=== PATIENT | female | born 1975 | race African-American/Black ===

== ENCOUNTER 2016-04-26 09:09 | Emergency (ER) | payer OTHER ==
[2016-04-26 11:21] LABS: APPEARANCE,URINE SLIGHTLY-CLOUDY; BILIRUBIN,URINE NEGATIVE (NEGATIVE); GLUCOSE, URINE NEGATIVE (NEGATIVE); KETONES,URINE NEGATIVE (NEGATIVE); LEUKOCYTE ESTERASE,URINE NEGATIVE (NEGATIVE); NITRITE,URINE NEGATIVE (NEGATIVE); PROTEIN,URINE NEGATIVE (NEGATIVE); URINE SPECIFIC GRAVITY 1.024
--- NOTE | 2016-04-26 11:28 | ER Document Report ---
ED General - General Chief Complaint: Toothache Stated Complaint: TOOTH PAIN Information source: Patient Notes: Patient is a 40-year-old female that presents today with 2 different complaints. She initially states she has had a left upper toothache for 2 days. She denies any facial swelling, vomiting or fevers. She then states that she has had some vaginal discharge and lower abdominal "cramping" for 2-3 days. She denies any dysuria, radiation of the pain, aggravating relieving factors. She denies any nausea, vomiting, fevers, or diarrhea. TRAVEL OUTSIDE OF THE [place] IN LAST 30 DAYS: No - HPI Onset: Other - See above Onset/Duration: Gradual Quality of pain: Cramping Severity: Mild Pain Level: Denies Associated symptoms: Other - See above Exacerbated by: Denies Relieved by: Denies Similar symptoms previously: No Recently seen / treated by doctor: No - Related Data Allergies/Adverse Reactions: amoxicillin [Amoxicillin] Allergy (Verified 04/26/16 09:18) ketorolac [Ketorolac] Allergy (Verified 04/26/16 09:18) Past Medical History - General Information source: Patient - Social History Smoking Status: Never Smoker Cigarette use (# per day): No Chew tobacco use (# tins/day): No Smoking Education Provided: No Frequency of alcohol use: None Drug Abuse: None Family History: Reviewed & Not Pertinent Patient has suicidal ideation: No Patient has homicidal ideation: No - Past Medical History Cardiac Medical History: Reports: Hx Hypertension Pulmonary Medical History: Reports: Hx Asthma Neurological Medical History: Reports: Hx Migraine Renal/ Medical History: Denies: Hx Peritoneal Dialysis Psychiatric Medical History: Reports: Hx Depression Past Surgical History: Reports: Hx Tonsillectomy - 1987, Hx Tubal Ligation - Immunizations Hx Diphtheria, Pertussis, Tetanus Vaccination: Yes Review of Systems - Review of Systems Constitutional: denies: Fever EENT: Nose discharge Gastrointestinal: denies: Diarrhea, Vomiting, Black stools, Rectal bleeding Genitourinary: Discharge. denies: Dysuria, Flank pain, Hematuria, Urgency Female Genitourinary: denies: Musculoskeletal: denies: Joint pain Skin: Other - no hives. denies: Rash Neurological/Psychological: Other - no slurred speech -: Yes All other systems reviewed and negative Physical Exam - Vital signs Vitals: Temp Pulse Resp BP Pulse Ox 97.9 F 90 16 130/88 H 99 04/26/16 09:17 04/26/16 09:17 04/26/16 09:17 04/26/16 09:04/26/16 09:17 Notes: Reviewed vital signs and nursing note as charted by RN. CONSTITUTIONAL: Alert and oriented and responds appropriately to questions. Well -appearing; well-nourished HEAD: Normocephalic; atraumatic EYES: PERRL; Conjunctivae clear, sclerae non-icteric ENT: Normal nose; patient has some mild decay in the left upper posterior molar region without any obvious swelling, induration, or fluctuance. No facial swelling or mastoid tenderness. NECK: Supple without meningismus; non-tender; no cervical lymphadenopathy, no masses ABD/GI: Normal bowel sounds; non-distended; soft, no obvious tenderness to deep palpation of all 4 quadrants of the abdomen including the suprapubic region BACK: The back appears normal and is non-tender to palpation, there is no CVA tenderness EXT: Normal ROM in all joints; non-tender to palpation; no cyanosis, no effusions, no edema SKIN: Normal color for age and race; warm; dry; good turgor; capillary refill < 2 seconds; no acute lesions noted NEURO: Moves all extremities equally; Motor and sensory function intact PSYCH: The patient's mood and manner are appropriate. Grooming and personal hygiene are appropriate. Course - Re-evaluation Re-evalutation: 04/26/16 11:28 Given the history and physical examination I will check a urine test as well as perform a pelvic examination to make sure that there was no obvious vaginal infection. I will also help the patient find an outpatient dentist and provide antibiotics and pain medications. 04/26/16 11:56 Pelvic examination showed no obvious external lesions. Patient had a tampon that had remained in the vaginal vault. No cervical lesions. No cervical motion tenderness or adnexal masses or tenderness. Patient states she finished her period around 7 days ago. 04/26/16 12:21 Urinalysis as recorded. Pelvic examination results as recorded. Patient will be discharged home with strict return precautions as well as antibiotics for tooth pain and referral to dental. - Vital Signs Vital signs: Temp Pulse Resp BP Pulse Ox 97.9 F 90 16 130/88 H 99 04/26/16 09:17 04/26/16 09:17 04/26/16 09:17 04/26/16 09:17 04/26/16 09:17 - Laboratory Laboratory results interpreted by me: 04/26/16 11:10 Urine Urobilinogen 2.0 H Urine Ascorbic Acid 40 H Discharge - Discharge Clinical Impression: Pain, dental Retained tampon Qualifiers: Encounter type: initial encounter Qualified Code(s): T19.2XXA - Foreign body in vulva and vagina, initial encounter Condition: Good Disposition: HOME, SELF-CARE Additional Instructions: Come back immediately with any return of increased abdominal pain, tooth pain, fevers or vomiting, or any other acute problems. Please follow-up with one of the dentists that we have recommended or a dentist of your own choosing. Prescriptions: Clindamycin HCl [Cleocin 300 mg Capsule] 300 mg PO QID #28 capsule Hydrocodone/Acetaminophen [[place] 5-325 Tablet] 1 each PO Q6 PRN #12 tablet PRN Reason: For Pain
[2016-04-26] MEDS ORDERED: METRONIDAZOLE 500 MG TABLET PO ONE (12:26)
[2016-04-26 12:42] VITALS: BP 118/68
[2016-04-26 13:37] LABS: CHLAM PCR NOT DETECTED (NOT DETECT)
== END 2016-04-26 12:53 | disposition home or self-care (01) ==
LOC: ER 09:09
DX: T19.2XXA Foreign body in vulva and vagina, initial encounter (principal); X58.XXXA Exposure to other specified factors, initial encounter; K02.9 Dental caries, unspecified; K08.89 Other specified disorders of teeth and supporting structures; N89.8 Other specified noninflammatory disorders of vagina; R10.30 Lower abdominal pain, unspecified; Z88.0 Allergy status to penicillin; Z88.8 Allergy status to other drugs, medicaments and biological substances; I10 Essential (primary) hypertension; J45.909 Unspecified asthma, uncomplicated; Z98.51 Tubal ligation status
CPT/HCPCS: 81001; 81025; 87210; 87491; 87591; 99283

== ENCOUNTER 2016-05-08 18:25 | Emergency (ER) | payer OTHER | END 2016-05-09 00:03 | disposition left against medical advice (07) | LOC: ER 18:25 | DX: Z53.21 Procedure and treatment not carried out due to patient leaving prior to being seen by health care provider (principal) ==

== ENCOUNTER 2016-09-13 15:48 | Emergency (ER) | payer OTHER ==
--- NOTE | 2016-09-13 18:12 | ER Document Report ---
HPI - HPI Pain Level: 3 Context: 40 yo female c/o dental pain x several days. pt also requesting refills of asthma meds and BP meds. pt is out of meds x 1 week. unable to get appointment at [facility] until end of September per patient. reports her blood pressure is going up and down, and having cough and wheezing. Associated Symptoms: Nonproductive cough Exacerbated by: Denies Relieved by: Denies - ROS Systems Reviewed and Negative: Yes All other systems reviewed and negative - REPRODUCTIVE Reproductive: DENIES: : - DERM Skin Color: Normal Past Medical History - General Information source: Patient - Social History Smoking Status: Current Every Day Smoker Frequency of alcohol use: None Drug Abuse: None Lives with: Family Family History: Reviewed & Not Pertinent Patient has suicidal ideation: No Patient has homicidal ideation: No - Past Medical History Cardiac Medical History: Reports: Hx Hypertension Pulmonary Medical History: Reports: Hx Asthma Neurological Medical History: Reports: Hx Migraine Renal/ Medical History: Denies: Hx Peritoneal Dialysis Psychiatric Medical History: Reports: Hx Depression Past Surgical History: Reports: Hx Tonsillectomy - 1987, Hx Tubal Ligation - Immunizations Hx Diphtheria, Pertussis, Tetanus Vaccination: Yes Vertical Provider Document - CONSTITUTIONAL Agree With Documented VS: Yes Exam Limitations: No Limitations General Appearance: WD/WN, No Apparent Distress - INFECTION CONTROL TRAVEL OUTSIDE OF THE [place] IN LAST 30 DAYS: No - HEENT HEENT: Atraumatic Mouth Diagram: 1 - pain 2 - pain Notes: no gingival edema appreciated - NECK Neck: Supple - RESPIRATORY Respiratory: Wheezing - few expiratory wheezes. no increased work of breathing O2 Sat by Pulse Oximetry: 95 - CARDIOVASCULAR Cardiovascular: Regular Rate, Regular Rhythm - GI/ABDOMEN Gastrointestinal: Abdomen Soft - MUSCULOSKELETAL/EXTREMETIES Musculoskeletal/Extremeties: PARAMJIT, FROM Course - Vital Signs Vital signs: Temp Pulse Resp BP Pulse Ox 98.0 F 97 16 139/85 H 95 09/13/16 15:54 09/13/16 15:54 09/13/16 15:54 09/13/16 15:54 09/13/16 15:54 Discharge - Discharge Clinical Impression: Tooth ache HTN (hypertension) Qualifiers: Hypertension type: essential hypertension Qualified Code(s): I10 - Essential ( primary) hypertension Asthma Qualifiers: Asthma severity: mild intermittent Asthma complication type: uncomplicated Qualified Code(s): J45.20 - Mild intermittent asthma, uncomplicated Instructions: [facility], Penicillin V K ([facility]), Toothache ([facility]) Prescriptions: Albuterol Sulfate [Proair HFA Inhalation Aerosol 8.5 gm MDI] 2 puff IH Q4H PRN # 1 mdi PRN Reason: Budesonide/Formoterol Fumarate [Symbicort Hfa 160-4.5 Mcg Inhaler 6 gm] 2 puff IH Q12 #1 inhaler Clindamycin HCl 150 mg PO Q6H PRN #40 capsule PRN Reason: Hydrochlorothiazide 25 mg PO DAILY #30 tablet Forms: Return to Work
[2016-09-13 18:49] VITALS: BP 130/80
== END 2016-09-13 18:47 | disposition home or self-care (01) ==
LOC: ER 15:48
DX: I10 Essential (primary) hypertension (principal); J45.20 Mild intermittent asthma, uncomplicated; K08.89 Other specified disorders of teeth and supporting structures; F17.200 Nicotine dependence, unspecified, uncomplicated
CPT/HCPCS: 99282

== ENCOUNTER 2016-10-01 06:39 | Emergency (ER) | payer OTHER ==
--- NOTE | 2016-10-01 07:15 | ER Document Report ---
ED General - General Chief Complaint: Urinary Problem Stated Complaint: URINARY SYMPTOMS Time Seen by Provider: 10/01/16 06:55 Mode of Arrival: Ambulatory Information source: Patient Notes: 40-year-old female presents with complaints of pain with urination and blood. Patient notes she had her menses last week denies any fevers or chills admits to suprapubic left lower quadrant abdominal pain Denies any nausea vomiting TRAVEL OUTSIDE OF THE [place] IN LAST 30 DAYS: No - HPI Onset: Yesterday Onset/Duration: Sudden Quality of pain: Sharp Severity: Mild Pain Level: 1 Associated symptoms: Other Exacerbated by: Other - Urination Relieved by: Denies Similar symptoms previously: No Recently seen / treated by doctor: No - Related Data Allergies/Adverse Reactions: amoxicillin [Amoxicillin] Allergy (Verified 09/13/16 15:52) ketorolac [Ketorolac] Allergy (Verified 09/13/16 15:52) Past Medical History - Social History Smoking Status: Never Smoker Cigarette use (# per day): No Chew tobacco use (# tins/day): No Smoking Education Provided: No Family History: Reviewed & Not Pertinent Patient has suicidal ideation: No Patient has homicidal ideation: No - Past Medical History Cardiac Medical History: Reports: Hx Hypertension Pulmonary Medical History: Reports: Hx Asthma Neurological Medical History: Reports: Hx Migraine Renal/ Medical History: Denies: Hx Peritoneal Dialysis Psychiatric Medical History: Reports: Hx Depression Past Surgical History: Reports: Hx Oral Surgery, Hx Tonsillectomy - 1987, Hx Tubal Ligation - Immunizations Hx Diphtheria, Pertussis, Tetanus Vaccination: Yes Review of Systems - Review of Systems Notes: REVIEW OF SYSTEMS: CONSTITUTIONAL : Denies fever, chills, or sweats. Denies recent illness. EENT: Denies eye, ear, throat, or mouth pain or symptoms. Denies nasal or sinus congestion or discharge. Denies throat, tongue, or mouth swelling or difficulty swallowing. CARDIOVASCULAR: Denies chest pain. Denies palpitations or racing or irregular heart beat. Denies ankle edema. RESPIRATORY: Denies cough, cold, or chest congestion. Denies shortness of breath, difficulty breathing, or wheezing. GASTROINTESTINAL: Denies abdominal pain or distention. Denies nausea, vomiting , or diarrhea. Denies blood in vomitus, stools, or per rectum. Denies black, tarry stools. Denies constipation. GENITOURINARY: Admits to pain with urination blood in urine FEMALE GENITOURINARY: Denies vaginal bleeding, heavy or abnormal periods, irregular periods. Denies vaginal discharge or odor. MUSCULOSKELETAL: Denies back or neck pain or stiffness. Denies joint pain or swelling. SKIN: Denies rash, lesions or sores. HEMATOLOGIC : Denies easy bruising or bleeding. LYMPHATIC: Denies swollen, enlarged glands. NEUROLOGICAL: Denies confusion or altered mental status. Denies passing out or loss of consciousness. Denies dizziness or lightheadedness. Denies headache. Denies weakness or paralysis or loss of use of either side. Denies problems with gait or speech. Denies sensory loss, numbness, or tingling. Denies seizures. PSYCHIATRIC: Denies anxiety or stress. Denies depression, suicidal ideation, or homicidal ideation. ALL OTHER SYSTEMS REVIEWED AND NEGATIVE. PHYSICAL EXAMINATION: GENERAL: Well-appearing, well-nourished and in no acute distress. HEAD: Atraumatic, normocephalic. EYES: Pupils equal round and reactive to light, extraocular movements intact, conjunctiva are normal. ENT: Nares patent, oropharynx clear without exudates. Moist mucous membranes. NECK: Normal range of motion, supple without lymphadenopathy LUNGS: Breath sounds clear to auscultation bilaterally and equal. No wheezes rales or rhonchi. HEART: Regular rate and rhythm without murmurs ABDOMEN: Soft, mild suprapubic left lower quadrant abdominal pain no rebound no guarding no peritoneal signs Female : deferred Musculoskeletal: Normal range of motion, no pitting or edema. No cyanosis. NEUROLOGICAL: Cranial nerves grossly intact. Normal speech, normal gait. Normal sensory, motor exams PSYCH: Normal mood, normal affect. SKIN: Warm, Dry, normal turgor, no rashes or lesions noted. Dictation was performed using [employer] voice recognition software Physical Exam - Vital signs Vitals: Temp Pulse Resp BP Pulse Ox 97.3 F 78 16 136/72 H 99 10/01/16 06:45 10/01/16 06:45 10/01/16 06:45 10/01/16 06:45 10/01/16 06:45 Course - Re-evaluation Re-evalutation: 10/01/16 07:15 Urinalysis hCG are pending at this time 10/01/16 07:51 Urinalysis is consistent with an infectious process, otherwise patient is in no distress and will be discharged at this time After performing a Medical Screening Examination, I estimate there is LOW risk for ACUTE APPENDICITIS, BOWEL OBSTRUCTION, ACUTE CHOLECYSTITIS, PERFORATED DIVERTICULITIS, INCARCERATED HERNIA, PANCREATITIS, PELVIC INFLAMMATORY DISEASE, PERFORATED ULCER, ECTOPIC , or TUBO-OVARIAN ABSCESS, thus I consider the discharge disposition reasonable. Also, there is no evidence or peritonitis , sepsis, or toxicity. I have reevaluated this patient multiple times and no significant life threatening changes are noted. The patient and I have discussed the diagnosis and risks, and we agree with discharging home with close follow-up with the understanding that symptoms and presentations can change. We also discussed returning to the Emergency Department immediately if new or worsening symptoms occur. We have discussed the symptoms which are most concerning (e.g., bloody stool, fever, changing or worsening pain, vomiting) that necessitate immediate return. - Vital Signs Vital signs: Temp Pulse Resp BP Pulse Ox 97.3 F 78 16 136/72 H 99 10/01/16 06:45 10/01/16 06:45 10/01/16 06:45 10/01/16 06:45 10/01/16 06:45 - Laboratory Laboratory results interpreted by me: 10/01/16 07:22 Urine Protein 100 H Urine Blood LARGE H Ur Leukocyte Esterase MODERATE H Discharge - Discharge Clinical Impression: UTI (urinary tract infection) Qualifiers: Urinary tract infection type: acute cystitis Hematuria presence: with hematuria Qualified Code(s): N30.01 - Acute cystitis with hematuria Condition: Stable Disposition: HOME, SELF-CARE Instructions: Urinary Tract Infection ([facility]) Additional Instructions: Follow up with your physician tomorrow for further care or return to the ED IMMEDIATELY if symptoms worsen or new concerns occur. If you cannot afford to follow up with your primary care physician a list of low cost clinics have been provided at the end of your discharge papers as well. Prescriptions: Cephalexin Monohydrate [Keflex 500 mg Capsule] 500 mg PO BID #20 capsule Phenazopyridine HCl [Pyridium 100 Mg Tablet] 100 mg PO Q8 #9 tablet
[2016-10-01 07:45] LABS: AMORPHOUS SEDIMENT,URINE TRACE /HPF; APPEARANCE,URINE SLIGHTLY-CLOUDY; BILIRUBIN,URINE NEGATIVE (NEGATIVE); GLUCOSE, URINE NEGATIVE (NEGATIVE); KETONES,URINE NEGATIVE (NEGATIVE); LEUKOCYTE ESTERASE,URINE MODERATE (NEGATIVE); NITRITE,URINE NEGATIVE (NEGATIVE); PROTEIN,URINE 100 mg/dL (NEGATIVE); URINE SPECIFIC GRAVITY 1.017; UROBILINOGEN,URINE NEGATIVE mg/dL (<2.0)
[2016-10-01 08:20] VITALS: BP 131/79
== END 2016-10-01 08:15 | disposition home or self-care (01) ==
LOC: ER 06:39
DX: N30.01 Acute cystitis with hematuria (principal); R30.0 Dysuria; R10.32 Left lower quadrant pain; J45.909 Unspecified asthma, uncomplicated; I10 Essential (primary) hypertension; Z88.0 Allergy status to penicillin; Z88.8 Allergy status to other drugs, medicaments and biological substances
CPT/HCPCS: 81001; 81025; 99283

== ENCOUNTER 2017-06-22 17:37 | Emergency (ER) | payer SELFPAY ==
[2017-06-22] MEDS ORDERED: PREDNISONE 20 MG TABLET PO ONE (18:38)
[2017-06-22] MEDS ORDERED: IPRATROPIUM/ALBUTEROL 0.5-2.5 MG/3 ML AMPUL NEB ONE (18:38)
[2017-06-22] MEDS ORDERED: CLINDAMYCIN HCL 150 MG CAPSULE PO ONE (18:38)
[2017-06-22] MEDS ORDERED: LIDOCAINE 2% VISCOUS SOLN 20 ML UDCUP PO ONE (18:40)
[2017-06-22] MEDS ORDERED: ALBUTEROL SULFATE HFA (90 MCG/PUFF) 8 GM MDI (1 MDI/ER DISP) IH ONE (18:40)
--- NOTE | 2017-06-22 18:41 | ER Document Report ---
ED General - General Chief Complaint: Toothache Stated Complaint: TOOTH PAIN Time Seen by Provider: 06/22/17 18:23 Mode of Arrival: Ambulatory Information source: Patient Notes: 41-year-old female presents to ED for complaint of left upper back tooth pain for 2 days. She states the pain is actually been for over a month but the filling fell out 2 days ago. She states she is contacted a dentist but they were unable to see her. She states that there is no cold or heat sensitivity but there is sensitivity to food. She states she did not know the care in [facility] dentist was available. She states she has not called those and she will call them on Sunday. Patient states she also has a history of asthma and has been out of her asthma medicine and her blood pressure medicine. She states she her albuterol inhaler is empty. TRAVEL OUTSIDE OF THE [place] IN LAST 30 DAYS: No - HPI Onset: Other - States pain is been for about a month but it got a less worse when the filling fell out 2 days ago Onset/Duration: Intermittent Quality of pain: Sharp, Throbbing Severity: Moderate Pain Level: 4 Associated symptoms: Shortness of breath - Wheezing, Other - Dental pain Exacerbated by: Food Relieved by: Denies Similar symptoms previously: Yes Recently seen / treated by doctor: No - Related Data Allergies/Adverse Reactions: amoxicillin [Amoxicillin] Allergy (Verified 06/22/17 17:38) ketorolac [Ketorolac] Allergy (Verified 06/22/17 17:38) Past Medical History - General Information source: Patient - Social History Smoking Status: Never Smoker Cigarette use (# per day): No Chew tobacco use (# tins/day): No Smoking Education Provided: No Frequency of alcohol use: Occasional Drug Abuse: None Lives with: Family Family History: Arthritis, CVA, Hyperlipidemia, Hypertension, Malignancy, Thyroid Disfunction. denies: CAD, COPD, DM Patient has suicidal ideation: No Patient has homicidal ideation: No - Past Medical History Cardiac Medical History: Reports: Hx Hypertension Pulmonary Medical History: Reports: Hx Asthma EENT Medical History: Reports: None Neurological Medical History: Reports: Hx Migraine Endocrine Medical History: Reports: None Renal/ Medical History: Reports: None Malignancy Medical History: Reports: None GI Medical History: Reports: None Musculoskeltal Medical History: Reports None Skin Medical History: Reports None Psychiatric Medical History: Reports: Hx Depression Traumatic Medical History: Reports: None Infectious Medical History: Reports: None Past Surgical History: Reports: Hx Oral Surgery - dental, Hx Tonsillectomy - 1988, Hx Tubal Ligation - Immunizations Immunizations up to date: Yes Hx Diphtheria, Pertussis, Tetanus Vaccination: Yes Review of Systems - Review of Systems Constitutional: No symptoms reported EENT: Dental problem Cardiovascular: No symptoms reported Respiratory: Cough, Short of breath, Wheezing Gastrointestinal: No symptoms reported Genitourinary: No symptoms reported Female Genitourinary: No symptoms reported Musculoskeletal: No symptoms reported Skin: No symptoms reported Hematologic/Lymphatic: No symptoms reported Neurological/Psychological: No symptoms reported -: Yes All other systems reviewed and negative Physical Exam - Vital signs Vitals: Temp Pulse Resp BP Pulse Ox 98.9 F 93 16 135/80 H 96 06/22/17 17:45 06/22/17 17:45 06/22/17 17:45 06/22/17 17:45 06/22/17 17:45 Interpretation: Normal - General General appearance: Appears well, Alert - HEENT Head: Normocephalic, Atraumatic Eyes: Normal Pupils: PERRL Ears: Normal External canal: Normal Tympanic membrane: Normal Sinus: Normal Nasal: Normal Mouth/Lips: Caries Teeth diagram: 1 - Dental cavity tooth #15 she does not have any of her wisdom teeth Pharynx: Normal Neck: Normal - Respiratory Respiratory status: No respiratory distress Chest status: Nontender Breath sounds: Nonproductive cough, Wheezing Chest palpation: Normal - Cardiovascular Rhythm: Regular Heart sounds: Normal auscultation Murmur: No - Abdominal Inspection: Normal Distension: No distension Bowel sounds: Normal Tenderness: Nontender Organomegaly: No organomegaly - Back Back: Normal, Nontender - Extremities General upper extremity: Normal inspection, Nontender, Normal color, Normal ROM , Normal temperature General lower extremity: Normal inspection, Nontender, Normal color, Normal ROM , Normal temperature, Normal weight bearing. No: Viki's sign - Neurological Neuro grossly intact: Yes Cognition: Normal Orientation: AAOx4 [place] Coma Scale Eye Opening: Spontaneous [place] Coma Scale Verbal: Oriented [place] Coma Scale Motor: Obeys Commands [place] Coma Scale Total: 15 Speech: Normal Motor strength normal: LUE, RUE, LLE, RLE Sensory: Normal - Psychological Associated symptoms: Normal affect, Normal mood - Skin Skin Temperature: Warm Skin Moisture: Dry Skin Color: Normal Course - Re-evaluation Re-evalutation: 06/22/17 20:04 Patient presented to ED for dental pain. When I was assessing her for the dental pain she says all when I also have asthma and him having a bad attack right now I do not have an albuterol inhaler at home. She states she has been wheezing for several days and she [facility] and they stated that they could not get her in for 2 months. She states she is also out of her blood pressure medicine. She states she takes hydrochlorothiazide 25 mg p.o. daily been out of that for couple days. He says her albuterol inhaler has been up for at least several days. Patient was treated with albuterol and DuoNeb nebulizer treatments prednisone and clindamycin for her dental pain she was also given viscous lidocaine for her dental pain on her tooth. Patient was discharged home with a syringe of viscous lidocaine and prescriptions for hydrochlorothiazide clindamycin and prednisone. Patient was given the name and number for the care in [facility]. She is also supposed to keep up with her care in [facility] and call them on Sunday and tell them she is out of her blood pressure and asthma medication that I have given her 1 month supply of hydrochlorothiazide and an albuterol inhaler but that she does need to have these medications refilled when these run out. Patient's respirations are much better after her breathing treatments and steroids. She is no longer wheezing respirations are regular and unlabored. Will discharge home at this time. - Vital Signs Vital signs: Temp Pulse Resp BP Pulse Ox 98.9 F 93 16 135/80 H 96 06/22/17 17:45 06/22/17 17:45 06/22/17 17:45 06/22/17 17:45 06/22/17 17:45 Discharge - Discharge Clinical Impression: Pain due to dental caries Asthma exacerbation Qualifiers: Asthma severity: unspecified severity Asthma persistence: unspecified Qualified Code(s): J45.901 - Unspecified asthma with (acute) exacerbation Condition: Stable Disposition: HOME, SELF-CARE Additional Instructions: ASTHMA: You have been diagnosed as having asthma. This is a condition where there is episodic tightness in the bronchial tubes. Allergies, infections, and polluted or cold air may be contributing factors. Emergency treatment of a severe asthma attack may include adrenaline shots , or bronchodilator aerosol. You may feel lightheaded, have a decreased exercise tolerance and a rapid pulse for an hour or two. Rest and get plenty of fluids. Home treatment of asthma requires bronchodilator drugs. These can be administered by injection, inhalation, or by mouth. Antibiotics and corticosteroids may be required for some patients. You should avoid chemical fumes, dusts, pollens, and exercising in very cold or dry air. If you smoke, stop!! If you develop a fever, increased wheezing, chest pain, or severe shortness of breath, you should contact the doctor immediately STEROID MEDICATION: You have been given an injection of or oral medicine of the cortisone/ steroid class. This medication is used to control inflammation or allergy. Danilo t is usually only given for a short period of time, until the acute process subsides. There are usually no side effects from short-term use of cortisone-like medications. Some persons feel an increased sense of well-being and are not sleepy at bedtime. Long-term use of cortisone medications is best avoided, unless required for a severe condition. If your condition does not remit, or relapses after the course of corticosteroid medication, you should consult your physician. INHALED BRONCHODILATORS: You have received treatment(s) of and/or prescription for an inhaled bronchodilator -- a medication which stimulates the airways in the lung to dilate. This improves the flow of air in asthma, bronchitis, and emphysema. These medicines have some similarity to adrenaline, and can cause similar side effects: shakiness, racing heart, and a sense of nervousness. These side effects decrease with time. Contact your doctor if these side effects are severe. Do not over-use the medicine. Too-frequent use of the inhaler may make it ineffective. Call your doctor if the inhaler is not controlling your symptoms at the prescribed doses. TOOTHACHE: Your pain is due to dental decay. The tooth must be repaired in order for you to feel better. You will, therefore, be referred to a dentist. We do not have dentists on the staff at [facility]. Severe swelling or drainage around a tooth usually means a dental abscess. This also requires evaluation and treatment by the dentist, but antibiotics may be prescribed while awaiting dental treatment. You should be rechecked immediately if you develop major swelling of the face, increasing pain, a lump in the jaw or gums, headache, difficulty swallowing, or fever. CLINDAMYCIN: You have been given a prescription for the antibiotic clindamycin. It is often prescribed for infections in the mouth, such as dental infections or abscesses, and for skin infections due to MRSA. It's important that you take all the medication, unless instructed otherwise by your physician. Failure to complete the entire course can result in relapse of your condition. Common side effects of antibiotics include nausea, intestinal cramping, or diarrhea. Women may develop vaginal yeast infections, and babies can get yeast (thrush) in the mouth following the use of antibiotics. Contact your physician if you develop significant side effects from this medication. Allergy to this antibiotic can result in hives, wheezing, faintness, or itching. If symptoms of allergy occur, stop the medication and call the doctor. You have been given a syringe full of viscous lidocaine. You can put a small amount of this lidocaine on your finger and put it on your tooth and around your tooth be sure you get some in the tooth every 2-3 hours for your pain. FOLLOW-UP CARE: You have been referred for follow-up care to the dentists listed below. Call the dentists office for an appointment as you were instructed or within the next two days. If you experience worsening or a significant change in your symptoms, notify the physician immediately or return to the Emergency Department at any time for re-evaluation. [facility] [address] [place], [place] [phone] [facility] [address] [place] [address] [facility] [address] [facility] [address] [facility] [address] [facility]. [facility] [address] [email or web address] [address] [place] [address] Sunday- 8:00am to 5:00 pm Will see patients from other [facility]. Charges based on income and family size and accepts Medicare, Medicaid, and Insurances Will pull molars [facility], [facility] [id number] Hours of Operation 8:00 am - 4:30 pm weekdays The following dental offices accept Medicaid: [facility] Dr. Bey Dr. Ordoñez Dr. Langston Dr. Maradiaga Alberto Piña, [place], and [place] oral surgery Dr. Lopez ([place]) Dr. Hughes ([place]) [facility] Drs. Nielsen ([place]) Dr. Garcia ([place]) [facility] Dr. Sahu ([place]) Drs. Denise and ([place]) Medicaid Care Line Prescriptions: Clindamycin HCl 300 mg PO Q6HP PRN #28 capsule PRN Reason: Hydrochlorothiazide 25 mg PO DAILY #30 tablet Prednisone [Deltasone 20 mg Tablet] 3 tab PO DAILY 5 Days tablet Forms: Elevated Blood Pressure Referrals: [facility] [Primary Care Provider] - Follow up as needed
[2017-06-22] MEDS: ALBUTEROL SULFATE 0.083% NEB 2.5 MG/3 ML AMPUL NEB SCH ×2 (18:51→19:39)
[2017-06-22 20:27] VITALS: BP 137/82
== END 2017-06-22 20:20 | disposition home or self-care (01) ==
LOC: ER 17:37
DX: K02.9 Dental caries, unspecified (principal); K08.89 Other specified disorders of teeth and supporting structures; J45.901 Unspecified asthma with (acute) exacerbation; T48.6X6A Underdosing of antiasthmatics, initial encounter; Z91.128 Patient's intentional underdosing of medication regimen for other reason; Z91.14 Patient's other noncompliance with medication regimen; I10 Essential (primary) hypertension; T50.2X6A Underdosing of carbonic-anhydrase inhibitors, benzothiadiazides and other diuretics, initial encounter; R05 Cough; Z88.0 Allergy status to penicillin; Z88.8 Allergy status to other drugs, medicaments and biological substances
CPT/HCPCS: 94640 ×2; 99282; J3490 ×2; J7512; J7620

== ENCOUNTER 2017-08-04 20:19 | Emergency (ER) | payer SELFPAY ==
[2017-08-04] MEDS ORDERED: ALBUTEROL SULFATE 0.083% NEB 2.5 MG/3 ML AMPUL NEB ONE (21:51)
[2017-08-04] MEDS ORDERED: IPRATROPIUM/ALBUTEROL 0.5-2.5 MG/3 ML AMPUL NEB ONE (21:51)
[2017-08-04] MEDS ORDERED: DOXYCYCLINE HYCLATE 100 MG TABLET PO ONE (22:07)
[2017-08-04] MEDS ORDERED: PREDNISONE 20 MG TABLET PO ONE (22:07)
[2017-08-04] MEDS ORDERED: GUAIFENESIN/CODEINE PHOS 100-10 MG/ 5 ML UDC PO ONE (22:09)
--- NOTE | 2017-08-04 22:09 | ER Document Report ---
ED General - General Chief Complaint: Asthma Exacerbation Stated Complaint: CHEST PAIN Time Seen by Provider: 08/04/17 21:43 Mode of Arrival: Ambulatory Information source: Patient, Relative Notes: 41-year-old female with a history of asthma, hypertension presents with complaint of shortness of breath that started 3 days prior to arrival. Patient has had associated dry, persistent cough and chest pain with coughing only despite her albuterol inhaler. Patient was seen 3 weeks prior to arrival and placed on prednisone and a antibiotic for which she is unsure of the name. Patient denies any new exposures, sick contacts. She states cough worsens anytime "I go to bed and shut my door". Patient has not required hospitalization or intubation for asthma. She denies tobacco use or secondhand smoke exposure. TRAVEL OUTSIDE OF THE [place] IN LAST 30 DAYS: No - HPI Onset: Other - 3 days prior to arrival Quality of pain: Burning Associated symptoms: Nonproductive cough, Shortness of breath. denies: Fever, Hoarseness, Nausea, Vomiting Exacerbated by: Denies Relieved by: Denies Similar symptoms previously: Yes Recently seen / treated by doctor: Yes - Related Data Allergies/Adverse Reactions: amoxicillin [Amoxicillin] Allergy (Verified 06/22/17 17:38) ketorolac [Ketorolac] Allergy (Verified 06/22/17 17:38) Past Medical History - General Information source: Patient - Social History Smoking Status: Never Smoker Chew tobacco use (# tins/day): No Frequency of alcohol use: None Drug Abuse: None Lives with: Family Family History: Arthritis, CVA, Hyperlipidemia, Hypertension, Malignancy, Thyroid Disfunction. denies: CAD, COPD, DM Patient has suicidal ideation: No Patient has homicidal ideation: No - Past Medical History Cardiac Medical History: Reports: Hx Hypertension Pulmonary Medical History: Reports: Hx Asthma Neurological Medical History: Reports: Hx Migraine Renal/ Medical History: Denies: Hx Peritoneal Dialysis Psychiatric Medical History: Reports: Hx Depression Past Surgical History: Reports: Hx Oral Surgery - dental, Hx Tonsillectomy - 1987, Hx Tubal Ligation - Immunizations Immunizations up to date: Yes Hx Diphtheria, Pertussis, Tetanus Vaccination: Yes Review of Systems - Review of Systems Notes: Patient denies fever, chills, nausea, vomiting, headache, ear pain, sore throat , abdominal pain, back pain, dysuria, hematuria, rash, SI/HI. Physical Exam - Vital signs Vitals: Temp Pulse Resp BP Pulse Ox 98.5 F 99 20 127/81 H 94 08/04/17 20:34 08/04/17 20:34 08/04/17 20:34 08/04/17 20:34 08/04/17 20:34 Interpretation: Normal. No: Hypoxic, Tachypneic, Febrile Notes: PHYSICAL EXAMINATION: GENERAL: Well-appearing, well-nourished and in no acute distress. HEAD: Atraumatic, normocephalic. EYES: Pupils equal round and reactive to light, extraocular movements intact, conjunctiva are normal. ENT: Nares patent, oropharynx clear without exudates. Moist mucous membranes. NECK: Normal range of motion, supple without lymphadenopathy LUNGS: Diffuse wheezing, accessory muscle use. HEART: Regular rate and rhythm without murmurs ABDOMEN: Soft, nontender, nondistended abdomen. No guarding, no rebound. No masses appreciated. Female : deferred Musculoskeletal: Normal range of motion, no pitting or edema. No cyanosis. NEUROLOGICAL: Cranial nerves grossly intact. Normal speech, normal gait. Normal sensory, motor exams PSYCH: Normal mood, normal affect. SKIN: Warm, Dry, normal turgor, no rashes or lesions noted. Course - Re-evaluation Re-evalutation: 41-year-old female with a history of asthma, hypertension presents with complaint of shortness of breath that started 3 days prior to arrival. Patient has had associated dry, persistent cough and chest pain with coughing only despite her albuterol inhaler. Patient was seen 3 weeks prior to arrival and placed on prednisone and a antibiotic for which she is unsure of the name. Patient denies any new exposures, sick contacts. She states cough worsens anytime "I go to bed and shut my door". Patient has not required hospitalization or intubation for asthma. She denies tobacco use or secondhand smoke exposure. Upon arrival vitals reviewed. Patient does not appear toxic or dehydrated. She is in no acute distress. Exam is significant for audible wheezing, a harsh cough and mild accessory muscle use. Patient received breathing treatments, azithromycin, prednisone and Robitussin. On reevaluation she reports improvement and comfort with discharge home. 08/04/17 22:57 On reevaluation patient states her shortness of breath has greatly improved. She is very thankful. She states she will follow-up with the [facility] clinic. 08/05/17 19:49. Patient provided the opportunity to ask questions, and express concerns. Discharge instructions discussed. Patient is agreeable with discharge home. Return indications explained and discussed with the patient who displays understanding. Patient encouraged to return to the emergency department immediately with any concerns. - Vital Signs Vital signs: Temp Pulse Resp BP Pulse Ox 98.5 F 99 16 121/76 97 08/04/17 23:09 08/04/17 20:34 08/04/17 23:09 08/04/17 23:09 08/04/17 23:09 - Diagnostic Test Radiology reviewed: Pending, Image reviewed, Reports reviewed Discharge - Discharge Clinical Impression: Asthma exacerbation Qualifiers: Asthma severity: mild Asthma persistence: unspecified Qualified Code(s): J45.901 - Unspecified asthma with (acute) exacerbation Disposition: HOME, SELF-CARE Instructions: Asthma ([facility]), Inhaled Bronchodilators ([facility]) Additional Instructions: Follow up with your physician tomorrow for further care or return to the ED IMMEDIATELY if symptoms worsen or new concerns occur. If you cannot afford to follow up with your primary care physician a list of low cost clinics have been provided at the end of your discharge papers as well. Prescriptions: Guaifenesin/Codeine Phos [Robitussin-AC Syrup 59 ml] 5 ml PO QHS PRN #50 ml PRN Reason: Cough Doxycycline Hyclate 100 mg PO BID 7 Days #14 capsule Prednisone [Deltasone 20 mg Tablet] 3 tab PO DAILY 5 Days #15 tablet Forms: Elevated Blood Pressure
--- NOTE | 2017-08-04 23:15 | RADIOLOGY REPORT (SQ) ---
EXAM DESCRIPTION: CHEST 2 VIEWS COMPLETED DATE/TIME: 08/04/2017 11:07 pm REASON FOR STUDY: sob COMPARISON: 11/13/2015 EXAM PARAMETERS: NUMBER OF VIEWS: two views TECHNIQUE: Digital Frontal and Lateral radiographic views of the chest acquired. RADIATION DOSE: NA LIMITATIONS: none FINDINGS: LUNGS AND PLEURA: No opacities, masses or pneumothorax. No pleural effusion. MEDIASTINUM AND HILAR STRUCTURES: No masses or contour abnormalities. HEART AND VASCULAR STRUCTURES: Heart normal size. No evidence for failure. BONES: No acute findings. HARDWARE: None in the chest. OTHER: No other significant finding. IMPRESSION: NO ACUTE RADIOGRAPHIC FINDING IN THE CHEST. TECHNICAL DOCUMENTATION: JOB ID: [id number] [employer]- All Rights Reserved Reading location - IP/workstation name: [email or web address]
[2017-08-04 23:19] VITALS: BP 121/76
--- NOTE | 2017-08-05 10:28 | EKG REPORT ---
SEVERITY:- BORDERLINE ECG - SINUS RHYTHM BORDERLINE T WAVE ABNORMALITIES : Confirmed by: Fide Solis 05-Aug-2017 10:28:31
== END 2017-08-04 23:19 | disposition home or self-care (01) ==
LOC: ER 20:19
DX: J45.901 Unspecified asthma with (acute) exacerbation (principal); R07.9 Chest pain, unspecified; R06.02 Shortness of breath; R05 Cough; I10 Essential (primary) hypertension
CPT/HCPCS: 93005; 94640 ×2; 99285; 71046; 93010; J7512; J7620

== ENCOUNTER 2017-09-06 21:02 | Emergency (ER) | payer SELFPAY ==
--- NOTE | 2017-09-06 22:40 | ER Document Report ---
ED Breast Problem - General Chief Complaint: Breast Lump Stated Complaint: BREAST PAIN Time Seen by Provider: 09/06/17 22:29 Mode of Arrival: Ambulatory Information source: Patient Notes: 41-year-old female with hypertension, asthma presents with complaint of right breast pain. Patient states pain has been present for approximately 2 weeks. It is located on the lateral aspect of her right breast. She describes the breast pain as a stabbing, throbbing pain that is worse with palpation. She has not tried any medication for this. She denies any injury to the breast, prior similar symptoms, history of breast cancer. Patient is currently menstruating. She denies any redness of the breast warmth, discharge. She denies any recent illnesses including fever, chills, nausea, vomiting, chest pain, shortness of breath. She has never had a mammogram before. TRAVEL OUTSIDE OF THE [place] IN LAST 30 DAYS: No - HPI Patient complains to provider of: Tenderness Onset: Last week Onset/Duration: Gradual, Worse Quality of pain: Stabbing, Throbbing Severity: Mild Context: No: , Injury, Piercing Discharge description: None Associated Symptoms: denies: Chest pain, Fever, Nausea, Vomiting, Shortness of breath Similar symptoms previously: No Recently seen / treated by doctor: No - Related Data Allergies/Adverse Reactions: amoxicillin [Amoxicillin] Allergy (Verified 06/22/17 17:38) ketorolac [Ketorolac] Allergy (Verified 06/22/17 17:38) Past Medical History - General Information source: Patient, [facility] Records - Social History Smoking Status: Former Smoker Frequency of alcohol use: Occasional Drug Abuse: None Lives with: Family Family History: Arthritis, CVA, Hyperlipidemia, Hypertension, Malignancy, Thyroid Disfunction. denies: CAD, COPD, DM Patient has suicidal ideation: No Patient has homicidal ideation: No - Past Medical History Cardiac Medical History: Reports: Hx Hypertension Pulmonary Medical History: Reports: Hx Asthma Neurological Medical History: Reports: Hx Migraine Renal/ Medical History: Denies: Hx Peritoneal Dialysis Psychiatric Medical History: Reports: Hx Depression Past Surgical History: Reports: Hx Oral Surgery - dental, Hx Tonsillectomy - 1987, Hx Tubal Ligation - Immunizations Immunizations up to date: Yes Hx Diphtheria, Pertussis, Tetanus Vaccination: Yes Review of Systems - Review of Systems Notes: REVIEW OF SYSTEMS: CONSTITUTIONAL : Denies fever, chills, or sweats. Denies recent illness. Denies weight loss, recent hospitalizations. EENT: Denies visula changes, eye pain. Denies nasal or sinus congestion or discharge. Denies sore throat, oral lesions, difficulty swallowing. CARDIOVASCULAR: Denies chest pain. Denies palpitations or racing or irregular heart beat. Denies lower extremity edema. RESPIRATORY: Denies cough, cold, or chest congestion. Denies shortness of breath, difficulty breathing, or wheezing. GASTROINTESTINAL: Denies abdominal pain or distention. Denies nausea, vomiting , or diarrhea. Denies blood in vomitus, stools, or per rectum. Denies black, tarry stools. Denies constipation. GENITOURINARY: Denies difficulty urinating, painful urination, burning, frequency, blood in urine, or vaginal discharge. MUSCULOSKELETAL: Denies back or neck pain or stiffness. Denies joint pain or swelling. SKIN: Denies rash, lesions or sores. HEMATOLOGIC : Denies easy bruising or bleeding. LYMPHATIC: Denies swollen, enlarged glands. NEUROLOGICAL: Denies confusion or altered mental status. Denies passing out or loss of consciousness. Denies dizziness or lightheadedness. Denies headache. Denies weakness or paralysis or loss of use of either side. Denies problems with gait or speech. Denies sensory loss, numbness, or tingling. Denies seizures. PSYCHIATRIC: Denies anxiety or stress. Denies depression, suicidal ideation, or homicidal ideation. Physical Exam - Vital signs Vitals: Temp Pulse Resp BP Pulse Ox 98.8 F 75 16 145/78 H 96 09/06/17 21:46 09/06/17 21:46 09/06/17 21:46 09/06/17 21:46 09/06/17 21:46 Interpretation: Normal, Hypertensive - Notes Notes: PHYSICAL EXAMINATION: GENERAL: Well-appearing, well-nourished and in no acute distress. HEAD: Atraumatic, normocephalic. EYES: Pupils equal round and reactive to light, extraocular movements intact, conjunctiva are normal. ENT: Nares patent, oropharynx clear without exudates. Moist mucous membranes. NECK: Normal range of motion, supple without lymphadenopathy LUNGS: Breath sounds clear to auscultation bilaterally and equal. No wheezes rales or rhonchi. HEART: Regular rate and rhythm without murmurs ABDOMEN: Soft, nontender, nondistended abdomen. No guarding, no rebound. No masses appreciated. Female breast: 3 pea-sized masses of the right breast at 8 9 and 10:00 no associated erythema, induration or fluctuance. No nipple discharge. Musculoskeletal: Normal range of motion, no pitting or edema. No cyanosis. NEUROLOGICAL: Cranial nerves grossly intact. Normal speech, normal gait. Normal sensory, motor exams PSYCH: Normal mood, normal affect. SKIN: Warm, Dry, normal turgor, no rashes or lesions noted. Course - Re-evaluation Re-evalutation: 09/06/17 22:50 41-year-old female with hypertension, asthma presents with complaint of right breast pain. Patient states pain has been present for approximately 2 weeks. It is located on the lateral aspect of her right breast. She describes the breast pain as a stabbing, throbbing pain that is worse with palpation. She has not tried any medication for this. She denies any injury to the breast, prior similar symptoms, history of breast cancer. Patient is currently menstruating. Patient was seen by myself upon arrival. Vital signs were reviewed. Patient is afebrile, mildly hypertensive and not hypoxic. Patient does not appear toxic or dehydrated. They are in no acute distress. Previous medical records and nursing notes reviewed. Significant findings include 3 tender pea-sized area of the right breast without associated erythema, induration or fluctuance. No nipple discharge. Left breast within normal limits. I did explain to the patient that she would require a mammogram. I have [facility] or the health department for this. Patient advised to take Tylenol as needed for pain. Patient provided the opportunity to ask questions, and express concerns. Discharge instructions discussed. Patient is agreeable with discharge home. Return indications explained and discussed with the patient who displays understanding. Patient encouraged to return to the emergency department immediately with any concerns. 09/06/17 22:51 - Vital Signs Vital signs: Temp Pulse Resp BP Pulse Ox 98.8 F 75 16 145/78 H 96 09/06/17 21:46 09/06/17 21:46 09/06/17 21:46 09/06/17 21:46 09/06/17 21:46 Discharge - Discharge Clinical Impression: Breast lump or mass Condition: Good Disposition: HOME, SELF-CARE Instructions: Mammography ([facility]) Additional Instructions: You may also call the [facility] health department of [place] for further assistance. You will need a mammogram for definitive diagnosis. Please return if your breast pain worsens, you notice redness around the area or you experience discharge from the nipples. Follow up with your physician tomorrow for further care or return to the ED IMMEDIATELY if symptoms worsen or new concerns occur. If you cannot afford to follow up with your primary care physician a list of low cost clinics have been provided at the end of your discharge papers as well. Forms: Elevated Blood Pressure Referrals: [facility] - Follow up as needed [facility] [Provider Group] - Follow up as needed
[2017-09-06 23:02] VITALS: BP 140/86
== END 2017-09-06 23:02 | disposition home or self-care (01) ==
LOC: ER 21:02
DX: N63.11 Unspecified lump in the right breast, upper outer quadrant (principal); N63.13 Unspecified lump in the right breast, lower outer quadrant; N64.4 Mastodynia; Z87.891 Personal history of nicotine dependence; I10 Essential (primary) hypertension; J45.909 Unspecified asthma, uncomplicated
CPT/HCPCS: 99283

== ENCOUNTER → 2017-10-18 | Outpatient (CLI) | payer OTHER, MEDICAID ==
--- NOTE | 2017-10-18 17:03 | WOMENS IMAGING REPORT ---
EXAM DESCRIPTION: BILAT DIAGNOSTIC MAMMO W/CAD; U/S BREAST UNILAT LIMITED COMPLETED DATE/TIME: 10/18/2017 10:43 am; 10/18/2017 11:29 am REASON FOR STUDY: RT BREAST LUMP N63.10; RT BREAST PALP; N63.10; LEFT BREAST N63.10 UNSPECIFIED LUM P IN THE RIGHT BREAST, UNSPECIFIED PAULO COMPARISON: None. TECHNIQUE: Standard craniocaudal and mediolateral oblique views of each breast recorded using digita l acquisition. Additional right breast 90 mediolateral and exaggerated craniocaudad views. Cone compression right upper outer quadrant in an area of palpable abnormality in the X CC and MLO orientations. Bilateral breast ultrasound was also performed. LIMITATIONS: None. FINDINGS: RIGHT BREAST MASSES: In the right breast laterally about 4 to 5 cm from the nipple, a 3 cm mammographic nodule is present with well-circumscribed margins and low density. This was shown to represent a breast parenc hymal cyst at ultrasound today. This correlates with the palpable marker for right breast lump. CALCIFICATIONS: No new or suspicious calcifications. ARCHITECTURAL DISTORTION: None. DEVELOPING DENSITY: None. ASYMMETRY: None noted. OTHER: No other significant findings. LEFT BREAST MASSES: In the medial left breast, 5 cm from the nipple a well-circumscribed low-density mammographic nodule is present measuring about 1 cm in size. This was subsequently shown to represent benign marco a ast cysts at ultrasound today. CALCIFICATIONS: No new or suspicious calcifications. ARCHITECTURAL DISTORTION: None. DEVELOPING DENSITY: None. ASYMMETRY: None noted. OTHER: No other significant finding. Read with the assistance of CAD: .[facility] - R2 Cenova Version 1.3 .[facility] Imaging - R2 Cenova Version 1.3 .[facility] Imaging - R2 Cenova Version 2.4 .[facility] - R2 Cenova Version 2.4 .[facility] - R2 Health Information Administrator Version 9.2 Bilateral breast ultrasound: Patient presented with right breast lump. In the area of palpable abnormality, right breast laterall y 9 o'clock position, a 3 x 2 cm simple cyst is present. A 7 mm adjacent simple cyst is also present . In the medial right retroareolar region a 6 mm cyst is present. On the left side, upper inner quadrant 9 to 10 o'clock position 5 cm from the nipple, a 1.3 x 0.7 cm simple cyst is present. This correlates with mammographic findings. There is an adjacent 3 to 4 mm benign breast cyst at ultrasound. IMPRESSION: No mammographic or sonographic evidence for malignancy bilaterally. BREAST DENSITY: c. The breasts are heterogeneously dense, which may obscure small masses. BIRAD: 2 Benign findings. RECOMMENDATION: RECOMMENDED FOLLOW UP: Please continue yearly bilateral screening mammography/ tomos ynthesis in September 2018 SPECIFIC INTERVENTION/IMAGING/CONSULTATION RECOMMENDED:No additional intervention/ imaging/consultati on needed at this time. COMMUNICATION:Patient notified by letter COMMENT: The patient has been notified of the results by letter per SA requirements. Additional no tification policies are in place for contacting patient with suspicious or incomplete findings. Quality ID #[id number]: The [employer] recommends an annual screening mammogram for women aged 40 years or over. This facility utilizes a reminder system to ensure that all patients receive reminder letters, and/or direct phone calls for appointments. This includes reminders for routine scr eening mammograms, diagnostic mammograms, or other Breast Imaging Interventions when appropriate. Th is patient will be placed in the appropriate reminder system. The [employer] (ACR) has developed recommendations for screening MRI of the breast s in certain patient populations, to be used in conjunction with mammography. Breast MRI surveillanc e may be appropriate for women with more than 20% lifetime risk of developing breast cancer as deter mined by genetic testing, significant family history of the disease, or history of mantle radiation f or Hodgkins Disease. ACR Practice Guidelines 2008. TECHNICAL DOCUMENTATION: FINDING NUMBER: (1) ASSESSMENT: (1) JOB ID: [id number] [employer]- All Rights Reserved Reading location - IP/workstation name: [facility]
--- NOTE | 2017-10-18 17:03 | WOMENS IMAGING REPORT ---
EXAM DESCRIPTION: BILAT DIAGNOSTIC MAMMO W/CAD; U/S BREAST UNILAT LIMITED COMPLETED DATE/TIME: 10/18/2017 10:43 am; 10/18/2017 11:29 am REASON FOR STUDY: RT BREAST LUMP N63.10; RT BREAST PALP; N63.10; LEFT BREAST N63.10 UNSPECIFIED LUM P IN THE RIGHT BREAST, UNSPECIFIED PAULO COMPARISON: None. TECHNIQUE: Standard craniocaudal and mediolateral oblique views of each breast recorded using digita l acquisition. Additional right breast 90 mediolateral and exaggerated craniocaudad views. Cone compression right upper outer quadrant in an area of palpable abnormality in the X CC and MLO orientations. Bilateral breast ultrasound was also performed. LIMITATIONS: None. FINDINGS: RIGHT BREAST MASSES: In the right breast laterally about 4 to 5 cm from the nipple, a 3 cm mammographic nodule is present with well-circumscribed margins and low density. This was shown to represent a breast parenc hymal cyst at ultrasound today. This correlates with the palpable marker for right breast lump. CALCIFICATIONS: No new or suspicious calcifications. ARCHITECTURAL DISTORTION: None. DEVELOPING DENSITY: None. ASYMMETRY: None noted. OTHER: No other significant findings. LEFT BREAST MASSES: In the medial left breast, 5 cm from the nipple a well-circumscribed low-density mammographic nodule is present measuring about 1 cm in size. This was subsequently shown to represent benign marco a ast cysts at ultrasound today. CALCIFICATIONS: No new or suspicious calcifications. ARCHITECTURAL DISTORTION: None. DEVELOPING DENSITY: None. ASYMMETRY: None noted. OTHER: No other significant finding. Read with the assistance of CAD: .[facility] - R2 Cenova Version 1.3 .[facility] Imaging - R2 Cenova Version 1.3 .[facility] Imaging - R2 Cenova Version 2.4 .[facility] [place] R2 Cenova Version 2.4 .[facility] - R2 Book Cutter Version 9.2 Bilateral breast ultrasound: Patient presented with right breast lump. In the area of palpable abnormality, right breast laterall y 9 o'clock position, a 3 x 2 cm simple cyst is present. A 7 mm adjacent simple cyst is also present . In the medial right retroareolar region a 6 mm cyst is present. On the left side, upper inner quadrant 9 to 10 o'clock position 5 cm from the nipple, a 1.3 x 0.7 cm simple cyst is present. This correlates with mammographic findings. There is an adjacent 3 to 4 mm benign breast cyst at ultrasound. IMPRESSION: No mammographic or sonographic evidence for malignancy bilaterally. BREAST DENSITY: c. The breasts are heterogeneously dense, which may obscure small masses. BIRAD: 2 Benign findings. RECOMMENDATION: RECOMMENDED FOLLOW UP: Please continue yearly bilateral screening mammography/ tomos ynthesis in September 2018 SPECIFIC INTERVENTION/IMAGING/CONSULTATION RECOMMENDED:No additional intervention/ imaging/consultati on needed at this time. COMMUNICATION:Patient notified by letter COMMENT: The patient has been notified of the results by letter per SA requirements. Additional no tification policies are in place for contacting patient with suspicious or incomplete findings. Quality ID #[id number]: The [employer] recommends an annual screening mammogram for women aged 40 years or over. This facility utilizes a reminder system to ensure that all patients receive reminder letters, and/or direct phone calls for appointments. This includes reminders for routine scr eening mammograms, diagnostic mammograms, or other Breast Imaging Interventions when appropriate. Th is patient will be placed in the appropriate reminder system. The [employer] (ACR) has developed recommendations for screening MRI of the breast s in certain patient populations, to be used in conjunction with mammography. Breast MRI surveillanc e may be appropriate for women with more than 20% lifetime risk of developing breast cancer as deter mined by genetic testing, significant family history of the disease, or history of mantle radiation f or Hodgkins Disease. ACR Practice Guidelines 2008. TECHNICAL DOCUMENTATION: FINDING NUMBER: (1) ASSESSMENT: (1) JOB ID: [id number] [employer]- All Rights Reserved Reading location - IP/workstation name: [facility]
--- NOTE | 2017-10-18 17:03 | WOMENS IMAGING REPORT ---
EXAM DESCRIPTION: BILAT DIAGNOSTIC MAMMO W/CAD; U/S BREAST UNILAT LIMITED COMPLETED DATE/TIME: 10/18/2017 10:43 am; 10/18/2017 11:29 am REASON FOR STUDY: RT BREAST LUMP N63.10; RT BREAST PALP; N63.10; LEFT BREAST N63.10 UNSPECIFIED LUM P IN THE RIGHT BREAST, UNSPECIFIED PAULO COMPARISON: None. TECHNIQUE: Standard craniocaudal and mediolateral oblique views of each breast recorded using digita l acquisition. Additional right breast 90 mediolateral and exaggerated craniocaudad views. Cone compression right upper outer quadrant in an area of palpable abnormality in the X CC and MLO orientations. Bilateral breast ultrasound was also performed. LIMITATIONS: None. FINDINGS: RIGHT BREAST MASSES: In the right breast laterally about 4 to 5 cm from the nipple, a 3 cm mammographic nodule is present with well-circumscribed margins and low density. This was shown to represent a breast parenc hymal cyst at ultrasound today. This correlates with the palpable marker for right breast lump. CALCIFICATIONS: No new or suspicious calcifications. ARCHITECTURAL DISTORTION: None. DEVELOPING DENSITY: None. ASYMMETRY: None noted. OTHER: No other significant findings. LEFT BREAST MASSES: In the medial left breast, 5 cm from the nipple a well-circumscribed low-density mammographic nodule is present measuring about 1 cm in size. This was subsequently shown to represent benign marco a ast cysts at ultrasound today. CALCIFICATIONS: No new or suspicious calcifications. ARCHITECTURAL DISTORTION: None. DEVELOPING DENSITY: None. ASYMMETRY: None noted. OTHER: No other significant finding. Read with the assistance of CAD: .[facility] - R2 Cenova Version 1.3 .[facility] Imaging - R2 Cenova Version 1.3 .[facility] Imaging - R2 Cenova Version 2.4 .[facility] - R2 Cenova Version 2.4 .[facility] - R2 Physical Therapy Professor Version 9.2 Bilateral breast ultrasound: Patient presented with right breast lump. In the area of palpable abnormality, right breast laterall y 9 o'clock position, a 3 x 2 cm simple cyst is present. A 7 mm adjacent simple cyst is also present . In the medial right retroareolar region a 6 mm cyst is present. On the left side, upper inner quadrant 9 to 10 o'clock position 5 cm from the nipple, a 1.3 x 0.7 cm simple cyst is present. This correlates with mammographic findings. There is an adjacent 3 to 4 mm benign breast cyst at ultrasound. IMPRESSION: No mammographic or sonographic evidence for malignancy bilaterally. BREAST DENSITY: c. The breasts are heterogeneously dense, which may obscure small masses. BIRAD: 2 Benign findings. RECOMMENDATION: RECOMMENDED FOLLOW UP: Please continue yearly bilateral screening mammography/ tomos ynthesis in September 2018 SPECIFIC INTERVENTION/IMAGING/CONSULTATION RECOMMENDED:No additional intervention/ imaging/consultati on needed at this time. COMMUNICATION:Patient notified by letter COMMENT: The patient has been notified of the results by letter per SA requirements. Additional no tification policies are in place for contacting patient with suspicious or incomplete findings. Quality ID #225: The [employer] recommends an annual screening mammogram for women aged 40 years or over. This facility utilizes a reminder system to ensure that all patients receive reminder letters, and/or direct phone calls for appointments. This includes reminders for routine scr eening mammograms, diagnostic mammograms, or other Breast Imaging Interventions when appropriate. Th is patient will be placed in the appropriate reminder system. The [employer] (ACR) has developed recommendations for screening MRI of the breast s in certain patient populations, to be used in conjunction with mammography. Breast MRI surveillanc e may be appropriate for women with more than 20% lifetime risk of developing breast cancer as deter mined by genetic testing, significant family history of the disease, or history of mantle radiation f or Hodgkins Disease. ACR Practice Guidelines 2008. TECHNICAL DOCUMENTATION: FINDING NUMBER: (1) ASSESSMENT: (1) JOB ID: [id number] [employer]- All Rights Reserved Reading location - IP/workstation name: [facility]
== END ==
LOC: WI 10:51
DX: N60.02 Solitary cyst of left breast (principal); N60.01 Solitary cyst of right breast
CPT/HCPCS: 76642; 77066

== ENCOUNTER 2018-01-23 13:05 | Emergency (ER) | payer MEDICAID, OTHER ==
[2018-01-23 13:10] VITALS: BP 142/87
[2018-01-23] MEDS ORDERED: METHYLPREDNISOLONE INJ 125 MG/2 ML SDV IV ONE (13:28)
[2018-01-23] MEDS ORDERED: IPRATROPIUM/ALBUTEROL 0.5-2.5 MG/3 ML AMPUL NEB ONE (13:28)
--- NOTE | 2018-01-23 14:02 | RADIOLOGY REPORT (SQ) ---
EXAM DESCRIPTION: CHEST 2 VIEWS COMPLETED DATE/TIME: 01/23/2018 1:53 pm REASON FOR STUDY: wheezing. COMPARISON: 08/04/2017 EXAM PARAMETERS: NUMBER OF VIEWS: two views TECHNIQUE: Digital Frontal and Lateral radiographic views of the chest acquired. RADIATION DOSE: NA LIMITATIONS: none FINDINGS: LUNGS AND PLEURA: No opacities, masses or pneumothorax. No pleural effusion. MEDIASTINUM AND HILAR STRUCTURES: No masses or contour abnormalities. HEART AND VASCULAR STRUCTURES: Heart normal size. No evidence for failure. BONES: No acute findings. HARDWARE: None in the chest. OTHER: No other significant finding. IMPRESSION: NO ACUTE RADIOGRAPHIC FINDING IN THE CHEST. TECHNICAL DOCUMENTATION: JOB ID: [id number] [employer]- All Rights Reserved Reading location - IP/workstation name: [email or web address]
[2018-01-23 14:40] LABS: ABSOLUTE BASOPHILS # (AUTO) 0.1 10^3/uL (0.0-0.2); ABSOLUTE EOSINOPHILS # (AUTO) 0.8 10^3/uL (0.0-0.6); ABSOLUTE MONOCYTES (AUTO) 0.5 10^3/uL (0.1-1.4); RED CELL DISTRIBUTION WIDTH 14.9 % (11.5-14.0); TOTAL CELLS COUNTED % (AUTO) 100 %
[2018-01-23 14:47] LABS: ABSOLUTE LYMPHOCYTES (AUTO) 1.9 10^3/uL (0.5-4.7); ABSOLUTE NEUT (AUTO) 3.3 10^3/uL (1.7-8.2); EOSINOPHILS % (AUTO) 12.4 % (0-6); HEMATOCRIT 37.2 % (36.0-47.0); HEMOGLOBIN 12.4 g/dL (12.0-15.5); MEAN CORPUSCULAR HEMOGLOBIN 29.8 pg (27.0-33.4); MEAN CORPUSCULAR HGB CONC 33.2 g/dL (32.0-36.0); MEAN CORPUSCULAR VOLUME 90 fl (80-97); PLATELET COUNT 161 10^3/uL (150-450); RED BLOOD COUNT 4.14 10^6/uL (3.72-5.28); SEGMENTED NEUTROPHILS % (AUTO) 50.6 % (42-78); WHITE BLOOD COUNT 6.4 10^3/uL (4.0-10.5)
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
== END 2018-01-23 16:33 | disposition home or self-care (01) ==
LOC: ER 13:05
DX: R06.02 Shortness of breath (principal); R05 Cough; R09.81 Nasal congestion; R11.10 Vomiting, unspecified; J45.909 Unspecified asthma, uncomplicated; I10 Essential (primary) hypertension
CPT/HCPCS: 94640; 99285; 96374; 36415; 85025; 71046; J2930; J7620

== ENCOUNTER 2018-02-19 10:49 | Emergency (ER) | payer OTHER ==
[2018-02-19] MEDS ORDERED: IPRATROPIUM/ALBUTEROL 0.5-2.5 MG/3 ML AMPUL NEB STA (11:23)
[2018-02-19] MEDS ORDERED: METHYLPREDNISOLONE INJ 125 MG/2 ML SDV IM STA (11:24)
--- NOTE | 2018-02-19 12:16 | RADIOLOGY REPORT (SQ) ---
EXAM DESCRIPTION: CHEST 2 VIEWS COMPLETED DATE/TIME: 02/19/2018 12:03 pm REASON FOR STUDY: Cough wheeze COMPARISON: 01/23/2018 EXAM PARAMETERS: NUMBER OF VIEWS: two views TECHNIQUE: Digital Frontal and Lateral radiographic views of the chest acquired. RADIATION DOSE: NA LIMITATIONS: none FINDINGS: LUNGS AND PLEURA: No opacities, masses or pneumothorax. No pleural effusion. MEDIASTINUM AND HILAR STRUCTURES: No masses or contour abnormalities. HEART AND VASCULAR STRUCTURES: Heart normal size. No evidence for failure. BONES: No acute findings. HARDWARE: None in the chest. OTHER: No other significant finding. IMPRESSION: No acute abnormality of the lungs. No focal airspace opacity to explain cough. TECHNICAL DOCUMENTATION: JOB ID: [id number] [employer]- All Rights Reserved Reading location - IP/workstation name: [email or web address]
--- NOTE | 2018-02-19 12:24 | ER Document Report ---
ED Respiratory Problem - General Chief Complaint: Cold Symptoms Stated Complaint: FLU SYMPTOMS Time Seen by Provider: 02/19/18 11:05 Mode of Arrival: Ambulatory Information source: Patient Notes: Patient is a 42-year-old female who comes to emergency room complaining of cough wheezing congestion runny nose. Patient states that is been going on for at least the past week. Worse the past 2 days. She has a productive cough that is sometimes yellow to clear. But it is thick. Patient has a history of severe asthma and she has a nebulizer machine. She does state that the machine is not working but she has used her inhaler without much success. She denies any history of smoking. She believes she had a fever on this past Sunday but it only lasted for the day. She only has a comorbidity of hypertension and obesity. Last menstrual period was 1 week ago but she had a tubal ligation. TRAVEL OUTSIDE OF THE [place] IN LAST 30 DAYS: No - HPI Patient complains to provider of: Asthma Onset: Last week Duration: Worse/persistent Initiating Event: URI Quality of pain: Achy Severity: Mild Pain Level: 2 Context: denies: DVT, Hx COPD, , Recent long distance trvl, Recent surgery, Smoker Short of Breath: Moderate Chest pain/discomfort: Worse with deep breaths Cough: Productive Sputum amount: Moderate Sputum color: Clear, Yellow Sputum consistency: Thick At home treatment: Bronchodilators Associated symptoms: Chills, Congestion, Cough, Earache, PND, Runny nose, Sinus pain/pressure, Wheezing Worsened by: Exertion Similar symptoms previously: Yes Recently seen / treated by doctor: No - Related Data Allergies/Adverse Reactions: amoxicillin [Amoxicillin] Allergy (Verified 02/19/18 10:50) ketorolac [Ketorolac] Allergy (Verified 02/19/18 10:50) Past Medical History - General Information source: Patient - Social History Smoking Status: Never Smoker Cigarette use (# per day): No Chew tobacco use (# tins/day): No Smoking Education Provided: No Frequency of alcohol use: None Drug Abuse: None Family History: Reviewed & Not Pertinent, Arthritis, CVA, Hyperlipidemia, Hypertension, Malignancy, Thyroid Disfunction. denies: CAD, COPD, DM Patient has suicidal ideation: No Patient has homicidal ideation: No - Past Medical History Cardiac Medical History: Reports: Hx Hypertension Pulmonary Medical History: Reports: Hx Asthma Neurological Medical History: Reports: Hx Migraine Renal/ Medical History: Denies: Hx Peritoneal Dialysis Psychiatric Medical History: Reports: Hx Depression Past Surgical History: Reports: Hx Oral Surgery - dental, Hx Tonsillectomy - 1987, Hx Tubal Ligation - Immunizations Immunizations up to date: Yes Hx Diphtheria, Pertussis, Tetanus Vaccination: Yes Review of Systems - Review of Systems Constitutional: Chills, Fever, Weakness EENT: Nose congestion, Nose discharge, Sinus pressure Cardiovascular: No symptoms reported Respiratory: See HPI, Cough, Hurts to breathe, Short of breath, Sputum, Wheezing Gastrointestinal: No symptoms reported Genitourinary: No symptoms reported Female Genitourinary: No symptoms reported Musculoskeletal: No symptoms reported Skin: No symptoms reported Hematologic/Lymphatic: No symptoms reported Neurological/Psychological: No symptoms reported -: Yes All other systems reviewed and negative Physical Exam - Vital signs Vitals: Temp Pulse Resp BP Pulse Ox 98.2 F 88 18 137/85 H 96 02/19/18 10:54 02/19/18 10:54 02/19/18 10:54 02/19/18 10:54 02/19/18 10:54 Interpretation: Hypertensive - Notes Notes: PHYSICAL EXAMINATION: GENERAL: Patient is a well-nourished well-developed obese female who is in no apparent distress on physical exam today. She does appear somewhat uncomfortable and she has audible wheezing without stethoscope. She is not tachypneic she is not using accessory muscles. HEAD: Atraumatic, normocephalic. EYES: Pupils equal round and reactive to light, extraocular movements intact, conjunctiva are normal. ENT: examination head and upper airway showed nasal mucosa to be moderately erythematous and edematous with some rhinorrhea yellowish in color. She displays congestion bilateral nares as well. She has some mild frontal sinus tenderness to palpation but not maxillary. Examination of the ears shows mild cerumen in the lower canals of the external canal but does not obstruct the view of the TM. TMs are bulging bilaterally but no fluid levels noted. Further examination of the oral cavity shows posterior pharynx to be moderately erythematous with some drainage in the posterior pharynx is yellow-green. He also appears to be thick. Bilateral tonsillar enlargement without exudate uvula is midline with erythema but no encroachment of the uvula. Airway is patent. NECK: Normal range of motion, supple without lymphadenopathy LUNGS: Auscultation patient's lung adams show she has bilateral breath sounds which are decreased throughout both lungs. She has noted inspiratory and expiratory wheezes are audible without stethoscope both stethoscope he can hear some faint rhonchi scattered throughout. She seems to clear somewhat with a cough that is nonproductive at this time. HEART: Regular rate and rhythm without murmurs Female : deferred Musculoskeletal: Normal range of motion, no pitting or edema. No cyanosis. NEUROLOGICAL Normal speech, normal gait. Normal sensory, motor exams PSYCH: Normal mood, normal affect. SKIN: Warm, Dry, normal turgor, no rashes or lesions noted. Course - Re-evaluation Re-evalutation: 02/19/18 13:10 Patient received a double nebulizer treatment in here and [facility] and stayed for extended time I went back to recheck on her multiple times in the last time I went back in she has progressed to the point of having no wheezing is feeling 100 times better per her. Re-auscultation of patient's lung adams show that she is moving more air there is no wheeze and no rhonchi heard. She is more color into her face and not nears pale. She is going to go home on a steroid taper some Chlor-Trimeton and she will continue with her neb treatments at home now that we have fixed her machine and at this point does not need any antibiotics. - Vital Signs Vital signs: Temp Pulse Resp BP Pulse Ox 98.4 F 85 16 135/88 H 97 02/19/18 12:52 02/19/18 12:52 02/19/18 12:52 02/19/18 12:52 02/19/18 12:52 Discharge - Discharge Clinical Impression: Asthma Qualifiers: Asthma severity: moderate Asthma persistence: persistent Asthma complication type: with acute exacerbation Qualified Code(s): J45.41 - Moderate persistent asthma with (acute) exacerbation Sinusitis Qualifiers: Sinusitis location: unspecified location Chronicity: acute Recurrence: non- recurrent Qualified Code(s): J01.90 - Acute sinusitis, unspecified Condition: Stable Disposition: HOME, SELF-CARE Instructions: Asthma ([facility]), Sinusitis ([facility]) Additional Instructions: Home today and rest. Medication as prescribed. Continue your nebulizer treatments every 4-6 hours. You do not have to wake up in the middle the night just to take a treatment. at this point I do not need an antibiotic however should you start running fevers or get more short of breath return to ER for recheck. Prescriptions: Chlorpheniramine Maleate [Chlor-Trimeton 4 mg Tablet] 1 tab PO Q4 PRN #1 pkg PRN Reason: Prednisone 10 mg PO ASDIR PRN 6 Days #1 tab.ds.pk PRN Reason: Forms: Elevated Blood Pressure, Return to Work Referrals: [facility] [NO [facility]AL MD] - Follow up as needed
[2018-02-19 12:53] VITALS: BP 135/88
== END 2018-02-19 13:20 | disposition home or self-care (01) ==
LOC: ER 10:49
DX: J45.41 Moderate persistent asthma with (acute) exacerbation (principal); J01.90 Acute sinusitis, unspecified; I10 Essential (primary) hypertension; Z98.51 Tubal ligation status; Z88.0 Allergy status to penicillin
CPT/HCPCS: 94640; 99283; 96372; 71046; J2930; J7620

== ENCOUNTER 2018-03-15 14:28 | Emergency (ER) | payer MEDICAID, OTHER ==
[2018-03-15] MEDS ORDERED: IPRATROPIUM/ALBUTEROL 0.5-2.5 MG/3 ML AMPUL NEB ONE (15:27)
[2018-03-15] MEDS ORDERED: METHYLPREDNISOLONE INJ 125 MG/2 ML SDV IV ONE (15:27)
[2018-03-15] MEDS ORDERED: NORMAL SALINE 1000 ML 1,000 ML IV ONE (15:28)
--- NOTE | 2018-03-15 15:28 | ER Document Report ---
ED Medical Screen (RME) - General Chief Complaint: Breathing Difficulty Stated Complaint: HEADACHE,DIFFICULTY BREATHING Time Seen by Provider: 03/15/18 15:22 Notes: 42 years old female with a history of asthma not taking any medications for the last few days resents with exacerbation of asthma with wheezing. Had some temperature yesterday. Bilateral diffuse expiratory wheezing TRAVEL OUTSIDE OF THE [place] IN LAST 30 DAYS: No - Related Data Allergies/Adverse Reactions: amoxicillin [Amoxicillin] Allergy (Verified 03/15/18 14:29) ketorolac [Ketorolac] Allergy (Verified 03/15/18 14:29) Past Medical History - Social History Frequency of alcohol use: None Drug Abuse: None - Past Medical History Cardiac Medical History: Reports: Hx Hypertension Pulmonary Medical History: Reports: Hx Asthma Neurological Medical History: Reports: Hx Migraine Renal/ Medical History: Denies: Hx Peritoneal Dialysis Psychiatric Medical History: Reports: Hx Depression Past Surgical History: Reports: Hx Oral Surgery - dental, Hx Tonsillectomy - 1987, Hx Tubal Ligation - Immunizations Immunizations up to date: Yes Hx Diphtheria, Pertussis, Tetanus Vaccination: Yes Physical Exam - Vital signs Vitals: Temp Pulse Resp BP Pulse Ox 98.4 F 109 H 16 143/91 H 94 03/15/18 14:33 03/15/18 14:33 03/15/18 14:33 03/15/18 14:33 03/15/18 14:33 Course - Vital Signs Vital signs: Temp Pulse Resp BP Pulse Ox 98.4 F 109 H 16 143/91 H 94 03/15/18 14:33 03/15/18 14:33 03/15/18 14:33 03/15/18 14:33 03/15/18 14:33
--- NOTE | 2018-03-15 15:54 | RADIOLOGY REPORT (SQ) ---
EXAM DESCRIPTION: CHEST SINGLE VIEW COMPLETED DATE/TIME: 03/15/2018 3:40 pm REASON FOR STUDY: Coughing, wheezing COMPARISON: 02/19/2018, 01/23/2018 EXAM PARAMETERS: NUMBER OF VIEWS: One view. TECHNIQUE: Single frontal radiographic view of the chest acquired. RADIATION DOSE: NA LIMITATIONS: None. FINDINGS: LUNGS AND PLEURA: No opacities, masses or pneumothorax. No pleural effusion. MEDIASTINUM AND HILAR STRUCTURES: No masses. Contour normal. HEART AND VASCULAR STRUCTURES: Heart normal in size. Normal vasculature. BONES: No acute findings. HARDWARE: None in the chest. OTHER: No other significant finding. IMPRESSION: NO ACUTE RADIOGRAPHIC FINDING IN THE CHEST. TECHNICAL DOCUMENTATION: JOB ID: [id number] [employer]- All Rights Reserved Reading location - IP/workstation name: [email or web address]
[2018-03-15] MEDS: ALBUTEROL SULFATE 0.083% NEB 2.5 MG/3 ML AMPUL NEB SCH ×2 (16:09→16:24)
[2018-03-15] MEDS: MAGNESIUM SULFATE/D5W 1 GM/100 ML RTUPB IV SCH ×2 (16:25→17:30)
[2018-03-15] MEDS ORDERED: PREDNISONE 20 MG TABLET PO ONE (17:13)
[2018-03-15] MEDS ORDERED: ALBUTEROL SULFATE HFA (90 MCG/PUFF) 8 GM MDI (1 MDI/ER DISP) IH ONE (17:13)
[2018-03-15] MEDS ORDERED: CLINDAMYCIN HCL 150 MG CAPSULE PO ONE (17:14)
[2018-03-15] MEDS ORDERED: ACETAMINOPHEN 325 MG TABLET PO ONE (17:14)
[2018-03-15] MEDS ORDERED: ALBUTEROL SULFATE 0.083% NEB 2.5 MG/3 ML AMPUL NEB ONE (17:14)
--- NOTE | 2018-03-15 18:11 | ER Document Report ---
ED General - General Chief Complaint: Breathing Difficulty Stated Complaint: HEADACHE,DIFFICULTY BREATHING Time Seen by Provider: 03/15/18 15:22 TRAVEL OUTSIDE OF THE [place] IN LAST 30 DAYS: No - HPI Patient complains to provider of: Shortness of breath dental pain feeling unwell Notes: Patient coming in the stated above. Patient states upper tooth #15 had a history of previous fractures and states that more tooth broke off today having increased pain states she called [facility] and has an appointment on Sunday. Patient denies any fevers chills difficulty in chewing or swallowing. Patient also states shortness of breath history of asthma states recently ran out of her rescue inhaler. Patient denies any recent steroids. Patient denies any recent antibiotics. Patient is receiving a breathing treatment and magnesium upon my evaluation with no obvious distress. Denies any recent travel. Patient otherwise states that he generalized feeling of feeling unwell - Related Data Allergies/Adverse Reactions: amoxicillin [Amoxicillin] Allergy (Verified 03/15/18 14:29) ketorolac [Ketorolac] Allergy (Verified 03/15/18 14:29) Past Medical History - Social History Smoking Status: Never Smoker Frequency of alcohol use: None Drug Abuse: None Family History: Reviewed & Not Pertinent, Arthritis, CVA, Hyperlipidemia, Hypertension, Malignancy, Thyroid Disfunction. denies: CAD, COPD, DM Patient has suicidal ideation: No Patient has homicidal ideation: No - Past Medical History Cardiac Medical History: Reports: Hx Hypertension Pulmonary Medical History: Reports: Hx Asthma Neurological Medical History: Reports: Hx Migraine Renal/ Medical History: Denies: Hx Peritoneal Dialysis Psychiatric Medical History: Reports: Hx Depression Past Surgical History: Reports: Hx Oral Surgery - dental, Hx Tonsillectomy - 1987, Hx Tubal Ligation - Immunizations Immunizations up to date: Yes Hx Diphtheria, Pertussis, Tetanus Vaccination: Yes Review of Systems - Review of Systems Constitutional: No symptoms reported EENT: Dental problem Cardiovascular: No symptoms reported Respiratory: Wheezing Gastrointestinal: No symptoms reported Genitourinary: No symptoms reported Female Genitourinary: No symptoms reported Musculoskeletal: No symptoms reported Skin: No symptoms reported Hematologic/Lymphatic: No symptoms reported Neurological/Psychological: No symptoms reported Physical Exam - Vital signs Vitals: Temp Pulse Resp BP Pulse Ox 98.4 F 109 H 16 143/91 H 94 03/15/18 14:33 03/15/18 14:33 03/15/18 14:33 03/15/18 14:33 03/15/18 14:33 Interpretation: Normal - General General appearance: Appears well, Alert - HEENT Head: Normocephalic, Atraumatic Eyes: Normal Conjunctiva: Normal Cornea: Normal Pupils: PERRL Notes: Large dental cavity tooth #15 no signs of gingival cellulitis or abscess formation tender to percussion - Respiratory Respiratory status: No respiratory distress Chest status: Nontender Breath sounds: Normal Chest palpation: Normal - Cardiovascular Rhythm: Regular Heart sounds: Normal auscultation Murmur: No - Abdominal Inspection: Normal Distension: No distension Bowel sounds: Normal Tenderness: Nontender Organomegaly: No organomegaly - Back Back: Normal, Nontender - Extremities General upper extremity: Normal inspection, Nontender, Normal color, Normal ROM , Normal temperature General lower extremity: Normal inspection, Nontender, Normal color, Normal ROM , Normal temperature, Normal weight bearing. No: Viki's sign - Neurological Neuro grossly intact: Yes Cognition: Normal Orientation: AAOx4 Prince Coma Scale Eye Opening: Spontaneous Prince Coma Scale Verbal: Oriented Prince Coma Scale Motor: Obeys Commands Johnson Coma Scale Total: 15 Speech: Normal Motor strength normal: LUE, RUE, LLE, RLE Sensory: Normal - Psychological Associated symptoms: Normal affect, Normal mood - Skin Skin Temperature: Warm Skin Moisture: Dry Skin Color: Normal Course - Re-evaluation Re-evalutation: 03/15/18 21:44 Patient declined inferior alveolar dental block was performed using 0.5% Sensorcaine with epi. 25-gauge needle was inserted and the posterior gumline with no aspiration of blood instilled 2.5 cc of Marcaine good analgesia performed patient tolerated well recommended because of the large defect in the tooth to go ahead and prophylactically start the patient on clindamycin 2 she can follow-up with a dentist to hopefully prevent infection. Patient was also instructed to brush her teeth and rinse her mouth out after every meal. Patient is breathing improved with neb laser treatment steroids and magnesium here. No signs of any critical pathology patient was discharged home follow-up with primary care physician. - Vital Signs Vital signs: Temp Pulse Resp BP Pulse Ox 98.6 F 89 15 138/88 H 98 03/15/18 18:33 03/15/18 18:33 03/15/18 18:33 03/15/18 18:33 03/15/18 18:33 Discharge - Discharge Clinical Impression: Dental caries Asthma Qualifiers: Asthma severity: unspecified severity Asthma persistence: unspecified Asthma complication type: unspecified Qualified Code(s): J45.909 - Unspecified asthma, uncomplicated Condition: Good Disposition: HOME, SELF-CARE Instructions: Anti-Inflammatory Medication ([facility]), Asthma ([facility]), Dentist, Dental Infection or Abscess ([facility]), Dental Injury ([facility]) Additional Instructions: Please continue to take the clindamycin until you can follow-up with your dentist. Please use the inhaler that I gave you here in ER 2+ every 4 hours or use a nebulizer treatment. Please continue with steroids as prescribed. Follow-up with your primary care physician. He may take Tylenol and Motrin for your pain control. Prescriptions: Ibuprofen [Motrin 600 mg Tablet] 600 mg PO Q8HP PRN #21 tablet PRN Reason: Albuterol Sulfate [Ventolin 0.083% Neb 2.5 mg/3 mL Ampul] 1 vial NEB Q4 #30 vial Clindamycin HCl [Cleocin 150 mg Capsule] 150 mg PO Q6 #28 capsule Prednisone [Deltasone 20 mg Tablet] 3 tab PO DAILY 5 Days tablet
[2018-03-15 18:35] VITALS: BP 138/88
== END 2018-03-15 18:34 | disposition home or self-care (01) ==
LOC: ER 14:28
DX: K02.9 Dental caries, unspecified (principal); J45.909 Unspecified asthma, uncomplicated; R51 Headache; I10 Essential (primary) hypertension; Z98.51 Tubal ligation status
CPT/HCPCS: 94640 ×2; 99285; 96375; 96365; 96366; 71045; 64400; J2930; J3475; J7512; J7030; J3490; J7620

== ENCOUNTER 2018-03-26 20:45 | Emergency (ER) | payer OTHER ==
[2018-03-26] MEDS ORDERED: IPRATROPIUM/ALBUTEROL 0.5-2.5 MG/3 ML AMPUL NEB ONE (21:31)
[2018-03-26] MEDS ORDERED: METHYLPREDNISOLONE INJ 125 MG/2 ML SDV IV ONE (21:32)
--- NOTE | 2018-03-26 21:35 | ER Document Report ---
ED Medical Screen (RME) - General Chief Complaint: Shortness Of Breath Stated Complaint: SHORT OF BREATH,COUGH,DIZZINESS Time Seen by Provider: 03/26/18 21:31 Mode of Arrival: Ambulatory Information source: Patient Notes: Patient is a 42-year-old female with past medical history of hypertension and asthma who presents today with difficulty breathing and shortness of breath. Patient reports that she has run out of her asthma medications. She states she has been having increased coughing, dizziness, nausea and shortness of breath. She reports fevers intermittently. She states the shortness of breath has been ongoing for several days now. Patient upgraded to DEBBY to due to patient's status. Exam: Inspiratory and expiratory wheezing noted bilaterally Patient tachypneic with increased work of breathing I have greeted and performed a rapid initial assessment of this patient. A comprehensive ED assessment and evaluation of the patient, analysis of test results and completion of the medical decision making process will be conducted by additional ED providers. Dictation of this chart was performed using voice recognition software; therefore, there may be some unintended grammatical errors. TRAVEL OUTSIDE OF THE [place] IN LAST 30 DAYS: No - Related Data Allergies/Adverse Reactions: amoxicillin [Amoxicillin] Allergy (Verified 03/15/18 14:29) ketorolac [Ketorolac] Allergy (Verified 03/15/18 14:29) Past Medical History - Past Medical History Cardiac Medical History: Reports: Hx Hypertension Pulmonary Medical History: Reports: Hx Asthma Neurological Medical History: Reports: Hx Migraine Renal/ Medical History: Denies: Hx Peritoneal Dialysis Psychiatric Medical History: Reports: Hx Depression Past Surgical History: Reports: Hx Oral Surgery - dental, Hx Tonsillectomy - 1987, Hx Tubal Ligation - Immunizations Immunizations up to date: Yes Hx Diphtheria, Pertussis, Tetanus Vaccination: Yes Physical Exam - Vital signs Vitals: Temp Pulse Resp BP Pulse Ox 97.3 F 103 H 22 H 148/69 H 94 03/26/18 20:52 03/26/18 20:52 03/26/18 20:52 03/26/18 20:52 03/26/18 20:52 Course - Vital Signs Vital signs: Temp Pulse Resp BP Pulse Ox 97.3 F 103 H 22 H 148/69 H 94 03/26/18 20:52 03/26/18 20:52 03/26/18 20:52 03/26/18 20:52 03/26/18 20:52
[2018-03-26] MEDS: MAGNESIUM SULFATE/D5W 1 GM/100 ML RTUPB IV SCH ×2 (22:04→22:32)
--- NOTE | 2018-03-26 22:17 | RADIOLOGY REPORT (SQ) ---
EXAM DESCRIPTION: XR CHEST 1 VIEW COMPLETED DATE/TME: 03/26/2018 21:33 CLINICAL HISTORY: 42 years, Female, sob, wheezing, intermittent fever COMPARISON: 03/15/2018 chest NUMBER OF VIEWS: 1 TECHNIQUE: Portable chest LIMITATIONS: None. FINDINGS: Heart size is normal. Lungs are clear. No pneumothorax IMPRESSION: Negative chest copyright 2010 [employer]- All Rights Reserved
[2018-03-26] MEDS ORDERED: ALBUTEROL SULFATE 0.083% NEB 2.5 MG/3 ML AMPUL NEB ONE (22:35)
[2018-03-27] MEDS ORDERED: ALBUTEROL SULFATE HFA (90 MCG/PUFF) 8 GM MDI (1 MDI/ER DISP) IH ONE (00:02)
--- NOTE | 2018-03-27 00:06 | ER Document Report ---
ED General - General Chief Complaint: Shortness Of Breath Stated Complaint: SHORT OF BREATH,COUGH,DIZZINESS Time Seen by Provider: 03/26/18 21:31 Mode of Arrival: Ambulatory TRAVEL OUTSIDE OF THE [place] IN LAST 30 DAYS: No - HPI Patient complains to provider of: Shortness of breath Notes: Patient coming in for shortness of breath. Patient is ongoing for the last few days that she left her nebulizer machine at a friend's house. Patient denies any nausea vomiting chest pain abdominal pain upon my evaluation patient has received a breathing treatment still has some slight wheezing. Patient denies any recent antibiotics. Upon my evaluation patient looks to be in no obvious distress. - Related Data Allergies/Adverse Reactions: amoxicillin [Amoxicillin] Allergy (Verified 03/15/18 14:29) ketorolac [Ketorolac] Allergy (Verified 03/15/18 14:29) Past Medical History - General Information source: Patient - Social History Smoking Status: Never Smoker Chew tobacco use (# tins/day): No Drug Abuse: None Family History: Reviewed & Not Pertinent, Arthritis, CVA, Hyperlipidemia, Hypertension, Malignancy, Thyroid Disfunction. denies: CAD, COPD, DM Patient has suicidal ideation: No Patient has homicidal ideation: No - Past Medical History Cardiac Medical History: Reports: Hx Hypertension Pulmonary Medical History: Reports: Hx Asthma Neurological Medical History: Reports: Hx Migraine Renal/ Medical History: Denies: Hx Peritoneal Dialysis Psychiatric Medical History: Reports: Hx Depression Past Surgical History: Reports: Hx Oral Surgery - dental, Hx Tonsillectomy - 1987, Hx Tubal Ligation - Immunizations Immunizations up to date: Yes Hx Diphtheria, Pertussis, Tetanus Vaccination: Yes Review of Systems - Review of Systems Constitutional: No symptoms reported EENT: No symptoms reported Cardiovascular: No symptoms reported Respiratory: Short of breath Gastrointestinal: No symptoms reported Genitourinary: No symptoms reported Female Genitourinary: No symptoms reported Musculoskeletal: No symptoms reported Skin: No symptoms reported Hematologic/Lymphatic: No symptoms reported Neurological/Psychological: No symptoms reported -: Yes All other systems reviewed and negative Physical Exam - Vital signs Vitals: Temp Pulse Resp BP Pulse Ox 97.3 F 103 H 22 H 148/69 H 94 03/26/18 20:52 03/26/18 20:52 03/26/18 20:52 03/26/18 20:52 03/26/18 20:52 Interpretation: Normal - General General appearance: Appears well, Alert - HEENT Head: Normocephalic, Atraumatic Eyes: Normal Pupils: PERRL - Respiratory Respiratory status: No respiratory distress Chest status: Nontender Breath sounds: Rhonchi, Wheezing Chest palpation: Normal - Cardiovascular Rhythm: Regular Heart sounds: Normal auscultation Murmur: No - Abdominal Inspection: Normal Distension: No distension Bowel sounds: Normal Tenderness: Nontender Organomegaly: No organomegaly - Back Back: Normal, Nontender - Extremities General upper extremity: Normal inspection, Nontender, Normal color, Normal ROM, Normal temperature General lower extremity: Normal inspection, Nontender, Normal color, Normal ROM, Normal temperature, Normal weight bearing. No: Viki's sign - Neurological Neuro grossly intact: Yes Cognition: Normal Orientation: AAOx4 [place] Coma Scale Eye Opening: Spontaneous [place] Coma Scale Verbal: Oriented [place] Coma Scale Motor: Obeys Commands [place] Coma Scale Total: 15 Speech: Normal Motor strength normal: LUE, RUE, LLE, RLE Sensory: Normal - Psychological Associated symptoms: Normal affect, Normal mood - Skin Skin Temperature: Warm Skin Moisture: Dry Skin Color: Normal Course - Re-evaluation Re-evalutation: 03/27/18 03:13 Patient states feeling much better after breathing treatments and magnesium. Chest x-ray is otherwise negative. No other signs of critical pathology seen on patient's evaluation. Patient will be discharged home patient was encouraged to obtain her nebulizer patient was given an albuterol inhaler here in ER. - Vital Signs Vital signs: Temp Pulse Resp BP Pulse Ox 97.3 F 103 H 22 H 148/69 H 94 03/26/18 20:52 03/26/18 20:52 03/26/18 20:52 03/26/18 20:52 03/26/18 20:52 Discharge - Discharge Clinical Impression: Asthma exacerbation Qualifiers: Asthma severity: unspecified severity Asthma persistence: unspecified Qualified Code(s): J45.901 - Unspecified asthma with (acute) exacerbation Disposition: HOME, SELF-CARE Instructions: Asthma ([facility]) Additional Instructions: Follow-up with your primary care physician. Please use your nebulizer and inhalers at home as previously prescribed at least taking 2 puffs or 1 treatment every 4 hours return to the ER symptoms worsen. Referrals: JAMA BOOKER MD [Primary Care Provider] - Follow up as needed
[2018-03-27 00:19] VITALS: BP 123/74
== END 2018-03-27 00:18 | disposition home or self-care (01) ==
LOC: ER 20:45
DX: J45.901 Unspecified asthma with (acute) exacerbation (principal); R42 Dizziness and giddiness; I10 Essential (primary) hypertension; Z88.0 Allergy status to penicillin; Z98.51 Tubal ligation status
CPT/HCPCS: 94640 ×2; 99285; 96375; 96365; 71045; J2930; J3475; J3490; J7620

== ENCOUNTER → 2018-06-28 | Outpatient (CLI) | payer OTHER ==
--- NOTE | 2018-06-28 12:43 | RADIOLOGY REPORT (SQ) ---
EXAM DESCRIPTION: SHOULDER RIGHT 2 OR MORE VIEWS COMPLETED DATE/TIME: 06/28/2018 12:05 pm REASON FOR STUDY: SHOULDER PAIN M25.519 PAIN IN UNSPECIFIED SHOULDER COMPARISON: 07/01/2015 NUMBER OF VIEWS: Three views. TECHNIQUE: Internal rotation, external rotation, and Y view images acquired of the right shoulder. LIMITATIONS: None. FINDINGS: MINERALIZATION: Normal. BONES: No acute fracture or dislocation. No worrisome bone lesions. JOINTS: There are degenerative changes in the glenohumeral joint with joint space narrowing and small osteophytes inferiorly. VISUALIZED LUNGS AND RIBS: No pneumothorax. No rib fracture. SOFT TISSUES: No radiopaque foreign body. OTHER: No other significant finding. IMPRESSION: Degenerative changes. No acute findings. TECHNICAL DOCUMENTATION: JOB ID: [id number] [employer]- All Rights Reserved Reading location - IP/workstation name: [email or web address]
== END ==
LOC: CCC 11:54
DX: M25.511 Pain in right shoulder (principal); M19.011 Primary osteoarthritis, right shoulder

== ENCOUNTER 2019-01-01 20:05 | Emergency (ER) | payer MEDICAID, OTHER ==
[2019-01-01] MEDS ORDERED: ONDANSETRON 4 MG TAB.RAPDIS PO ONE (20:34)
--- NOTE | 2019-01-01 20:34 | ER Document Report ---
ED Medical Screen (RME) - General Chief Complaint: Pain All Over Stated Complaint: VOMITING,BODY ACHES Time Seen by Provider: 01/01/19 20:33 [facility]: [facility] [[facility] Provider] - Follow up as needed Mode of Arrival: Ambulatory Information source: Patient Notes: 33-year-old female presented to ED for complaint of body aches all over nausea vomiting and coughing. She states she is vomited 3 times today. She is alert oriented respirations regular and unlabored speaking in full sentences. She states she does have asthma and is been coughing so hard she cannot stop all day today. She does not smoke drinks on the weekends and works at [employer]. She states she lives with her children. And she states she is on her menstrual cycle right now. I have greeted and performed a rapid initial assessment of this patient. A comprehensive ED assessment and evaluation of the patient, analysis of test results and completion of medical decision making process will be conducted by an additional ED providers. TRAVEL OUTSIDE OF THE [place] IN LAST 30 DAYS: No - Related Data Allergies/Adverse Reactions: amoxicillin [Amoxicillin] Allergy (Verified 07/27/18 21:42) ketorolac [Ketorolac] Allergy (Verified 07/27/18 21:42) Past Medical History - Past Medical History Cardiac Medical History: Reports: Hx Hypertension Pulmonary Medical History: Reports: Hx Asthma Neurological Medical History: Reports: Hx Migraine Renal/ Medical History: Denies: Hx Peritoneal Dialysis Psychiatric Medical History: Reports: Hx Depression Past Surgical History: Reports: Hx Oral Surgery - dental, Hx Tonsillectomy - 1987, Hx Tubal Ligation - Immunizations Immunizations up to date: Yes Hx Diphtheria, Pertussis, Tetanus Vaccination: Yes Physical Exam - Vital signs Vitals: Temp Pulse Resp BP Pulse Ox 98.1 F 96 20 131/77 H 98 01/01/19 20:12 01/01/19 20:12 01/01/19 20:12 01/01/19 20:12 01/01/19 20:12 Course - Vital Signs Vital signs: Temp Pulse Resp BP Pulse Ox 98.1 F 96 20 131/77 H 98 01/01/19 20:12 01/01/19 20:12 01/01/19 20:12 01/01/19 20:12 01/01/19 20:12 Doctor's Discharge - Discharge Referrals: [facility] [Primary Care Provider] - Follow up as needed
[2019-01-01] MEDS: ALBUTEROL SULFATE 0.083% NEB 2.5 MG/3 ML AMPUL NEB SCH ×2 (20:37→21:12)
--- NOTE | 2019-01-01 21:31 | RADIOLOGY REPORT (SQ) ---
EXAM DESCRIPTION: CLINICAL HISTORY: 43 years Female, cough COMPARISON: 07/28/2018. FINDINGS: Cardiomediastinal silhouette is not enlarged. No acute lung or pleural abnormalities. Previously visualized left lower lobe infiltrate or atelectasis appears resolved. IMPRESSION: No acute findings.
[2019-01-02 00:05] LABS: ABSOLUTE BASOPHILS # (AUTO) 0.1 10^3/uL (0.0-0.2); ABSOLUTE EOSINOPHILS # (AUTO) 0.6 10^3/uL (0.0-0.6); ABSOLUTE LYMPHOCYTES (AUTO) 1.9 10^3/uL (0.5-4.7); ABSOLUTE MONOCYTES (AUTO) 0.4 10^3/uL (0.1-1.4); ABSOLUTE NEUT (AUTO) 4.5 10^3/uL (1.7-8.2); EOSINOPHILS % (AUTO) 7.8 % (0-6); HEMATOCRIT 38.7 % (36.0-47.0); HEMOGLOBIN 12.7 g/dL (12.0-15.5); LYMPHOCYTES % (AUTO) 25.6 % (13-45); MEAN CORPUSCULAR HGB CONC 32.8 g/dL (32.0-36.0); MEAN CORPUSCULAR VOLUME 92 fl (80-97); MONOCYTES % (AUTO) 5.3 % (3-13); PLATELET COUNT 138 10^3/uL (150-450); RED BLOOD COUNT 4.23 10^6/uL (3.72-5.28); RED CELL DISTRIBUTION WIDTH 14.5 % (11.5-14.0); SEGMENTED NEUTROPHILS % (AUTO) 60.3 % (42-78); TOTAL CELLS COUNTED % (AUTO) 100 %; WHITE BLOOD COUNT 7.4 10^3/uL (4.0-10.5)
[2019-01-02 00:22] LABS: ALBUMIN 4.2 g/dL (3.5-5.0); ALKALINE PHOSPHATASE 50 U/L (38-126); ANION GAP 10 (5-19); ASPARTATE AMINO TRANSFERASE 22 U/L (14-36); BILIRUBIN,DIRECT 0.1 mg/dL (0.0-0.4); BILIRUBIN,TOTAL 0.5 mg/dL (0.2-1.3); BLOOD UREA NITROGEN 16 mg/dL (7-20); CARBON DIOXIDE 27 mmol/L (22-30); CHLORIDE 102 mmol/L (98-107); GLUCOSE 89 mg/dL (75-110); POTASSIUM 3.4 mmol/L (3.6-5.0); TOTAL PROTEIN 7.4 g/dL (6.3-8.2)
[2019-01-02 00:25] LABS: ANISOCYTOSIS SLIGHT; PLATELET COMMENT ADEQUATE; PLATELET GIANT PRESENT; PLATELET LARGE PRESENT
[2019-01-02] MEDS ORDERED: HYDROCODONE/ACETAMINOPHEN 5-325 MG TABLET PO ONE (00:54)
[2019-01-02] MEDS ORDERED: LEVOFLOXACIN 750 MG TABLET PO ONE (00:54)
--- NOTE | 2019-01-02 00:54 | ER Document Report ---
ED General - General Chief Complaint: Pain All Over Stated Complaint: VOMITING,BODY ACHES Time Seen by Provider: 01/01/19 20:33 Primary Care Provider: [facility] [Primary Care Provider] - Follow up as needed Mode of Arrival: Ambulatory TRAVEL OUTSIDE OF THE [place] IN LAST 30 DAYS: No - HPI Notes: Patient presents with diffuse body aches. She states it is an aching sensation. Is moderate. Is constant. Is worse with movement and better with rest. Is been going on for approximate 2 days. She is also had shortness of breath as well as a constant dry cough. No significant rashes. No vomiting or diarrhea. She states other than a history of asthma she has no significant past medical history. - Related Data Allergies/Adverse Reactions: amoxicillin [Amoxicillin] Allergy (Verified 07/27/18 21:42) ketorolac [Ketorolac] Allergy (Verified 07/27/18 21:42) Past Medical History - General Information source: Patient - Social History Smoking Status: Never Smoker Frequency of alcohol use: None Drug Abuse: None Family History: Reviewed & Not Pertinent, Arthritis, CVA, Hyperlipidemia, Hypertension, Malignancy, Thyroid Disfunction. denies: CAD, COPD, DM Patient has suicidal ideation: No Patient has homicidal ideation: No - Past Medical History Cardiac Medical History: Reports: Hx Hypertension Pulmonary Medical History: Reports: Hx Asthma Neurological Medical History: Reports: Hx Migraine Renal/ Medical History: Denies: Hx Peritoneal Dialysis Psychiatric Medical History: Reports: Hx Depression Past Surgical History: Reports: Hx Oral Surgery - dental, Hx Tonsillectomy - 1987, Hx Tubal Ligation - Immunizations Immunizations up to date: Yes Hx Diphtheria, Pertussis, Tetanus Vaccination: Yes Review of Systems - Review of Systems Constitutional: Fever, Malaise, Weakness Cardiovascular: denies: Chest pain, Palpitations Respiratory: Cough, Short of breath Gastrointestinal: denies: Diarrhea, Vomiting -: Yes All other systems reviewed and negative Physical Exam - Vital signs Vitals: Temp Pulse Resp BP Pulse Ox 98.1 F 96 20 131/77 H 98 01/01/19 20:12 01/01/19 20:12 01/01/19 20:12 01/01/19 20:12 01/01/19 20:12 Interpretation: Normal - General General appearance: Appears well, Alert - HEENT Head: Normocephalic, Atraumatic Eyes: Normal Pupils: PERRL - Respiratory Respiratory status: No respiratory distress Chest status: Nontender Breath sounds: Normal Chest palpation: Normal - Cardiovascular Rhythm: Regular Heart sounds: Normal auscultation Murmur: No - Abdominal Inspection: Normal Distension: No distension Bowel sounds: Normal Tenderness: Nontender Organomegaly: No organomegaly - Back Back: Normal, Nontender - Extremities General upper extremity: Normal inspection, Nontender, Normal color, Normal ROM, Normal temperature General lower extremity: Normal inspection, Nontender, Normal color, Normal ROM, Normal temperature, Normal weight bearing. No: Viki's sign - Neurological Neuro grossly intact: Yes Cognition: Normal Orientation: AAOx4 [place] Coma Scale Eye Opening: Spontaneous [place] Coma Scale Verbal: Oriented [place] Coma Scale Motor: Obeys Commands [place] Coma Scale Total: 15 Speech: Normal Motor strength normal: LUE, RUE, LLE, RLE Sensory: Normal - Psychological Associated symptoms: Normal affect, Normal mood - Skin Skin Temperature: Warm Skin Moisture: Dry Skin Color: Normal Course - Re-evaluation Re-evalutation: 01/02/19 00:51 Patient presents with diffuse body aches and coughing. Evaluation appears consistent with an upper respiratory infection. I feel the patient is safe for discharge and can follow-up as an outpatient. - Vital Signs Vital signs: Temp Pulse Resp BP Pulse Ox 98.1 F 96 20 131/77 H 98 01/01/19 20:12 01/01/19 20:12 01/01/19 20:12 01/01/19 20:12 01/01/19 20:12 - Laboratory Result Diagrams: 01/01/19 23:50 01/01/19 23:50 Laboratory results interpreted by me: 01/01/19 01/01/19 23:50 23:50 RDW 14.5 H Plt Count 138 L Eos % (Auto) 7.8 H Potassium 3.4 L - Diagnostic Test Radiology reviewed: Image reviewed, Reports reviewed Discharge - Discharge Clinical Impression: URI (upper respiratory infection) Qualifiers: URI type: unspecified URI Qualified Code(s): J06.9 - Acute upper respiratory infection, unspecified Condition: Stable Disposition: HOME, SELF-CARE Instructions: Upper Respiratory Illness ([facility]) Additional Instructions: Please call your primary doctor first thing in the morning to arrange follow-up Prescriptions: Doxycycline Hyclate 100 mg PO BID 7 Days #14 capsule Hydrocodone/Acetaminophen [Saline 5-325 mg Tablet] 1 tab PO Q6 PRN 3 Days #12 tablet PRN Reason: Referrals: [facility] [Primary Care Provider] - Follow up in 3-5 days
[2019-01-02 01:19] VITALS: BP 130/65
== END 2019-01-02 01:19 | disposition home or self-care (01) ==
LOC: ER 20:05
DX: J06.9 Acute upper respiratory infection, unspecified (principal); R11.10 Vomiting, unspecified; M79.10 Myalgia, unspecified site; R06.02 Shortness of breath; R05 Cough; I10 Essential (primary) hypertension; J45.909 Unspecified asthma, uncomplicated
CPT/HCPCS: 36415; 84703; 85025; 80053; 71046; S0119

== ENCOUNTER 2019-01-04 10:53 | Emergency (ER) | payer SELFPAY ==
[2019-01-04] MEDS ORDERED: IPRATROPIUM/ALBUTEROL 0.5-2.5 MG/3 ML AMPUL NEB ONE ×3 (10:59→12:32)
[2019-01-04] MEDS ORDERED: ALBUTEROL SULFATE 0.083% NEB 2.5 MG/3 ML AMPUL NEB ONE (10:59)
[2019-01-04] MEDS ORDERED: DEXAMETHASONE SOD PHOS INJ 10 MG/1 ML VIAL IM ONE (11:04)
[2019-01-04] MEDS: ALBUTEROL SULFATE 0.083% NEB 2.5 MG/3 ML AMPUL NEB SCH ×2 (11:06→11:08)
--- NOTE | 2019-01-04 11:10 | ER Document Report ---
ED Medical Screen (RME) - General Chief Complaint: Shortness Of Breath Stated Complaint: DIFFICULTY BREATHING Time Seen by Provider: 01/04/19 11:04 Primary Care Provider: [facility] SALAZAR [Primary Care Provider] - Follow up as needed Mode of Arrival: Ambulatory Information source: Patient Notes: 43-year-old female presented to ED for extreme shortness of breath wheezing exacerbation of her asthma. She was extremely tight unable to get a good breath. She had inspiratory expiratory wheezing throughout. After starting her treatment she is breathing a little easier. Respirations are less labored she is able to speak now. She states she has a history of asthma high blood pressure and a tubal ligation. I have greeted and performed a rapid initial assessment of this patient. A comprehensive ED assessment and evaluation of the patient, analysis of test results and completion of medical decision making process will be conducted by an additional ED providers. TRAVEL OUTSIDE OF THE [place] IN LAST 30 DAYS: No - Related Data Allergies/Adverse Reactions: amoxicillin [Amoxicillin] Allergy (Verified 01/04/19 11:02) ketorolac [Ketorolac] Allergy (Verified 01/04/19 11:02) Past Medical History - Past Medical History Cardiac Medical History: Reports: Hx Hypertension Pulmonary Medical History: Reports: Hx Asthma Neurological Medical History: Reports: Hx Migraine Renal/ Medical History: Denies: Hx Peritoneal Dialysis Psychiatric Medical History: Reports: Hx Depression Past Surgical History: Reports: Hx Oral Surgery - dental, Hx Tonsillectomy - 1987, Hx Tubal Ligation - Immunizations Immunizations up to date: Yes Hx Diphtheria, Pertussis, Tetanus Vaccination: Yes Physical Exam - Vital signs Vitals: Temp Pulse Resp BP Pulse Ox 98.2 F 110 H 30 H 104/80 100 01/04/19 10:58 01/04/19 10:58 01/04/19 10:58 01/04/19 10:58 01/04/19 10:58 Course - Vital Signs Vital signs: Temp Pulse Resp BP Pulse Ox 98.2 F 110 H 30 H 104/80 100 01/04/19 10:58 01/04/19 10:58 01/04/19 10:58 01/04/19 10:58 01/04/19 10:58 Doctor's Discharge - Discharge Referrals: [facility] SALAZAR [Primary Care Provider] - Follow up as needed
--- NOTE | 2019-01-04 12:07 | RADIOLOGY REPORT (SQ) ---
EXAM DESCRIPTION: CHEST 2 VIEWS COMPLETED DATE/TIME: 01/04/2019 11:52 am REASON FOR STUDY: asthma exacerbation COMPARISON: Chest x-ray 01/01/2019, 07/28/2018. EXAM PARAMETERS: NUMBER OF VIEWS: two views TECHNIQUE: Digital Frontal and Lateral radiographic views of the chest acquired. RADIATION DOSE: NA LIMITATIONS: none FINDINGS: LUNGS AND PLEURA: No consolidation, pneumothorax or pleural effusion. MEDIASTINUM AND HILAR STRUCTURES: No masses or contour abnormalities. HEART AND VASCULAR STRUCTURES: Heart normal size. No evidence for failure. BONES: No acute findings. HARDWARE: None in the chest. IMPRESSION: NO ACUTE RADIOGRAPHIC FINDING IN THE CHEST. TECHNICAL DOCUMENTATION: JOB ID: [id number] [employer]- All Rights Reserved Reading location - IP/workstation name: [email or web address]
--- NOTE | 2019-01-04 12:42 | ER Document Report ---
ED Respiratory Problem - General Chief Complaint: Shortness Of Breath Stated Complaint: DIFFICULTY BREATHING Time Seen by Provider: 01/04/19 11:04 Primary Care Provider: [facility] [Primary Care Provider] - Follow up as needed Mode of Arrival: Ambulatory Notes: Patient is complaining of wheezing and difficulty breathing due to her asthma. She was seen here just 2 days ago for the same complaint. She had run out of her medications at that time. She was given a prescription for another inhaler and put on doxycycline. She was not put on any steroid medications. Patient sa ys she has had significant cough for some time. She is getting a lot of congestion up, would like thick cold,. Says she had some fever yesterday. Does not smoke. Patient went to work and forgot to take her inhaler today. She is been coughing all day. TRAVEL OUTSIDE OF THE [place] IN LAST 30 DAYS: No - Related Data Allergies/Adverse Reactions: amoxicillin [Amoxicillin] Allergy (Verified 01/04/19 11:02) ketorolac [Ketorolac] Allergy (Verified 01/04/19 11:02) Past Medical History - General Information source: Patient - Social History Smoking Status: Unknown if Ever Smoked Family History: Reviewed & Not Pertinent, Arthritis, CVA, Hyperlipidemia, Hypertension, Malignancy, Thyroid Disfunction. denies: CAD, COPD, DM Patient has suicidal ideation: No Patient has homicidal ideation: No - Past Medical History Cardiac Medical History: Reports: Hx Hypertension Pulmonary Medical History: Reports: Hx Asthma Neurological Medical History: Reports: Hx Migraine Psychiatric Medical History: Reports: Hx Depression Past Surgical History: Reports: Hx Oral Surgery - dental, Hx Tonsillectomy - 1987, Hx Tubal Ligation - Immunizations Immunizations up to date: Yes Hx Diphtheria, Pertussis, Tetanus Vaccination: Yes Review of Systems - Review of Systems Notes: CONSTITUTIONAL : Denies fever. CARDIOVASCULAR: Denies chest pain. RESPIRATORY: See HPI. GASTROINTESTINAL: Denies abdominal pain or nausea, vomiting, or diarrhea. GENITOURINARY: Denies difficulty or painful urinating, urinary frequency, blood in urine. Physical Exam - Vital signs Vitals: Temp Pulse Resp BP Pulse Ox 98.2 F 110 H 30 H 104/80 100 01/04/19 10:58 01/04/19 10:58 01/04/19 10:58 01/04/19 10:58 01/04/19 10:58 Notes: PHYSICAL EXAMINATION: GENERAL: Well-appearing, no acute distress. HEAD: Atraumatic, normocephalic. NECK: Normal range of motion, supple. LUNGS: Bilateral wheezes, but fairly good air exchange. She is finished 1 nebulizer treatment at this time. HEART: Regular rate and rhythm without murmurs heard. No chest pains. ABDOMEN: Soft, nontender. No guarding or rebound or masses felt. Extremities: Negative Homans bilaterally. Course - Vital Signs Vital signs: Temp Pulse Resp BP Pulse Ox 97.7 F 95 18 134/67 H 100 01/04/19 13:08 01/04/19 13:08 01/04/19 13:08 01/04/19 13:08 01/04/19 13:08 Discharge - Discharge Clinical Impression: Asthma Condition: Stable Disposition: HOME, SELF-CARE Additional Instructions: ASTHMA: You have been diagnosed as having asthma. This is a condition where there is episodic tightness in the bronchial tubes. Allergies, infections, and polluted or cold air may be contributing factors. Emergency treatment of a severe asthma attack may include adrenaline shots, or bronchodilator aerosol. You may feel lightheaded, have a decreased exercise tolerance and a rapid pulse for an hour or two. Rest and get plenty of fluids. Home treatment of asthma requires bronchodilator drugs. These can be administered by injection, inhalation, or by mouth. Antibiotics and corticosteroids may be required for some patients. You should avoid chemical fumes, dusts, pollens, and exercising in very cold or dry air. If you smoke, stop!! If you develop a fever, increased wheezing, chest pain, or severe shortness of breath, you should contact the doctor immediately. STEROID MEDICATION: You have been given an injection of or oral medicine of the cortisone/steroid class. This medication is used to control inflammation or allergy. Danilo t is usually only given for a short period of time, until the acute process subsides. There are usually no side effects from short-term use of cortisone-like medications. Some persons feel an increased sense of well-being and are not sleepy at bedtime. Long-term use of cortisone medications is best avoided, unless required for a severe condition. If your condition does not remit, or relapses after the course of corticosteroid medication, you should consult your physician. INHALED BRONCHODILATORS: You have received treatment(s) of and/or prescription for an inhaled bronchodilator -- a medication which stimulates the airways in the lung to dilate. This improves the flow of air in asthma, bronchitis, and emphysema. These medicines have some similarity to adrenaline, and can cause similar side effects: shakiness, racing heart, and a sense of nervousness. These side effects decrease with time. Contact your doctor if these side effects are severe. Do not over-use the medicine. Too-frequent use of the inhaler may make it ineffective. Call your doctor if the inhaler is not controlling your symptoms at the prescribed doses. Your chest x-ray was normal. There is no evidence of pneumonia, etc. You can discontinue taking the doxycycline. FOLLOW-UP CARE: If you have been referred to a physician for follow-up care, call the physicians office for an appointment as you were instructed or within the next two days. If you experience worsening or a significant change in your symptoms, notify the physician immediately or return to the Emergency Department at any time for re-evaluation. Prescriptions: Prednisone [Deltasone 10 mg Tablet] 10 mg PO ASDIR PRN #21 tablet PRN Reason: Albuterol Sulfate [Proair HFA Inhalation Aerosol 8.5 gm MDI] 2 puff IH Q4H PRN #1 mdi PRN Reason: Forms: Return to Work [facility]: [facility] [Primary Care Provider] - Follow up as needed
[2019-01-04 13:08] VITALS: BP 134/67
== END 2019-01-04 13:08 | disposition home or self-care (01) ==
LOC: ER 10:53
DX: J45.909 Unspecified asthma, uncomplicated (principal); T48.906A Underdosing of unspecified agents primarily acting on the respiratory system, initial encounter; Z91.14 Patient's other noncompliance with medication regimen; I10 Essential (primary) hypertension; R05 Cough; Z88.0 Allergy status to penicillin; Z88.8 Allergy status to other drugs, medicaments and biological substances
CPT/HCPCS: 94640 ×2; 99284; 96372; 71046; J1100; J7620

== ENCOUNTER 2019-01-09 10:24 | Emergency (ER) | payer SELFPAY ==
[2019-01-09 10:31] VITALS: BP 145/87
[2019-01-09] MEDS ORDERED: HYDROCODONE/ACETAMINOPHEN 5-325 MG TABLET PO ONE (11:37)
--- NOTE | 2019-01-09 11:37 | ER Document Report ---
ED Oral Problem - General Chief Complaint: Toothache Stated Complaint: MOUTH/TOOTH PAIN Time Seen by Provider: 01/09/19 11:32 Primary Care Provider: [facility] [Provider Group] - Follow up in 3-5 days (for dental follow up ) [facility] - Follow up as needed TRAVEL OUTSIDE OF THE [place] IN LAST 30 DAYS: No - HPI Notes: 43-year-old female to the emergency department with complaints of left upper toothache that is been getting worse for the past 2 days. She states that she had a temporary filling in this tooth and it fell out yesterday. She states that since then she had pain. She denies any fevers, chills, chest pain, shortness of breath, drooling, voice change, tongue swelling. She has not seen a dentist for this. She denies any other complaints. - Related Data Allergies/Adverse Reactions: amoxicillin [Amoxicillin] Allergy (Verified 01/04/19 11:02) ketorolac [Ketorolac] Allergy (Verified 01/04/19 11:02) Past Medical History - General Information source: Patient - Social History Smoking Status: Never Smoker Chew tobacco use (# tins/day): No Frequency of alcohol use: Occasional Drug Abuse: None Family History: Reviewed & Not Pertinent, Arthritis, CVA, Hyperlipidemia, Hypertension, Malignancy, Thyroid Disfunction. denies: CAD, COPD, DM Patient has suicidal ideation: No Patient has homicidal ideation: No - Past Medical History Cardiac Medical History: Reports: Hx Hypertension Pulmonary Medical History: Reports: Hx Asthma Neurological Medical History: Reports: Hx Migraine Renal/ Medical History: Denies: Hx Peritoneal Dialysis Psychiatric Medical History: Reports: Hx Depression Past Surgical History: Reports: Hx Oral Surgery - dental, Hx Tonsillectomy - 1987, Hx Tubal Ligation - Immunizations Immunizations up to date: Yes Hx Diphtheria, Pertussis, Tetanus Vaccination: Yes Review of Systems - Review of Systems Constitutional: denies: Chills, Fever EENT: See HPI, Mouth pain, Dental problem. denies: Difficulty swallowing, Throat swelling Cardiovascular: denies: Chest pain, Palpitations Respiratory: denies: Cough, Short of breath Gastrointestinal: denies: Abdominal pain, Diarrhea, Nausea, Vomiting Musculoskeletal: No symptoms reported Skin: No symptoms reported Neurological/Psychological: Headaches -: Yes All other systems reviewed and negative Physical Exam - Vital signs Vitals: Temp Pulse Resp BP Pulse Ox 98.2 F 79 16 145/87 H 96 01/09/19 10:30 01/09/19 10:30 01/09/19 10:30 01/09/19 10:30 01/09/19 10:30 Interpretation: Normal - General General appearance: Appears well, Alert - HEENT Head: Normocephalic, Atraumatic Eyes: Normal Pupils: PERRL Ears: Normal External canal: Normal Tympanic membrane: Normal Sinus: Normal Nasal: Normal Mouth/Lips: Normal, Caries - there are several dental caries in the mouth. Tooth #15 is decayed down into the gum line. The surrounding gum is erythematous and edematous, without fluctuance. no Efrem's angina, no facial swelling, airway is grossly patent, no trismus. Uvula is midline.. No: Angioedema - Respiratory Respiratory status: No respiratory distress Chest status: Nontender Breath sounds: Normal Chest palpation: Normal - Cardiovascular Rhythm: Regular Heart sounds: Normal auscultation Murmur: No - Extremities General upper extremity: Normal inspection, Nontender, Normal color, Normal ROM, Normal temperature General lower extremity: Normal inspection, Nontender, Normal color, Normal ROM, Normal temperature, Normal weight bearing - Neurological Neuro grossly intact: Yes Cognition: Normal Orientation: AAOx4 [place] Coma Scale Eye Opening: Spontaneous [place] Coma Scale Verbal: Oriented [place] Coma Scale Motor: Obeys Commands [place] Coma Scale Total: 15 Speech: Normal Cranial nerves: Normal Cerebellar coordination: Normal Motor strength normal: LUE, RUE, LLE, RLE Additional motor exam normals: Equal deportation examiner. No: Pronator drift Sensory: Normal - Psychological Associated symptoms: Normal affect, Normal mood - Skin Skin Temperature: Warm Skin Moisture: Dry Skin Color: Normal Course - Vital Signs Vital signs: Temp Pulse Resp BP Pulse Ox 98.2 F 79 16 145/87 H 96 01/09/19 10:30 01/09/19 10:30 01/09/19 10:30 01/09/19 10:30 01/09/19 10:30 Discharge - Discharge Clinical Impression: Dental caries, Toothache, Hypertension Condition: Stable Disposition: HOME, SELF-CARE Instructions: Clindamycin ([facility]), Toothache ([facility]) Additional Instructions: FOLLOW UP WITH THE DENTAL CLINIC LISTED BELOW. COMPLETE ALL ANTIBIOTICS. RETURN IF WORSENING PAIN, FACIAL SWELLING, DIFFICULTY BREATHING, OR ANY OTHER CONCERNS. Prescriptions: Clindamycin HCl 300 mg PO TID #30 capsule Hydrocodone/Acetaminophen [[place] 5-325 mg Tablet] 1 tab PO Q6H #9 tablet Chlorhexidine Gluconate [Peridex] 15 ml MM BID #420 ml Forms: Return to Work Referrals: [facility] [Primary Care Provider] - Follow up as needed [facility] [Provider Group] - Follow up in 3-5 days (for dental follow up )
== END 2019-01-09 11:58 | disposition home or self-care (01) ==
LOC: ER 10:24
DX: K02.9 Dental caries, unspecified (principal); K08.89 Other specified disorders of teeth and supporting structures; I10 Essential (primary) hypertension; J45.909 Unspecified asthma, uncomplicated; Z88.0 Allergy status to penicillin; Z88.8 Allergy status to other drugs, medicaments and biological substances
CPT/HCPCS: 99282

== ENCOUNTER 2019-03-13 11:45 | Emergency (ER) | payer SELFPAY ==
[2019-03-13] MEDS ORDERED: DEXAMETHASONE SOD PHOS INJ 10 MG/1 ML VIAL IM ONE (12:04)
[2019-03-13] MEDS ORDERED: IPRATROPIUM/ALBUTEROL 0.5-2.5 MG/3 ML AMPUL NEB ONE (12:04)
--- NOTE | 2019-03-13 12:10 | ER Document Report ---
HPI - HPI Time Seen by Provider: 03/13/19 11:57 Pain Level: 4 Notes: 43-year-old female with a hx of asthma presents to the emergency room with complaints of a productive cough for the last week. Patient states she has been napping without any relief. Tried [id number] Mucinex without issues. The time, nothing makes better. Denies fevers, chills, chest pain,palpitations, shortness of breath, dyspnea, nausea, vomiting, diarrhea, abdominal pain, hematuria,blurred vision, double vision, loss of vision, speech changes, LH, dizziness, syncope, headaches, ST, neck pain, weakness, bowel or bladder dysfunction, saddle anesthesia, numbness or tingling in bilateral upper or lower extremities equally, muscle paralysis, weakness in bilateral upper or lower extremities equally or rash. - REPRODUCTIVE LMP: 01/2019 Reproductive: DENIES: : Past Medical History - General Information source: Patient - Social History Smoking Status: Former Smoker Chew tobacco use (# tins/day): No Frequency of alcohol use: Occasional Drug Abuse: Marijuana Family History: Reviewed & Not Pertinent, Arthritis, CVA, Hyperlipidemia, Hypertension, Malignancy, Thyroid Disfunction. denies: CAD, COPD, DM Patient has suicidal ideation: No Patient has homicidal ideation: No - Past Medical History Cardiac Medical History: Reports: Hx Hypertension Pulmonary Medical History: Reports: Hx Asthma Neurological Medical History: Reports: Hx Migraine Renal/ Medical History: Denies: Hx Peritoneal Dialysis Psychiatric Medical History: Reports: Hx Depression Past Surgical History: Reports: Hx Oral Surgery - dental, Hx Tonsillectomy - 1987, Hx Tubal Ligation - Immunizations Immunizations up to date: Yes Hx Diphtheria, Pertussis, Tetanus Vaccination: Yes Vertical Provider Document - CONSTITUTIONAL Agree With Documented VS: Yes Exam Limitations: No Limitations General Appearance: WD/WN Notes: PHYSICAL EXAMINATION: reviewed vital signs by RN GENERAL: Well-appearing, well-nourished and in no acute distress. HEAD: Atraumatic, normocephalic. EYES: Pupils equal round and reactive to light, extraocular movements intact, conjunctiva are normal. ENT: Nares patent, oropharynx clear without exudates. Moist mucous membranes. NECK: Normal range of motion, supple without lymphadenopathy LUNGS: Wheezing in bilateral upper lobes bilaterally, after breathing treatment ,breath sounds clear to auscultation bilaterally and equal. No wheezes rales or rhonchi. HEART: Regular rate and rhythm without murmurs ABDOMEN: Soft, nontender, nondistended abdomen. No guarding, no rebound. No m asses appreciated. Female : deferred Musculoskeletal: Normal range of motion, no pitting or edema. No cyanosis. NEUROLOGICAL: Cranial nerves grossly intact. Normal speech, normal gait. Normal sensory, motor exams PSYCH: Normal mood, normal affect. SKIN: Warm, Dry, normal turgor, no rashes or lesions noted. - INFECTION CONTROL TRAVEL OUTSIDE OF THE [place] IN LAST 30 DAYS: No Course - Re-evaluation Re-evalutation: 03/13/19 12:08 Afebrile vital stable no distress. Nurses notes reviewed. Patient given DuoNeb for wheezing. No clinical evidence of pneumonia, CHF or PE on clinical review and on cxr. Presentation of several days of sore throat in an otherwise well-appearing patie nt. Airway is patent. No difficulty handling oral secretions. Vitals within normal limits. Patient was treated with a course of prednisone as well as tessalon perls, Ventolin inhaler and antihistamine. advised receiving symptomatic care. At this time will discharge with return precautions and follow-up recommendations. Verbal discharge instructions given a the bedside and opportunity for questions given. Medication warnings reviewed. Patient is in agreement with this plan and has verbalized understanding of return precautions and the need for primary care follow-up in the next 24-72 hours. 03/13/19 13:20 - Vital Signs Vital signs: Temp Pulse Resp BP Pulse Ox 98.1 F 100 18 130/77 H 97 03/13/19 11:56 03/13/19 11:48 03/13/19 11:56 03/13/19 11:48 03/13/19 11:56 Discharge - Discharge Clinical Impression: Acute asthma exacerbation, Cough Condition: Stable Disposition: HOME, SELF-CARE Instructions: Bronchitis With Bronchospasm (Wheezing) ([facility]), Asthma ([facility]) Additional Instructions: Your chest x-ray was normal. Please take medications as directed. Follow-up with your primary care provider. Return immediately for any new or worsening symptoms. Follow up with primary care provider, call tomorrow to make followup appointment. Prescriptions: Albuterol Sulfate [Proair Respiclick] 90 mcg IH Q4HP PRN #1 aer.[email or web address] PRN Reason: Benzonatate [Tessalon Perles 100 mg Capsule] 100 mg PO Q8HP PRN #20 capsule PRN Reason: Prednisone [Deltasone 20 mg Tablet] 3 tab PO DAILY 5 Days #15 tablet Forms: Return to Work Referrals: [facility] [Primary Care Provider] - Follow up as needed
--- NOTE | 2019-03-13 13:18 | RADIOLOGY REPORT (SQ) ---
EXAM DESCRIPTION: CHEST 2 VIEWS COMPLETED DATE/TIME: 03/13/2019 1:06 pm REASON FOR STUDY: cough x 1 week, wheezing COMPARISON: 01/04/2019. EXAM PARAMETERS: NUMBER OF VIEWS: two views TECHNIQUE: Digital Frontal and Lateral radiographic views of the chest acquired. RADIATION DOSE: NA LIMITATIONS: none FINDINGS: LUNGS AND PLEURA: No opacities, masses or pneumothorax. No pleural effusion. MEDIASTINUM AND HILAR STRUCTURES: No masses or contour abnormalities. HEART AND VASCULAR STRUCTURES: Heart normal size. No evidence for failure. BONES: No acute findings. HARDWARE: None in the chest. OTHER: No other significant finding. IMPRESSION: NO ACUTE RADIOGRAPHIC FINDING IN THE CHEST. TECHNICAL DOCUMENTATION: JOB ID: [id number] [employer]- All Rights Reserved Reading location - IP/workstation name: [email or web address]
[2019-03-13 14:28] VITALS: BP 128/74
== END 2019-03-13 14:29 | disposition home or self-care (01) ==
LOC: ER 11:45
DX: J45.901 Unspecified asthma with (acute) exacerbation (principal); R05 Cough; J02.9 Acute pharyngitis, unspecified; I10 Essential (primary) hypertension; Z87.891 Personal history of nicotine dependence
CPT/HCPCS: 71046; J1100; J7620; 94640; 96372; 99283

== ENCOUNTER 2019-05-18 16:15 | Observation (INO) | payer OTHER ==
[2019-05-18] MEDS ORDERED: IPRATROPIUM/ALBUTEROL 0.5-2.5 MG/3 ML AMPUL NEB ONE ×2 (16:23)
--- NOTE | 2019-05-18 16:23 | ER Document Report ---
ED Medical Screen (RME) - General Chief Complaint: Shortness Of Breath Stated Complaint: SHORT OF BREATH Time Seen by Provider: 05/18/19 16:19 Primary Care Provider: [facility] [Primary Care Provider] - Follow up as needed Mode of Arrival: Wheelchair Information source: Patient Notes: 43-year-old female presented to ED for complaint of cough congestion and difficulty breathing. She states she does have acute asthma. Patient is alert and oriented with mild shortness of breath. She does have auditory inspiratory expiratory wheezes throughout. She states she has had a recent cough and cold congestion. Blood pressure is 153/85 O2 sat 97% pulse 98 temp 98.2. I have greeted and performed a rapid initial assessment of this patient. A comprehensive ED assessment and evaluation of the patient, analysis of test results and completion of medical decision making process will be conducted by an additional ED providers. TRAVEL OUTSIDE OF THE [place] IN LAST 30 DAYS: No - Related Data Allergies/Adverse Reactions: amoxicillin [Amoxicillin] Allergy (Verified 05/18/19 16:19) ketorolac [Ketorolac] Allergy (Verified 05/18/19 16:19) Past Medical History - Past Medical History Cardiac Medical History: Reports: Hx Hypertension Pulmonary Medical History: Reports: Hx Asthma Neurological Medical History: Reports: Hx Migraine Renal/ Medical History: Denies: Hx Peritoneal Dialysis Psychiatric Medical History: Reports: Hx Depression Past Surgical History: Reports: Hx Oral Surgery - dental, Hx Tonsillectomy - 1987, Hx Tubal Ligation - Immunizations Immunizations up to date: Yes Hx Diphtheria, Pertussis, Tetanus Vaccination: Yes Doctor's Discharge - Discharge [facility]errals: [facility] [[facility]] - Follow up as needed
[2019-05-18] MEDS ORDERED: ALBUTEROL SULFATE 0.083% NEB 2.5 MG/3 ML AMPUL NEB ONE ×2 (16:25→18:42)
[2019-05-18] MEDS ORDERED: METHYLPREDNISOLONE INJ 125 MG/2 ML SDV IV ONE (16:26)
[2019-05-18] MEDS ORDERED: NORMAL SALINE 1000 ML 1,000 ML IV ONE ×2 (16:38→18:37)
[2019-05-18 16:56] LABS: ABSOLUTE EOSINOPHILS # (AUTO) 1.8 10^3/uL (0.0-0.6); ABSOLUTE LYMPHOCYTES (AUTO) 2.5 10^3/uL (0.5-4.7); ABSOLUTE MONOCYTES (AUTO) 0.6 10^3/uL (0.1-1.4); BASOPHILS % (AUTO) 0.3 % (0-2); EOSINOPHILS % (AUTO) 17.8 % (0-6); HEMATOCRIT 40.5 % (36.0-47.0); HEMOGLOBIN 13.2 g/dL (12.0-15.5); LYMPHOCYTES % (AUTO) 24.9 % (13-45); MEAN CORPUSCULAR HGB CONC 32.7 g/dL (32.0-36.0); MEAN CORPUSCULAR VOLUME 92 fl (80-97); MONOCYTES % (AUTO) 6.4 % (3-13); PLATELET COUNT 202 10^3/uL (150-450); RED BLOOD COUNT 4.41 10^6/uL (3.72-5.28); RED CELL DISTRIBUTION WIDTH 15.4 % (11.5-14.0); SEGMENTED NEUTROPHILS % (AUTO) 50.6 % (42-78); TOTAL CELLS COUNTED % (AUTO) 100 %
--- NOTE | 2019-05-18 17:11 | RADIOLOGY REPORT (SQ) ---
EXAM DESCRIPTION: CHEST SINGLE VIEW COMPLETED DATE/TIME: 05/18/2019 4:59 pm REASON FOR STUDY: Acute asthma exacerbation COMPARISON: 03/13/2019 TECHNIQUE: Single frontal radiographic view of the chest acquired. NUMBER OF VIEWS: One view. LIMITATIONS: None. FINDINGS: LUNGS AND PLEURA: No pneumothorax. No consolidation or pleural effusion. MEDIASTINUM AND HILAR STRUCTURES: Stable. HEART AND VASCULAR STRUCTURES: Stable. BONES: No acute findings. HARDWARE: None in the chest. OTHER: No other significant finding. IMPRESSION: NO ACUTE FINDINGS. TECHNICAL DOCUMENTATION: JOB ID: [id number] [place]-[id number] 2010 [employer]- All Rights Reserved Reading location - IP/workstation name: [email or web address]
[2019-05-18] MEDS: MAGNESIUM SULFATE/D5W 1 GM/100 ML RTUPB IV SCH ×2 (17:26→18:51)
--- NOTE | 2019-05-18 18:00 | EKG REPORT ---
SEVERITY:- ABNORMAL ECG - SINUS RHYTHM LEFT ATRIAL ABNORMALITY BORDERLINE T ABNORMALITIES, ANTERIOR LEADS : Confirmed by: José Miguel Au MD 18-May-2019 18:00:02
[2019-05-18 18:34] LABS: ALKALINE PHOSPHATASE 52 U/L (38-126); ANION GAP 7 (5-19); ASPARTATE AMINO TRANSFERASE 25 U/L (14-36); BILIRUBIN,TOTAL 0.4 mg/dL (0.2-1.3); BLOOD UREA NITROGEN 12 mg/dL (7-20); CALCIUM 9.2 mg/dL (8.4-10.2); CARBON DIOXIDE 27 mmol/L (22-30); CHLORIDE 107 mmol/L (98-107); CREATINE KINASE 531 U/L (30-135); GLUCOSE 99 mg/dL (75-110); POTASSIUM 3.8 mmol/L (3.6-5.0); TOTAL PROTEIN 7.2 g/dL (6.3-8.2)
--- NOTE | 2019-05-18 18:43 | ER Document Report ---
Entered by CHASE SHAW SCRIBE 05/18/19 [id number] Acting as scribe for:LIO ESQUEDA MD ED General - General Chief Complaint: Breathing Difficulty Stated Complaint: SHORT OF BREATH Time Seen by Provider: 05/18/19 16:19 Primary Care Provider: [facility],[place] [NO LOCAL MD] - Follow up as needed Mode of Arrival: Wheelchair Information source: Patient Notes: This 43 year old female patient presents to the emergency department today with shortness of breath. Patient states she has had cold symptoms with wheezing the past week and a half. Patient states she had a fever yesterday and had a cough with yellow sputum for a few days. Patient states her cough changed to clear sputum today. Patient states her inhaler provides only short relief. She has been using the inhaler about every hour today. Patient states she has a history of asthma and is exposed to 2nd hand smoke(sister and [id number] smoke in the house). TRAVEL OUTSIDE OF THE [place] IN LAST 30 DAYS: No - Related Data Allergies/Adverse Reactions: amoxicillin [Amoxicillin] Allergy (Verified 05/18/19 16:19) ketorolac [Ketorolac] Allergy (Verified 05/18/19 16:19) Past Medical History - General Information source: Patient - Social History Smoking Status: Never Smoker Cigarette use (# per day): No Chew tobacco use (# tins/day): No Frequency of alcohol use: Occasional Family History: Reviewed & Not Pertinent, Arthritis, CVA, Hyperlipidemia, Hypertension, Malignancy, Thyroid Disfunction Patient has suicidal ideation: No Patient has homicidal ideation: No - Past Medical History Cardiac Medical History: Reports: Hx Hypertension Pulmonary Medical History: Reports: Hx Asthma Neurological Medical History: Reports: Hx Migraine Psychiatric Medical History: Reports: Hx Depression Past Surgical History: Reports: Hx Oral Surgery - dental, Hx Tonsillectomy - 1987, Hx Tubal Ligation - Immunizations Immunizations up to date: Yes Hx Diphtheria, Pertussis, Tetanus Vaccination: Yes Review of Systems - Review of Systems Constitutional: See HPI, Fever EENT: No symptoms reported Cardiovascular: No symptoms reported Respiratory: See HPI, Cough, Short of breath Gastrointestinal: No symptoms reported Genitourinary: No symptoms reported Female Genitourinary: No symptoms reported Musculoskeletal: No symptoms reported Skin: No symptoms reported Hematologic/Lymphatic: No symptoms reported Neurological/Psychological: No symptoms reported -: Yes All other systems reviewed and negative Physical Exam - Vital signs Vitals: Temp Pulse Resp BP Pulse Ox 98.2 F 98 24 H 153/85 H 97 05/18/19 16:23 05/18/19 16:23 05/18/19 16:23 05/18/19 16:23 05/18/19 16:23 Interpretation: Hypertensive, Tachycardic, Tachypneic - General General appearance: Appears well, Alert - HEENT Head: Normocephalic, Atraumatic Eyes: Normal Pupils: PERRL Nasal: Other - Nasal/sinus congestion - Respiratory Respiratory status: Retractions, Tachypnea Chest status: Nontender Breath sounds: Nonproductive cough, Wheezing - Diffuse inspiratory expiratory wheezes, worse on the right. - Cardiovascular Rhythm: Tachycardia Heart sounds: Normal auscultation Murmur: No - Abdominal Inspection: Normal Distension: No distension Bowel sounds: Normal Tenderness: Nontender - Back Back: Normal - Extremities General upper extremity: Normal inspection. No: Edema General lower extremity: Normal inspection. No: Edema - Neurological Neuro grossly intact: Yes Cognition: Normal Orientation: AAOx4 - Psychological Associated symptoms: Normal affect, Normal mood - Skin Skin Temperature: Warm Skin Moisture: Dry Skin Color: Normal Course - Re-evaluation Re-evalutation: 05/18/19 18:31 Patient is still a little tachypneic with some retractions. She states that her breathing is better but is still nowhere close to baseline. She does continue to have diffuse inspiratory expiratory wheezes. - Vital Signs Vital signs: Temp Pulse Resp BP Pulse Ox 98.2 F 98 22 H 140/87 H 97 05/18/19 16:23 05/18/19 16:23 05/18/19 16:45 05/18/19 17:01 05/18/19 18:00 - Laboratory Result Diagrams: 05/18/19 16:40 05/18/19 18:10 Laboratory results interpreted by me: 05/18/19 05/18/19 16:40 18:10 RDW 15.4 H Eos % (Auto) 17.8 H Absolute Eos (auto) 1.8 H Creatine Kinase 531 H - Diagnostic Test Radiology reviewed: Image reviewed, Reports reviewed - Chest x-ray shows no acute findings. - EKG Interpretation by Me EKG shows normal: Sinus rhythm, [place], Intervals, QRS Complexes. abnormal: ST-T Waves - Borderline anterior T abnormalities Rate: Normal - 99 Rhythm: NSR P Waves: LAE When compared to previous EKG there are: No significant change - Consults Dr. Luong Time consulted: 18:29 Consulted provider: other - We will have Dr. Cardenas come see the patient when he comes on at 7 PM. Can put the patient in for a telemetry bed at this time. - Transfer of Care Care transferred to following provider: Dr. Gunter Notes: 05/18/19 18:41 Has been admitted to the hospitalist service to a telemetry bed. She will be seen by the hospitalist who comes on at 7 PM. Troponin is the only lab test pending at this time. Discharge - Discharge Clinical Impression: Acute exacerbation of severe persistent extrinsic asthma High blood pressure Qualifiers: Hypertension type: essential hypertension Qualified Code(s): I10 - Essential (primary) hypertension Condition: Good Disposition: ADMITTED INPATIENT Admitting Provider: Cherise (Hospitalist) Unit Admitted: Telemetry [facility]: [facility] [NO LOCAL MD] - Follow up as needed Scribe Attestation: 05/18/19 18:32 I personally performed the services described in the documentation, reviewed and edited the documentation which was dictated to the scribe in my presence, and it accurately records my words and actions. I personally performed the services described in the documentation, reviewed and edited the documentation which was dictated to the scribe in my presence, and it accurately records my words and actions.
[2019-05-18] MEDS ORDERED: IPRATROPIUM/ALBUTEROL 0.5-2.5 MG/3 ML AMPUL NEB PRN (20:14)
[2019-05-18] MEDS ORDERED: KETOROLAC TROMETHAMINE INJ/PF 30 MG/1 ML SDV IV PRN (20:14)
[2019-05-18] MEDS ORDERED: PREDNISONE 20 MG TABLET PO ONE (21:15)
[2019-05-18] MEDS ORDERED: LEVOFLOXACIN 750 MG/D5W RTU 750 MG/150 ML RTUPB IV ONE (22:00)
[2019-05-18] MEDS ORDERED: FLUTICASONE NASAL SPRAY 50 MCG/SPRY 120 SPRAY/16 GM ONE (22:10)
[2019-05-18] MEDS ORDERED: CHLORPHENIRAMINE MALEATE 4 MG TABLET ONE (22:10)
[2019-05-18] MEDS: FLUTICASONE NASAL SPRAY 50 MCG/SPRY 120 SPRAY/16 GM NASL SCH (22:23)
[2019-05-18] MEDS: CHLORPHENIRAMINE MALEATE 4 MG TABLET PO SCH (22:23)
[2019-05-18] MEDS: HEPARIN SOD (PORCINE) 5,000 UNIT/ML 1 ML VIAL SUBCUT SCH (22:25)
[2019-05-19] MEDS: IPRATROPIUM/ALBUTEROL 0.5-2.5 MG/3 ML AMPUL NEB SCH ×3 (00:16→16:28)
[2019-05-19] MEDS: CHLORPHENIRAMINE MALEATE 4 MG TABLET PO SCH ×3 (03:50→18:12)
--- NOTE | 2019-05-19 04:05 | PDOC H&P ---
History of Present Illness Admission Date/PCP: 05/18/19 19:26 JAMA BOOKER MD Patient complains of: Shortness of breath and wheeze History of Present Illness: MARGA CAVAZOS is a 43 year old female with a past medical history of hypertension, asthma, migraine and depression. She presents with 4 days of rhinorrhea, shortness of breath, paroxysms of productive cough and wheeze prompting her to seek evaluation in the emergency room. She is found to have tachypnea, retractions, and a audible wheeze at bedside. She receives steroids, albuterol, Atrovent, magnesium with minimal improvement and is referred to the hospitalist for admission. Labs reveal a eosinophilic shift. She admits exposure to known triggers including smoke. She denies GERD, fever chills nausea vomiting or chest pain. Past Medical History Cardiac Medical History: Reports: Hypertension Pulmonary Medical History: Reports: Asthma Neurological Medical History: Reports: Migraine Psychiatric Medical History: Reports: Depression Past Surgical History Past Surgical History: Reports: Tonsillectomy - 1987, Tubal Ligation Social History Information Source: Patient, [facility] Records Lives with: Family Smoking Status: Never Smoker Electronic Cigarette use?: No Frequency of Alcohol Use: Occasional Hx Recreational Drug Use: No Drugs: None Hx Prescription Drug Abuse: No - Advance Directive Resuscitation Status: Full Code Family History Family History: Arthritis, CVA, Hyperlipidemia, Hypertension, Malignancy, Thyroid Disfunction Parental Family History Reviewed: Yes Children Family History Reviewed: Yes Sibling(s) Family History Reviewed.: Yes Medication/Allergy Home Medications: Hydrochlorothiazide [Hydrodiuril 25 mg Tablet] 1 tab PO DAILY 02/04/15 Azithromycin [Zithromax 250 mg Tablet] 250 mg PO ASDIR PRN #6 tablet 08/23/15 Hydrochlorothiazide [Hydrodiuril 25 mg Tablet] 25 mg PO QAM #30 tablet 11/13/15 Budesonide/Formoterol Fumarate [Symbicort Hfa 160-4.5 Mcg Inhaler 6 gm] 2 puff IH Q12 #1 inhaler 09/13/16 Hydrochlorothiazide 25 mg PO DAILY #30 tablet 09/13/16 Cephalexin Monohydrate [Keflex 500 mg Capsule] 500 mg PO BID #20 capsule 10/01/16 Phenazopyridine HCl [Pyridium 100 Mg Tablet] 100 mg PO Q8 #9 tablet 10/01/16 Hydrochlorothiazide 25 mg PO DAILY #30 tablet 06/22/17 Ipratropium/Albuterol Sulfate [Duoneb 3 ml Ampul] 3 ml NEB RTQ4 #60 vial.neb 01/23/18 Prednisone [Sterapred Ds] 10 mg PO ASDIR PRN 6 Days #1 tab.ds.pk 01/23/18 Chlorpheniramine Maleate [Chlor-Trimeton 4 mg Tablet] 1 tab PO Q4 PRN #1 pkg 02/19/18 Albuterol Sulfate [Ventolin 0.083% Neb 2.5 mg/3 mL Ampul] 1 vial NEB Q4 #30 vial 03/15/18 Albuterol Sulfate [Ventolin 0.083% Neb 2.5 mg/3 mL Ampul] 1 vial NEB Q4 #30 vial 07/28/18 Albuterol Sulfate [Proair HFA Inhalation Aerosol 8.5 gm MDI] 2 puff IH Q4H PRN #1 mdi 01/04/19 Chlorhexidine Gluconate [Peridex] 15 ml MM BID #420 ml 01/09/19 Clindamycin HCl 300 mg PO TID #30 capsule 01/09/19 Hydrocodone/Acetaminophen [[place] 5-325 mg Tablet] 1 tab PO Q6H #9 tablet 9 Albuterol Sulfate [Proair Respiclick] 90 mcg IH Q4HP PRN #1 aer.pow.ba 03/13/19 Benzonatate [Tessalon Perles 100 mg Capsule] 100 mg PO Q8HP PRN #20 capsule 03/13/19 Prednisone [Deltasone 20 mg Tablet] 3 tab PO DAILY 5 Days #15 tablet 03/13/19 Allergies/Adverse Reactions: amoxicillin [Amoxicillin] Allergy (Verified 05/18/19 16:19) ketorolac [Ketorolac] Allergy (Verified 05/18/19 16:19) Review of Systems Constitutional: ABSENT: chills, fever(s), headache(s), weight gain, weight loss Eyes: ABSENT: visual disturbances Ears: ABSENT: hearing changes Cardiovascular: ABSENT: chest pain, dyspnea on exertion, edema, orthropnea, palpitations Respiratory: ABSENT: cough, hemoptysis Gastrointestinal: ABSENT: abdominal pain, constipation, diarrhea, hematemesis, hematochezia, nausea, vomiting Genitourinary: ABSENT: dysuria, hematuria Musculoskeletal: ABSENT: joint swelling Integumentary: ABSENT: rash, wounds Neurological: ABSENT: abnormal gait, abnormal speech, confusion, dizziness, focal weakness, syncope Psychiatric: ABSENT: anxiety, depression, homidical ideation, suicidal ideation Endocrine: ABSENT: cold intolerance, heat intolerance, polydipsia, polyuria Hematologic/Lymphatic: ABSENT: easy bleeding, easy bruising Physical Exam Vital Signs: Temp Pulse Resp BP Pulse Ox 98.1 F 95 18 143/74 H 96 05/18/19 23:24 05/19/19 00:00 05/19/19 00:00 05/18/19 23:24 05/18/19 23:24 Intake & Output 05/17/19 05/18/19 05/19/19 11:59 11:59 11:59 Intake Total 1572 Balance 1572 Weight 80.739 kg General appearance: PRESENT: cooperative, mild distress, well-developed, well- nourished Head exam: PRESENT: atraumatic, normocephalic Eye exam: PRESENT: conjunctiva pink, EOMI, PERRLA. ABSENT: scleral icterus Ear exam: PRESENT: normal external ear exam Mouth exam: PRESENT: moist, tongue midline Neck exam: ABSENT: carotid bruit, JVD, lymphadenopathy, thyromegaly Respiratory exam: PRESENT: accessory muscle use, decreased breath sounds, retr action, wheezes. ABSENT: rales, rhonchi Cardiovascular exam: PRESENT: tachycardia. ABSENT: diastolic murmur, rubs, systolic murmur Pulses: PRESENT: normal dorsalis pedis pul Vascular exam: PRESENT: normal capillary refill GI/Abdominal exam: PRESENT: normal bowel sounds, soft. ABSENT: distended, g uarding, mass, organolmegaly, rebound, tenderness Rectal exam: PRESENT: deferred Extremities exam: PRESENT: full ROM. ABSENT: calf tenderness, clubbing, pedal edema Neurological exam: PRESENT: alert, awake, oriented to person, oriented to place, oriented to time, oriented to situation, CN II-XII grossly intact. ABSENT: mo tor sensory deficit Psychiatric exam: PRESENT: appropriate affect, normal mood. ABSENT: homicidal ideation, suicidal ideation Skin exam: PRESENT: dry, intact, warm. ABSENT: cyanosis, rash Results Laboratory Results: 05/18/19 16:40 05/18/19 18:10 05/18/19 05/18/19 05/18/19 16:40 16:40 18:10 WBC 10.0 RBC 4.41 Hgb 13.2 Hct 40.5 MCV 92 MCH 30.0 MCHC 32.7 RDW 15.4 H Plt Count 202 Seg Neutrophils % 50.6 Sodium Cancelled 141.1 Potassium Cancelled 3.8 Chloride Cancelled 107 Carbon Dioxide Cancelled 27 Anion Gap Cancelled 7 BUN Cancelled 12 Creatinine Cancelled 0.82 Est GFR ( Amer) Cancelled > 60 Est GFR (Non-Af Amer) Cancelled Glucose Cancelled 99 Calcium Cancelled 9.2 Total Bilirubin Cancelled 0.4 AST Cancelled 25 Alkaline Phosphatase Cancelled 52 Total Protein Cancelled 7.2 Albumin Cancelled 4.0 05/18/19 05/18/19 05/18/19 16:40 16:40 18:10 Creatine Kinase Cancelled Troponin I Cancelled < 0.012 NT-Pro-B Natriuret Pep 05/18/19 05/18/19 18:10 18:10 Creatine Kinase 531 H Troponin I NT-Pro-B Natriuret Pep 33 Impressions: Chest X-Ray 05/18/19 16:38 IMPRESSION: NO ACUTE FINDINGS. Assessment and Plan - Diagnosis (1) Acute sinusitis Qualifiers: Sinusitis location: maxillary Recurrence: not specified as recurrent Qualified Code(s): J01.00 - Acute maxillary sinusitis, unspecified Is this a current diagnosis for this admission?: Yes Plan: Flonase, chlorpheniramine, Levaquin. Follow-up CBC (2) Eosinophilic bronchitis Is this a current diagnosis for this admission?: Yes Plan: Unclear allergen, prednisone ordered and will likely require prolonged titration (3) Acute exacerbation of severe persistent extrinsic asthma Is this a current diagnosis for this admission?: Yes Plan: Education for avoidance of trigger, albuterol, Atrovent and prednisone (4) Hypertension Qualifiers: Hypertension type: essential hypertension Qualified Code(s): I10 - Essen tial (primary) hypertension Is this a current diagnosis for this admission?: Yes Plan: Hydralazine. - Time Time Spent with patient: 25-34 minutes - Inpatient Certification Medical Necessity: Need Close Monitoring Due to Risk of Patient Decompensation
[2019-05-19] MEDS: HEPARIN SOD (PORCINE) 5,000 UNIT/ML 1 ML VIAL SUBCUT SCH ×2 (05:31→14:41)
[2019-05-19] MEDS: HYDRALAZINE HCL 25 MG TABLET PO SCH ×3 (06:28→18:18)
[2019-05-19] MEDS ORDERED: INFLUENZA QUAD (6MOS+) 2019-20 VAC 0.5 ML SYR IM ONE (07:26)
[2019-05-19] MEDS: FLUTICASONE NASAL SPRAY 50 MCG/SPRY 120 SPRAY/16 GM NASL SCH (09:50)
[2019-05-19] MEDS: PREDNISONE 20 MG TABLET PO SCH ×2 (09:50→18:18)
[2019-05-19 18:51] VITALS: BP 146/87
[2019-05-19] MEDS ORDERED: LEVOFLOXACIN 750 MG/D5W RTU 750 MG/150 ML RTUPB IV SCH (22:00)
== END 2019-05-19 19:26 | disposition home or self-care (01) ==
LOC: ER 16:15 → EH 19:26 → INTOOBSV 19:26 → 3W 20:42
PROVIDERS: ADMIT Internal Medicine; ATTEND Internal Medicine
DX: J45.51 Severe persistent asthma with (acute) exacerbation (principal); J01.00 Acute maxillary sinusitis, unspecified; J40 Bronchitis, not specified as acute or chronic; I10 Essential (primary) hypertension; R94.31 Abnormal electrocardiogram [ECG] [EKG]; Z77.22 Contact with and (suspected) exposure to environmental tobacco smoke (acute) (chronic)
CPT/HCPCS: 93005; 94640 ×4; 99285; 96375; 96365; 96366; 36415; 82550; 85025; 80053; 84484; 83880; 71045; 94799; 93010; 94667; 94668; G0378 ×2; J2930; J3475; J7512 ×2; J3490 ×2; J7030; J1956; J7620 ×2

== ENCOUNTER 2019-11-09 18:21 | Emergency (ER) | payer SELFPAY ==
--- NOTE | 2019-11-09 18:45 | ER Document Report ---
ED Medical Screen (RME) - General Chief Complaint: Pelvic Pain Stated Complaint: PAINFUL URINATION,ABDOMINAL PAIN Time Seen by Provider: 11/09/19 18:40 Primary Care Provider: JAMA BOOKER MD [Primary Care Provider] - Follow up as needed Mode of Arrival: Ambulatory Information source: Patient Notes: 44-year-old female presented to ED for complaint of pelvic pain bleeding x6 months. She states she has been dizzy and nauseated this whole time 2. She states she does have a nonstop menstrual cycle. She states at times chest pain comes and goes but she is not having chest pain right now. She is a former smoker does drink wine on the weekends no use of illicit drugs. She states she works at [employer] with her significant other with a past medical h istory of asthma high blood pressure and a bilateral tubal ligation. She is alert oriented respirations regular nonlabored speaking in full sentences. We will get blood urine and an ultrasound. I have greeted and performed a rapid initial assessment of this patient. A comprehensive ED assessment and evaluation of the patient, analysis of test results and completion of medical decision making process will be conducted by an additional ED providers. TRAVEL OUTSIDE OF THE [place] IN LAST 30 DAYS: No - Related Data Allergies/Adverse Reactions: amoxicillin [Amoxicillin] Allergy (Verified 05/18/19 16:19) ketorolac [Ketorolac] Allergy (Verified 05/18/19 16:19) Past Medical History - Past Medical History Cardiac Medical History: Reports: Hx Hypertension Pulmonary Medical History: Reports: Hx Asthma Neurological Medical History: Reports: Hx Migraine Renal/ Medical History: Denies: Hx Peritoneal Dialysis Psychiatric Medical History: Reports: Hx Depression Past Surgical History: Reports: Hx Oral Surgery - dental, Hx Tonsillectomy - 1987, Hx Tubal Ligation - Immunizations Immunizations up to date: Yes Hx Diphtheria, Pertussis, Tetanus Vaccination: Yes Physical Exam - Vital signs Vitals: Temp Pulse Resp BP Pulse Ox 98.8 F 96 20 135/91 H 97 11/09/19 18:26 11/09/19 18:26 11/09/19 18:26 11/09/19 18:26 11/09/19 18:26 Course - Vital Signs Vital signs: Temp Pulse Resp BP Pulse Ox 98.8 F 96 20 135/91 H 97 11/09/19 18:26 11/09/19 18:26 11/09/19 18:26 11/09/19 18:26 11/09/19 18:26 Doctor's Discharge - Discharge Referrals: JAMA BOOKER MD [Primary Care Provider] - Follow up as needed
[2019-11-09 19:14] LABS: ABSOLUTE EOSINOPHILS # (AUTO) 0.5 10^3/uL (0.0-0.6); ABSOLUTE LYMPHOCYTES (AUTO) 1.9 10^3/uL (0.5-4.7); ABSOLUTE MONOCYTES (AUTO) 0.4 10^3/uL (0.1-1.4); ABSOLUTE NEUT (AUTO) 3.5 10^3/uL (1.7-8.2); BASOPHILS % (AUTO) 0.5 % (0-2); EOSINOPHILS % (AUTO) 7.3 % (0-6); HEMATOCRIT 39.4 % (36.0-47.0); HEMOGLOBIN 13.4 g/dL (12.0-15.5); LYMPHOCYTES % (AUTO) 30.3 % (13-45); MEAN CORPUSCULAR HEMOGLOBIN 30.7 pg (27.0-33.4); MEAN CORPUSCULAR HGB CONC 34.1 g/dL (32.0-36.0); MEAN CORPUSCULAR VOLUME 90 fl (80-97); MONOCYTES % (AUTO) 5.9 % (3-13); PLATELET COUNT 147 10^3/uL (150-450); RED BLOOD COUNT 4.37 10^6/uL (3.72-5.28); TOTAL CELLS COUNTED % (AUTO) 100 %; WHITE BLOOD COUNT 6.3 10^3/uL (4.0-10.5)
[2019-11-09 19:18] LABS: APPEARANCE,URINE SLIGHTLY-CLOUDY; BILIRUBIN,URINE NEGATIVE (NEGATIVE); COLOR,URINE YELLOW; GLUCOSE, URINE NEGATIVE (NEGATIVE); KETONES,URINE TRACE mg/dL (NEGATIVE); LEUKOCYTE ESTERASE,URINE NEGATIVE (NEGATIVE); NITRITE,URINE NEGATIVE (NEGATIVE); PROTEIN,URINE 30 mg/dL (NEGATIVE); URINE SPECIFIC GRAVITY 1.029
[2019-11-09 19:39] LABS: ALBUMIN 4.4 g/dL (3.5-5.0); ALKALINE PHOSPHATASE 52 U/L (38-126); ANION GAP 7 (5-19); ASPARTATE AMINO TRANSFERASE 21 U/L (14-36); BILIRUBIN,TOTAL 0.7 mg/dL (0.2-1.3); BLOOD UREA NITROGEN 11 mg/dL (7-20); CALCIUM 9.6 mg/dL (8.4-10.2); CARBON DIOXIDE 31 mmol/L (22-30); CHLORIDE 101 mmol/L (98-107); GLUCOSE 99 mg/dL (75-110); POTASSIUM 3.8 mmol/L (3.6-5.0); TOTAL PROTEIN 7.8 g/dL (6.3-8.2)
--- NOTE | 2019-11-09 20:06 | RADIOLOGY REPORT (SQ) ---
EXAM DESCRIPTION: U/S NON-OB PELVIS TV W/O DOP IMAGES COMPLETED DATE/TIME: 11/09/2019 6:46 pm REASON FOR STUDY: Pelvic pain vaginal bleeding x6 months. COMPARISON: None. TECHNIQUE: Dynamic and static grayscale images acquired of the pelvis via transabdominal and transva ginal approach and recorded on PACS. Additional selected color Doppler and spectral images recorded. LIMITATIONS: None. FINDINGS: UTERUS: Uterus has normal contour and position. There is a small hypoechoic fibroid in th e body myometrium measuring 1.9 x 1.3 x 2 cm. Otherwise normal appearance. ENDOMETRIAL STRIPE: The endometrium is markedly thickened measuring up to 2.1 cm thickness. Small am ount of free fluid within the endometrial canal. CERVIX: No nabothian cysts. RIGHT OVARY AND DOPPLER: The right ovary is not visualized. There is no adnexal mass. LEFT OVARY AND DOPPLER: Normal size. No worrisome masses. Normal arterial vascular flow without evid ence for torsion. FREE FLUID: None noted. OTHER: No other significant finding. MEASUREMENTS: UTERUS: 11.5 x 6.6 x 7.2 cm ENDOMETRIAL STRIPE: 21 mm RIGHT OVARY: Not visualized LEFT OVARY: 4 x 3.1 x 3.1 cm IMPRESSION: 1. Thickened endometrium with small amount of endometrial free fluid. Finding may represent endometr ial hyperplasia or neoplasm. Direct visualization and sampling is recommended. 2. Normal sonographic appearance of the left ovary. The right ovary is not visualized. 3. Small uterine leiomyoma. TECHNICAL DOCUMENTATION: JOB ID: [id number] [employer]- All Rights Reserved Rev Reading location - IP/workstation name: [email or web address]
[2019-11-09] MEDS ORDERED: MORPHINE SULFATE 10 MG/ML INJ IV ONE (20:52)
[2019-11-09] MEDS ORDERED: ONDANSETRON HCL INJ/PF 4 MG/2 ML SDV IV ONE (20:52)
--- NOTE | 2019-11-09 20:57 | ER Document Report ---
ED GI/ - General Chief Complaint: Pelvic Pain Stated Complaint: PAINFUL URINATION,ABDOMINAL PAIN Time Seen by Provider: 11/09/19 18:40 Primary Care Provider: MEG STARK MD [ACTIVE PROVISIONAL STAFF] - Follow up tomorrow (Call tomorrow for an outpatient follow-up appointment.) JAMA BOOKER MD [Primary Care Provider] - Follow up as needed Mode of Arrival: Ambulatory Information source: Patient Notes: 44-year-old female past medical history significant for hypertension, depression, migraine presents to the emergency room complaining of intermittent vaginal bleeding for the past 6 months. States it will be heavy for several days and stop for a few and then start back in again. She has not been seen for her symptoms prior to today. Patient states she did [facility] to get [facility] on [facility] but due to an insurance issue they are unable to see her. Also complaining of some lower pelvic pain. Complains of nausea but no vomiting. Does not have a time cycle operator. Also states her primary care physician cannot see her until the end of October. TRAVEL OUTSIDE OF THE [place] IN LAST 30 DAYS: No - Related Data Allergies/Adverse Reactions: amoxicillin [Amoxicillin] Allergy (Verified 05/18/19 16:19) ketorolac [Ketorolac] Allergy (Verified 05/18/19 16:19) Home Medications: hydrochlothorthiazide, losartan Past Medical History - General Information source: Patient - Social History Smoking Status: Former Smoker Frequency of alcohol use: Occasional Drug Abuse: None Family History: Arthritis, CVA, Hyperlipidemia, Hypertension, Malignancy, Thyroid Disfunction - Past Medical History Cardiac Medical History: Reports: Hx Hypertension Pulmonary Medical History: Reports: Hx Asthma Neurological Medical History: Reports: Hx Migraine Renal/ Medical History: Denies: Hx Peritoneal Dialysis Psychiatric Medical History: Reports: Hx Depression Past Surgical History: Reports: Hx Oral Surgery - dental, Hx Tonsillectomy - 1987, Hx Tubal Ligation - Immunizations Immunizations up to date: Yes Hx Diphtheria, Pertussis, Tetanus Vaccination: Yes Review of Systems - Review of Systems Constitutional: No symptoms reported Cardiovascular: No symptoms reported Respiratory: No symptoms reported Gastrointestinal: Abdominal pain Female Genitourinary: Heavy/abnormal periods Musculoskeletal: No symptoms reported Skin: No symptoms reported Neurological/Psychological: No symptoms reported -: Yes All other systems reviewed and negative Physical Exam - Vital signs Vitals: Temp Pulse Resp BP Pulse Ox 98.8 F 96 20 135/91 H 97 11/09/19 18:26 11/09/19 18:26 11/09/19 18:26 11/09/19 18:26 11/09/19 18:26 - General General appearance: Appears well, Alert In distress: Moderate - Respiratory Respiratory status: No respiratory distress Chest status: Nontender Breath sounds: Normal Chest palpation: Normal - Cardiovascular Rhythm: Regular Heart sounds: Normal auscultation Murmur: No - Abdominal Inspection: Normal Distension: No distension Bowel sounds: Normal Tenderness: Tender - Tenderness on palpation to the lower pelvic region. No guarding, no rebound, no McBurney's, no Caba's. No: McBurney's point, M urphy's sign, Guarding, Rebound Organomegaly: No organomegaly - Back Back: Normal, Nontender. No: CVA tenderness - Neurological Neuro grossly intact: Yes Cognition: Normal Orientation: AAOx4 [place] Coma Scale Eye Opening: Spontaneous [place] Coma Scale Verbal: Oriented [place] Coma Scale Motor: Obeys Commands [place] Coma Scale Total: 15 Speech: Normal Motor strength normal: LUE, RUE, LLE, RLE Sensory: Normal - Skin Skin Temperature: Warm Skin Moisture: Dry Skin Color: Normal Course - Re-evaluation Re-evalutation: 11/09/19 20:56 Reviewed with patient labs and ultrasound reports. Will get CT abdomen and pelvis as patient has been having some irregular stools as well for the past 6 months as well. Does have a family history of colon and breast cancer. No family history of uterine or ovarian cancer. Patient does not remember her last Pap smear. IV, pain medications, antiemetics, CT abdomen and pelvis with IV contrast and reevaluate. 11/09/19 22:34 Discussed all final findings with patient. Patient was stable vital signs. Stable labs. Aware that I have spoken with the on-call DELIVERY MANAGER Dr. Stark who recommends outpatient follow-up this week. She is to call the office tomorrow for an appointment. Patient was given strict return to the emergency room guidelines. Return for any new or worsening symptoms. All questions were answered. Patient verbalized understanding and agrees with plan of care. 11/09/19 23:30 - Vital Signs Vital signs: Temp Pulse Resp BP Pulse Ox 98.1 F 80 15 132/82 H 97 11/09/19 22:59 11/09/19 22:59 11/09/19 22:59 11/09/19 22:59 11/09/19 22:59 - Laboratory Result Diagrams: 11/09/19 18:45 11/09/19 18:45 Laboratory results interpreted by me: 11/09/19 11/09/19 11/09/19 18:45 18:45 18:45 RDW 15.0 H Plt Count 147 L Eos % (Auto) 7.3 H Carbon Dioxide 31 H Urine Protein 30 H Urine Ketones TRACE H Urine Blood MODERATE H Urine Urobilinogen 4.0 H Urine Ascorbic Acid 40 H - Diagnostic Test Radiology reviewed: Reports reviewed - Consults Dr. Meg Stark Time consulted: 22:34 Reason for consultation: 11/09/19 22:34 All test results were reviewed with Dr. Stark over the phone who recommends outpatient follow-up in the office this week for endometrial biopsy nothing emergent at this time. Patient with normal vital signs. Not anemic. 11/09/19 23:29 Consulted provider: follow-up in office Discharge - Discharge Clinical Impression: Dysfunctional uterine bleeding, Pelvic pain Uterine fibroid Qualifiers: Uterine leiomyoma location: unspecified location Qualified Code(s): D25.9 - Leiomyoma of uterus, unspecified Condition: Stable Disposition: HOME, SELF-CARE Instructions: Dysfunctional Uterine Bleeding ([facility]), Pelvic Pain ([facility]) Additional Instructions: Tylenol as needed for pain. Avoid all NSAIDs as they can increase her bleeding. Outpatient follow-up with DELIVERY MANAGER as discussed. Call tomorrow for an appointment. Return to the emergency room for any new or worsening symptoms. Referrals: JAMA BOOKER MD [Primary Care Provider] - Follow up as needed MEG STARK MD [ACTIVE PROVISIONAL STAFF] - Follow up tomorrow (Call tomorrow for an outpatient follow-up appointment.)
--- NOTE | 2019-11-09 22:09 | RADIOLOGY REPORT (SQ) ---
EXAM DESCRIPTION: CT ABDOMEN PELVIS WITH IV CONTRAST COMPLETED DATE/TME: 11/09/2019 20:52 CLINICAL HISTORY: 44 years, Female, abdominal pain COMPARISON: Ultrasound today's date. CT 02/04/2015 TECHNIQUE: 388 Images stored on PACS. All CT scanners at this facility use dose modulation, iterative reconstruction, and/or weight based dosing when appropriate to reduce radiation dose to as low as reasonably achievable (ALARA). [facility]: Dose Right [facility]: CareDose [facility]: Dose Right [facility]: Teradose 4D [facility]: [employer] LIMITATIONS: None. FINDINGS: The visualized lung bases are unremarkable. Osseous structures are grossly intact. Fatty infiltrative change to the liver. The spleen, adrenal glands, pancreas, kidneys are unremarkable. Subcentimeter hypodensity in the lateral right hepatic lobe, too small to further characterize but likely small cyst or hemangioma in the absence of cancer history. The gallbladder is contracted. No gross evidence for bowel obstruction. Large amount of stool in the colon. No free air or free fluid. Normal appendix. Fluid in the endometrial canal. IMPRESSION: No acute intra-abdominal/pelvic process. Fatty infiltrative change to the liver. Small hypodensity in the lateral right hepatic lobe likely cyst or hemangioma. Abundant stool in the colon. Normal appendix. TECHNICAL DOCUMENTATION: Quality ID # [id number]: Final reports with documentation of one or more dose reduction techniques (e.g., Automated exposure control, adjustment of the mA and/or kV according to patient size, use of iterative reconstruction technique) copyright 2011 [employer]- All Rights Reserved
[2019-11-09 23:00] VITALS: BP 132/82
== END 2019-11-09 23:00 | disposition home or self-care (01) ==
LOC: ER 18:21
DX: N93.8 Other specified abnormal uterine and vaginal bleeding (principal); D25.9 Leiomyoma of uterus, unspecified; R10.2 Pelvic and perineal pain; R19.4 Change in bowel habit; R93.89 Abnormal findings on diagnostic imaging of other specified body structures; R11.0 Nausea; I10 Essential (primary) hypertension; J45.909 Unspecified asthma, uncomplicated; Z79.899 Other long term (current) drug therapy; Z87.891 Personal history of nicotine dependence; Z88.0 Allergy status to penicillin; Z88.8 Allergy status to other drugs, medicaments and biological substances; Z80.0 Family history of malignant neoplasm of digestive organs; Z80.3 Family history of malignant neoplasm of breast
CPT/HCPCS: 99284; 96374; 96375; 36415; 87086; 84702; 83690; 85025; 80053; 81001; 76830; 74177; J2270; J2405

== ENCOUNTER 2019-11-22 05:35 | Emergency (ER) | payer OTHER ==
[2019-11-22] MEDS ORDERED: ALBUTEROL SULFATE 0.083% NEB 2.5 MG/3 ML AMPUL NEB ONE (05:57)
[2019-11-22] MEDS ORDERED: METHYLPREDNISOLONE INJ 125 MG/2 ML SDV IV ONE (07:45)
[2019-11-22] MEDS ORDERED: NORMAL SALINE 500 ML IV ONE (07:46)
[2019-11-22] MEDS: MAGNESIUM SULFATE/D5W 1 GM/100 ML RTUPB IV SCH ×2 (08:14→09:14)
--- NOTE | 2019-11-22 08:32 | RADIOLOGY REPORT (SQ) ---
EXAM DESCRIPTION: CHEST SINGLE VIEW IMAGES COMPLETED DATE/TIME: 11/22/2019 7:11 am REASON FOR STUDY: cough COMPARISON: 05/18/2019 EXAM PARAMETERS: NUMBER OF VIEWS: One view. TECHNIQUE: Single frontal radiographic view of the chest acquired. RADIATION DOSE: NA LIMITATIONS: None. FINDINGS: LUNGS AND PLEURA: No opacities, masses or pneumothorax. No pleural effusion. MEDIASTINUM AND HILAR STRUCTURES: No masses. Contour normal. HEART AND VASCULAR STRUCTURES: Heart normal in size. Normal vasculature. BONES: No acute findings. HARDWARE: None in the chest. OTHER: No other significant finding. IMPRESSION: NO ACUTE RADIOGRAPHIC FINDING IN THE CHEST. TECHNICAL DOCUMENTATION: JOB ID: [id number] 2010 [employer]- All Rights Reserved Reading location - IP/workstation name: [email or web address]
[2019-11-22 08:48] LABS: ABSOLUTE BASOPHILS # (AUTO) 0.1 10^3/uL (0.0-0.2); ABSOLUTE EOSINOPHILS # (AUTO) 0.7 10^3/uL (0.0-0.6); ABSOLUTE LYMPHOCYTES (AUTO) 1.2 10^3/uL (0.5-4.7); ABSOLUTE MONOCYTES (AUTO) 0.4 10^3/uL (0.1-1.4); ABSOLUTE NEUT (AUTO) 3.8 10^3/uL (1.7-8.2); EOSINOPHILS % (AUTO) 11.3 % (0-6); HEMOGLOBIN 12.3 g/dL (12.0-15.5); LYMPHOCYTES % (AUTO) 19.5 % (13-45); MEAN CORPUSCULAR HEMOGLOBIN 30.1 pg (27.0-33.4); MEAN CORPUSCULAR HGB CONC 33.2 g/dL (32.0-36.0); MEAN CORPUSCULAR VOLUME 91 fl (80-97); MONOCYTES % (AUTO) 6.7 % (3-13); PLATELET COUNT 142 10^3/uL (150-450); RED BLOOD COUNT 4.08 10^6/uL (3.72-5.28); RED CELL DISTRIBUTION WIDTH 15.5 % (11.5-14.0); SEGMENTED NEUTROPHILS % (AUTO) 61.5 % (42-78); TOTAL CELLS COUNTED % (AUTO) 100 %; WHITE BLOOD COUNT 6.1 10^3/uL (4.0-10.5)
[2019-11-22 09:05] LABS: ALBUMIN 3.8 g/dL (3.5-5.0); ALKALINE PHOSPHATASE 44 U/L (38-126); ANION GAP 8 (5-19); ASPARTATE AMINO TRANSFERASE 23 U/L (14-36); BILIRUBIN,DIRECT 0.1 mg/dL (0.0-0.4); BILIRUBIN,TOTAL 0.5 mg/dL (0.2-1.3); BLOOD UREA NITROGEN 11 mg/dL (7-20); CALCIUM 8.6 mg/dL (8.4-10.2); CARBON DIOXIDE 26 mmol/L (22-30); CHLORIDE 107 mmol/L (98-107); GLUCOSE 94 mg/dL (75-110); POTASSIUM 3.6 mmol/L (3.6-5.0)
--- NOTE | 2019-11-22 10:59 | ER Document Report ---
Entered by LION DE LA TORRE SCRIBE 11/22/19 0746 Acting as scribe for:CRISTI RHODES MD ED Respiratory Problem - General Chief Complaint: Shortness Of Breath Stated Complaint: COUGH Time Seen by Provider: 11/22/19 06:36 Primary Care Provider: JAMA BOOKER MD [Primary Care Provider] - Follow up as needed Mode of Arrival: Ambulatory Information source: Patient Notes: This 44-year-old female patient presents to the emergency department today with complaints of "my asthma is acting up". Patient reports that she has had intermittent shortness of breath with a cough that is productive with clear sputum. She reports that she is out of her pro-air inhaler but she does have Advair left. Patient was COVID tested x1 week ago at [facility] and it was negative. Patient states she was tested then because she had had a cough for 2 weeks. She denies any leg swelling or chest pain. TRAVEL OUTSIDE OF THE [place] IN LAST 30 DAYS: No - Related Data Allergies/Adverse Reactions: amoxicillin [Amoxicillin] Allergy (Verified 05/18/19 16:19) ketorolac [Ketorolac] Allergy (Verified 05/18/19 16:19) Home Medications: pro-air Past Medical History - General Information source: Patient - Social History Smoking Status: Never Smoker Cigarette use (# per day): No Frequency of alcohol use: None Drug Abuse: None Lives with: Family Family History: Reviewed & Not Pertinent, Arthritis, CVA, Hyperlipidemia, Hyp ertension, Malignancy, Thyroid Disfunction Patient has homicidal ideation: No - Past Medical History Cardiac Medical History: Reports: Hx Hypertension Pulmonary Medical History: Reports: Hx Asthma Neurological Medical History: Reports: Hx Migraine Psychiatric Medical History: Reports: Hx Depression Past Surgical History: Reports: Hx Oral Surgery, Hx Tonsillectomy - 1987, Hx Tubal Ligation - Immunizations Immunizations up to date: Yes Hx Diphtheria, Pertussis, Tetanus Vaccination: Yes Review of Systems - Review of Systems Constitutional: No symptoms reported EENT: See HPI, Throat pain Cardiovascular: No symptoms reported Respiratory: See HPI, Cough, Wheezing Gastrointestinal: No symptoms reported Genitourinary: No symptoms reported Female Genitourinary: No symptoms reported Musculoskeletal: No symptoms reported Skin: No symptoms reported Hematologic/Lymphatic: No symptoms reported Neurological/Psychological: No symptoms reported -: Yes All other systems reviewed and negative Physical Exam - Vital signs Vitals: Temp Pulse Resp BP Pulse Ox 98.3 F 101 H 20 138/81 H 100 11/22/19 06:05 11/22/19 06:05 11/22/19 06:05 11/22/19 06:05 11/22/19 06:05 - Notes Notes: Physical Exam: General: Alert, appears well. HEENT: Normocephalic. Atraumatic. PERRL. Extraocular movements intact. Oroph arynx clear. Postnasal drainage. Neck: Supple. Non-tender. Respiratory: No respiratory distress. Expiratory wheezing bilaterally. Cardiovascular: Regular rate and rhythm. Abdominal: Normal Inspection. Non-tender. No distension. Normal Bowel Sounds. Back: No gross abnormalities. Extremities: Moves all four extremities. Upper extremities: Normal inspection. Normal ROM. Lower extremities: Normal inspection. No edema. Normal ROM. Neurological: Normal cognition. AAOx4. Normal speech. Psychological: Normal affect. Normal Mood. Skin: Warm. Dry. Normal color. Course - Re-evaluation Re-evalutation: 11/22/19 10:54 Patient resting comfortably not showing any signs of distress with breathing at this time. - Vital Signs Vital signs: Temp Pulse Resp BP Pulse Ox 98.3 F 101 H 20 138/89 H 99 11/22/19 06:05 11/22/19 06:05 11/22/19 06:05 11/22/19 10:01 11/22/19 10:01 11/22/19 10:54 Afebrile pulse 101 blood pressure stable pulse ox 99% - Laboratory Result Diagrams: 11/22/19 08:22 11/22/19 08:22 Laboratory results interpreted by me: 11/22/19 08:22 RDW 15.5 H Plt Count 142 L Eos % (Auto) 11.3 H Absolute Eos (auto) 0.7 H 11/22/19 10:55 Laboratories essentially within normal limits. Platelet count 142 and a high eosinophil count consistent with allergies and asthma. - Diagnostic Test Radiology reviewed: Image reviewed, Reports reviewed Radiology results interpreted by me: 11/22/19 10:55 Chest x-ray shows no infiltrate no other acute process noted. Discharge - Discharge Clinical Impression: Acute exacerbation of severe persistent extrinsic asthma, Eosinophilic bronchitis Condition: Stable Disposition: HOME, SELF-CARE Prescriptions: Albuterol Sulfate [Albuterol Sulfate Hfa] 8.5 gm IH QID PRN 30 Days #1 [id number] PRN Reason: For Wheezing Methylprednisolone [Medrol Dosepack (4 mg/Tab) 21 Tab/Dosepak] 4 mg PO ASDIR PRN #21 tab.[id number] PRN Reason: Referrals: JAMA BOOKER MD [Primary Care Provider] - Follow up as needed I personally performed the services described in the documentation, reviewed and edited the documentation which was dictated to the scribe in my presence, and it accurately records my words and actions.
[2019-11-22 11:21] VITALS: BP 136/92
== END 2019-11-22 11:22 | disposition home or self-care (01) ==
LOC: ER 05:35
DX: J45.51 Severe persistent asthma with (acute) exacerbation (principal); R06.02 Shortness of breath; R05 Cough; R07.0 Pain in throat; I10 Essential (primary) hypertension; Z88.0 Allergy status to penicillin; Z88.8 Allergy status to other drugs, medicaments and biological substances; Z79.899 Other long term (current) drug therapy; R09.82 Postnasal drip
CPT/HCPCS: 94640; 99284; 96375; 96365; 96366; 36415; 85025; 80053; 71045; J2930; J3475; J7040

== ENCOUNTER 2019-12-31 09:49 | Emergency (ER) | payer OTHER ==
--- NOTE | 2019-12-31 10:39 | ER Document Report ---
ED General - General Chief Complaint: Cold Symptoms Stated Complaint: COUGH,SORE THROAT,FEVER Time Seen by Provider: 12/31/19 10:36 Primary Care Provider: JAMA BOOKER MD [HONORARY] - Follow up as needed Mode of Arrival: Ambulatory Information source: Patient Notes: Patient is a well-appearing 44-year-old female presenting to the emergency department with concern for cold symptoms. Patient reports a one-week history of cough, wheezing, sore throat, body aches, diarrhea, and fever. Patient reports a home temperature of 102.1, reports taking Tylenol this morning prior to arrival. Patient denies abdominal pain, urinary concerns, weakness, and change in appetite. Patient reports her father tested positive for COVID-19 2 weeks ago. Patient works at [employer], reporting that a coworker has tested positive for COVID-19. TRAVEL OUTSIDE OF THE [place] IN LAST 30 DAYS: No - Related Data Allergies/Adverse Reactions: amoxicillin [Amoxicillin] Allergy (Verified 05/18/19 16:19) ketorolac [Ketorolac] Allergy (Verified 05/18/19 16:19) Past Medical History - General Information source: Patient - Social History Smoking Status: Former Smoker Drug Abuse: None Family History: Reviewed & Not Pertinent, Arthritis, CVA, Hyperlipidemia, Hypertension, Malignancy, Thyroid Disfunction - Past Medical History Cardiac Medical History: Reports: Hx Hypertension Pulmonary Medical History: Reports: Hx Asthma Neurological Medical History: Reports: Hx Migraine Renal/ Medical History: Denies: Hx Peritoneal Dialysis Psychiatric Medical History: Reports: Hx Anxiety, Hx Depression Past Surgical History: Reports: Hx Oral Surgery, Hx Tonsillectomy - 1987, Hx Tubal Ligation - Immunizations Immunizations up to date: Yes Hx Diphtheria, Pertussis, Tetanus Vaccination: Yes Review of Systems - Review of Systems Constitutional: See HPI EENT: See HPI Cardiovascular: No symptoms reported Respiratory: See HPI Gastrointestinal: See HPI Genitourinary: No symptoms reported Female Genitourinary: No symptoms reported Musculoskeletal: See HPI Skin: No symptoms reported Hematologic/Lymphatic: No symptoms reported Neurological/Psychological: No symptoms reported Physical Exam - Vital signs Vitals: Temp Pulse Resp BP Pulse Ox 97.9 F 81 16 141/81 H 99 12/31/19 09:57 12/31/19 09:57 12/31/19 09:57 12/31/19 09:57 12/31/19 09:57 - Notes Notes: PHYSICAL EXAMINATION: GENERAL: Well-appearing, well-nourished and in no acute distress. HEAD: Atraumatic, normocephalic. EYES: Pupils equal round and reactive to light, extraocular movements intact, conjunctiva are normal. ENT: Nares patent, oropharynx clear without exudates. Uvula midline, airway patent. Moist mucous membranes. TMs normal, ear canals are normal. NECK: Normal range of motion, supple without lymphadenopathy LUNGS: Breath sounds clear to auscultation bilaterally and equal. No wheezes rales or rhonchi. HEART: Regular rate and rhythm without murmurs ABDOMEN: Soft, nontender, nondistended abdomen. No guarding, no rebound. No masses appreciated. Female : deferred Musculoskeletal: Normal range of motion, no pitting or edema. No cyanosis. NEUROLOGICAL: Cranial nerves grossly intact. Normal speech, normal gait. Normal sensory, motor exams PSYCH: Normal mood, normal affect. SKIN: Warm, Dry, normal turgor, no rashes or lesions noted. Course - Re-evaluation Re-evalutation: Patient is well-appearing, nontoxic. Vital signs reviewed, within normal limits. Rapid flu and strep negative today. COVID-19 testing remains pending. Patient encouraged to quarantine until results are discussed with her. Patient encouraged to follow-up with primary care provider as needed and ED return criteria discussed. - Vital Signs Vital signs: Temp Pulse Resp BP Pulse Ox 97.9 F 81 16 141/81 H 99 12/31/19 09:57 12/31/19 09:57 12/31/19 09:57 12/31/19 09:57 12/31/19 09:57 Discharge - Discharge Clinical Impression: Viral illness, Encounter for laboratory testing for COVID-19 virus Condition: Stable Disposition: HOME, SELF-CARE Additional Instructions: Viral Syndrome The physician has diagnosed a viral infection. Viruses not only cause "colds," but can cause many different symptoms including generalized aching, f ever, headache, cough, diarrhea, nausea, vomiting, and fatigue. The treatment, for the most part, is simply relief of symptoms. This means that antibiotics are usually not given. Rest, fluids, pain medications and, occasionally, medication for the specific symptoms that are most bothersome will be prescribed. Use good handwashing to avoid passing the virus to others. Shared toys should be cleaned with disinfectant. Clean the toilets, sinks, and counter surfaces in bathrooms. Launder clothing in hot water. Contact the physician if you develop any new or unusual symptoms such as severe headache, stiff neck, high fever, chest pain, productive cough, or shortness of breath. You should be rechecked if you don't see marked improvement within seven to 10 days. Your COVID-19 test is pending at this time. Please quarantine self until results have been relayed to you. Push fluids. Get plenty of rest. Tylenol or Motrin for fever and body aches. Good handwashing and stay away from others. Follow-up with primary care provider in the next 2 to 3 days for reevaluation as needed. Return to the emergency department with any new or worsening symptoms such as difficulty breathing, or any other worsening symptoms. Forms: Return to Work Referrals: JAMA BOOKER MD [HONORARY] - Follow up as needed
[2019-12-31 12:03] LABS: A TYPE INFLUENZA AG NEGATIVE (NEGATIVE); B INFLUENZA AG NEGATIVE (NEGATIVE)
[2019-12-31 12:52] VITALS: BP 146/84
== END 2019-12-31 12:52 | disposition home or self-care (01) ==
LOC: ER 09:49
DX: B34.9 Viral infection, unspecified (principal); R05 Cough; J02.9 Acute pharyngitis, unspecified; R19.7 Diarrhea, unspecified; R50.9 Fever, unspecified; I10 Essential (primary) hypertension; J45.909 Unspecified asthma, uncomplicated; Z87.891 Personal history of nicotine dependence; Z88.0 Allergy status to penicillin; Z88.8 Allergy status to other drugs, medicaments and biological substances; Z20.828 Contact with and (suspected) exposure to other viral communicable diseases
CPT/HCPCS: 99283; 87070; 87880; 87635; 87804; C9803

== ENCOUNTER 2020-01-29 02:41 | Emergency (ER) | payer OTHER ==
[2020-01-29] MEDS ORDERED: IPRATROPIUM/ALBUTEROL 0.5-2.5 MG/3 ML AMPUL NEB ONE ×2 (02:50→04:17)
[2020-01-29] MEDS: ALBUTEROL SULFATE 0.083% NEB 2.5 MG/3 ML AMPUL NEB SCH ×2 (02:54→03:54)
[2020-01-29] MEDS ORDERED: METHYLPREDNISOLONE INJ 125 MG/2 ML SDV IV ONE (03:12)
[2020-01-29 03:58] LABS: ABSOLUTE BASOPHILS # (AUTO) 0.1 10^3/uL (0.0-0.2); ABSOLUTE EOSINOPHILS # (AUTO) 1.1 10^3/uL (0.0-0.6); ABSOLUTE MONOCYTES (AUTO) 0.4 10^3/uL (0.1-1.4); BASOPHILS % (AUTO) 1.1 % (0-2); EOSINOPHILS % (AUTO) 12.5 % (0-6); HEMATOCRIT 38.2 % (36.0-47.0); HEMOGLOBIN 12.8 g/dL (12.0-15.5); LYMPHOCYTES % (AUTO) 23.6 % (13-45); MEAN CORPUSCULAR HGB CONC 33.5 g/dL (32.0-36.0); MEAN CORPUSCULAR VOLUME 89 fl (80-97); MONOCYTES % (AUTO) 4.2 % (3-13); PLATELET COUNT 162 10^3/uL (150-450); RED BLOOD COUNT 4.27 10^6/uL (3.72-5.28); RED CELL DISTRIBUTION WIDTH 14.9 % (11.5-14.0); SEGMENTED NEUTROPHILS % (AUTO) 58.6 % (42-78); TOTAL CELLS COUNTED % (AUTO) 100 %; WHITE BLOOD COUNT 8.6 10^3/uL (4.0-10.5)
[2020-01-29 04:01] LABS: VENOUS BLOOD BASE EXCESS 2.9 mmol/L; VENOUS BLOOD HCO3 29.5 mmol/L (20-32); VENOUS BLOOD PCO2 54.2 mmHg (35-63); VENOUS BLOOD PH 7.35 (7.30-7.42)
--- NOTE | 2020-01-29 04:01 | RADIOLOGY REPORT (SQ) ---
EXAM DESCRIPTION: X-ray single view chest. CLINICAL HISTORY: 44 years Female, sob asthma 2w COMPARISON: 11/22/2019 TECHNIQUE: Single portable x-ray view of the chest performed on 01/29/2020 at 3:23 AM FINDINGS: The lungs are well expanded and are clear. There is no evidence of a pneumothorax. The cardiac silhouette is normal in size and configuration. The mediastinal contours are normal. No acute osseous abnormality is identified. No focal soft tissue abnormalities are seen. Lines and tubes: None. IMPRESSION: No evidence of acute intrathoracic disease.
[2020-01-29 04:14] LABS: ALBUMIN 4.8 g/dL (3.5-5.0); ALKALINE PHOSPHATASE 62 U/L (38-126); ANION GAP 11 (5-19); ASPARTATE AMINO TRANSFERASE 65 U/L (14-36); BILIRUBIN,DIRECT 0.2 mg/dL (0.0-0.4); BILIRUBIN,TOTAL 0.7 mg/dL (0.2-1.3); BLOOD UREA NITROGEN 15 mg/dL (7-20); CALCIUM 9.9 mg/dL (8.4-10.2); CARBON DIOXIDE 30 mmol/L (22-30); CHLORIDE 99 mmol/L (98-107); GLUCOSE 108 mg/dL (75-110); POTASSIUM 3.5 mmol/L (3.6-5.0); TOTAL PROTEIN 8.3 g/dL (6.3-8.2)
--- NOTE | 2020-01-29 04:34 | ER Document Report ---
ED General - General Chief Complaint: Asthma Exacerbation Stated Complaint: POSSIBLE ASTHMA ATTACK Notes: 44-year-old female history of asthma presents with approximately 2 weeks of gradual onset gradually worsening shortness of breath associated with dry cough similar to prior asthma exacerbations. Patient saw outside doctor earlier and was started on albuterol which she has taken a few times a day which provides temporary relief of symptoms but then they returned. Patient denies any fever, cardiac history, syncope, chest pain, lower extremity edema TRAVEL OUTSIDE OF THE [place] IN LAST 30 DAYS: No - Related Data Allergies/Adverse Reactions: amoxicillin [Amoxicillin] Allergy (Verified 05/18/19 16:19) ketorolac [Ketorolac] Allergy (Verified 05/18/19 16:19) Home Medications: proair inhaler Past Medical History - General Information source: Patient - Social History Smoking Status: Never Smoker Family History: Reviewed & Not Pertinent, Arthritis, CVA, Hyperlipidemia, Hypertension, Malignancy, Thyroid Disfunction Patient has homicidal ideation: No - Past Medical History Cardiac Medical History: Reports: Hx Hypertension Pulmonary Medical History: Reports: Hx Asthma Neurological Medical History: Reports: Hx Migraine Renal/ Medical History: Denies: Hx Peritoneal Dialysis Psychiatric Medical History: Reports: Hx Anxiety, Hx Depression Past Surgical History: Reports: Hx Oral Surgery, Hx Tonsillectomy - 1987, Hx Tubal Ligation - Immunizations Immunizations up to date: Yes Hx Diphtheria, Pertussis, Tetanus Vaccination: Yes Review of Systems - Review of Systems Notes: REVIEW OF SYSTEMS: CONSTITUTIONAL : Denies fever, chills, or sweats. EENT: Denies recent cold/sinus symptoms, denies throat pain CARDIOVASCULAR: Denies chest pain, NALDO RESPIRATORY: +cough, +shortness of breath. GASTROINTESTINAL: Denies abdominal pain, nausea/vomiting. GENITOURINARY: Denies difficulty urinating, painful urination. MUSCULOSKELETAL: Denies neck pain, back pain. SKIN: Denies rash or skin lesions. HEMATOLOGIC : Denies easy bruising or bleeding. LYMPHATIC: Denies swollen, enlarged glands. NEUROLOGICAL: Denies headache, denies change in gait. PSYCHIATRIC: Denies anxiety or stress or depression. Physical Exam - Vital signs Vitals: Resp BP Pulse Ox 20 141/94 H 96 01/29/20 02:46 01/29/20 02:46 01/29/20 02:46 - Notes Notes: PHYSICAL EXAMINATION: GENERAL: Well-nourished, uncomfortable appearing middle-aged woman appearing younger than stated age HEAD: Atraumatic, normocephalic. EYES: Pupils equal round and appropriate constriction, sclera anicteric, conjunctiva are normal. ENT: nares patent, moist mucous membranes. NECK: Normal range of motion, supple without lymphadenopathy LUNGS: Tachypneic, mild accessory muscle use, decreased air movement bilaterally, expiratory wheezing bilaterally HEART: Regular rate and rhythm without murmurs ABDOMEN: Soft, nontender, no guarding, no masses, no CVAT EXTREMITIES: Normal range of motion, no pitting or edema. No cyanosis. NEUROLOGICAL: Awake, alert, conversing appropriately, moves all extremities spontaneously. PSYCH: Normal mood, normal affect. SKIN: Warm, Dry, normal turgor, no rashes or lesions noted. Course - Re-evaluation Re-evalutation: 01/29/20 07:16 Patient initially with significant tachypnea and decreased air movement with wheezing consistent with asthma exacerbation. Rule out COVID-19, pneumonia. Patient dramatically improved after nebs and steroids, currently on exam patient has bilateral expiratory wheezing with good air movement, normal respiratory rate, normal oxygen saturation, and is now smiling with relief that her symptoms have improved and is extremely thankful for feeling so much better. Patient h as no pneumonia on x-ray, presentation not consistent with cardiac etiology, instructed patient to quarantine pending COVID-19. Patient ready for DC with standing albuterol, steroids, and close PCP follow-up. Gave patient extensive return to ED precautions which she demonstrated understanding of. 01/29/20 07:25 The patient was evaluated during the global COVID-19 pandemic and that diagnosis was suspected/considered upon their initial presentation. Their evaluation, treatment and testing was consistent with current guidelines for patients who present with complaints or symptoms that may be related to COVID-19. - Vital Signs Vital signs: Temp Pulse Resp BP Pulse Ox 98.5 F 97 22 H 135/79 H 98 01/29/20 06:58 01/29/20 03:03 01/29/20 08:01 01/29/20 08:00 01/29/20 08:01 - Laboratory Result Diagrams: 01/29/20 03:40 01/29/20 03:40 Laboratory results interpreted by me: 10/29/20 10/29/20 03:40 03:40 RDW 14.9 H Eos % (Auto) 12.5 H Absolute Eos (auto) 1.1 H Potassium 3.5 L AST 65 H ALT 129 H Total Protein 8.3 H Discharge - Discharge Clinical Impression: Asthma exacerbation Qualifiers: Asthma severity: moderate Asthma persistence: unspecified Qualified Code(s): J45.901 - Unspecified asthma with (acute) exacerbation Disposition: HOME, SELF-CARE Additional Instructions: Asthma You have been diagnosed as having asthma. This is a condition where there is episodic tightness in the bronchial tubes. Allergies, infections, and polluted or cold air may be contributing factors. Emergency treatment of a severe asthma attack may include adrenaline shots, or bronchodilator aerosol. You may feel lightheaded, have a decreased exercise tolerance and a rapid pulse for an hour or two. Rest and get plenty of fluids. Home treatment of asthma requires bronchodilator drugs. These can be administered by injection, inhalation, or by mouth. Antibiotics and corticosteroids may be required for some patients. You should avoid chemical fumes, dusts, pollens, and exercising in very cold or dry air. If you smoke, stop!! If you develop a fever, increased wheezing, chest pain, or severe shortness of breath, you should contact the doctor immediately Follow-up with your primary doctor within 3 days. Take albuterol every 4 hours over the next 4 days. Take prednisone daily starting tomorrow. If you have any worsening symptoms return to the emergency department immediately. Patient was provided with discharge information including: As a person under investigation for Covid 19, the [place] department of Health and Human Services, division of public health advises you to adhere to the following guidance until your test results are reported to you. If your test result is positive, you will receive additional information from your provider and your local health department at that time. Remain at home until you are cleared by the health provider or public health authorities. Keep a log of visitors to your home, notify any visitors to your home of your isolation status. If you plan to move to a new address or leave the county, notify the local health department in your County. Call your doctor or seek care if you have an urgent medical need. Before seeking medical care, call ahead to get instructions from the provider before arriving at the medical office clinic or hospital. Notify them that you are being tested for the virus that causes Covid 19 so that arrangements can be made, as necessary, to prevent transmission to others in the healthcare setting. Next, notify the local health department in your county. If a medical emergency arises and you need to call 911, inform the first responders that you are being tested for the virus that causes Covid 19. Next, notify the local health department in your county. Prescriptions: Prednisone [Deltasone 20 mg Tablet] 2 tab PO DAILY 4 Days #8 tablet Albuterol Sulfate [Proair HFA Inhalation Aerosol 8.5 gm MDI] 2 puff IH Q4H PRN #1 mdi PRN Reason:
[2020-01-29 08:11] VITALS: BP 135/79
== END 2020-01-29 08:11 | disposition home or self-care (01) ==
LOC: ER 02:41
DX: J45.901 Unspecified asthma with (acute) exacerbation (principal); R05 Cough; I10 Essential (primary) hypertension; Z79.899 Other long term (current) drug therapy; Z88.0 Allergy status to penicillin; Z88.8 Allergy status to other drugs, medicaments and biological substances; Z20.828 Contact with and (suspected) exposure to other viral communicable diseases
CPT/HCPCS: 94640 ×2; 99285; 96374; 36415; 84703; 85025; 87635; 80053; 82803; 71045; J2930; J7613; C9803

== ENCOUNTER 2020-04-05 11:55 | Emergency (ER) | payer OTHER, SELFPAY ==
--- NOTE | 2020-04-05 13:35 | ER Document Report ---
ED Medical Screen (RME) - General Chief Complaint: Vaginal Discharge Stated Complaint: ABDOMINAL PAIN,VAGINAL DISCHARGE Time Seen by Provider: 04/05/20 13:27 Mode of Arrival: Ambulatory Information source: Patient TRAVEL OUTSIDE OF THE [place] IN LAST 30 DAYS: No - HPI Patient complains to provider of: Lower abdominal pain, vaginal discharge Notes: 04/05/20 13:31 Patient here with complaints of some lower abdominal pain/suprapubic pain with some vaginal discharge. The patient states she had a hysterectomy on March 08 and started having intercourse before she was supposed to. She now has a foul- smelling vaginal odor and vaginal pain. She denies any vaginal bleeding. No fever. No nausea, vomiting, diarrhea. 04/05/20 13:34 Lungs clear and equal throughout. Heart sounds normal. Minimal suprapubic tenderness on limited triage abdominal exam. An initial examination was made on the patient as part of the triage process, and it was determined a more comprehensive evaluation was necessary. Initial labs were ordered and patient was transferred to another provider in the ED who assumed care and finished evaluation and plan. - Related Data Allergies/Adverse Reactions: amoxicillin [Amoxicillin] Allergy (Verified 05/18/19 16:19) ketorolac [Ketorolac] Allergy (Verified 05/18/19 16:19) Home Medications: HCTZ, Lexapro, Losartan Past Medical History - Past Medical History Cardiac Medical History: Reports: Hx Hypertension Pulmonary Medical History: Reports: Hx Asthma Neurological Medical History: Reports: Hx Migraine Renal/ Medical History: Denies: Hx Peritoneal Dialysis Psychiatric Medical History: Reports: Hx Anxiety, Hx Depression Past Surgical History: Reports: Hx Oral Surgery, Hx Tonsillectomy - 1987, Hx Tubal Ligation - Immunizations Immunizations up to date: Yes Hx Diphtheria, Pertussis, Tetanus Vaccination: Yes Physical Exam - Vital signs Vitals: Temp Pulse Resp BP Pulse Ox 98.7 F 87 18 136/78 H 100 04/05/20 12:51 04/05/20 12:51 04/05/20 12:51 04/05/20 12:51 04/05/20 12:51 - Notes Notes: G Course - Vital Signs Vital signs: Temp Pulse Resp BP Pulse Ox 98.7 F 87 18 136/78 H 100 04/05/20 12:51 04/05/20 12:51 04/05/20 12:51 04/05/20 12:51 04/05/20 12:51
[2020-04-05 13:56] LABS: APPEARANCE,URINE SLIGHTLY-CLOUDY; BILIRUBIN,URINE NEGATIVE (NEGATIVE); COLOR,URINE YELLOW; GLUCOSE, URINE NEGATIVE (NEGATIVE); KETONES,URINE NEGATIVE (NEGATIVE); PROTEIN,URINE NEGATIVE (NEGATIVE); URINE SPECIFIC GRAVITY 1.017; UROBILINOGEN,URINE NEGATIVE mg/dL (<2.0)
[2020-04-05 15:02] LABS: BACTERIA (WET MOUNT) 4+ BACTERIA SEEN; EPITHELIALS (WET MOUNT) 3+ EPITHELIALS SEEN; T.VAGINALIS (WET MOUNT) NO TRICHOMONAS SEEN; WBCS (WET MOUNT) FEW WBCS SEEN; YEAST (WET MOUNT) YEAST SEEN
[2020-04-05 15:16] LABS: CHLAM PCR NOT DETECTED (NOT DETECT)
--- NOTE | 2020-04-05 17:11 | ER Document Report ---
ED GI/ - General Chief Complaint: Vaginal Discharge Stated Complaint: ABDOMINAL PAIN,VAGINAL DISCHARGE Time Seen by Provider: 04/05/20 13:27 Mode of Arrival: Ambulatory Information source: Patient TRAVEL OUTSIDE OF THE [place] IN LAST 30 DAYS: No - HPI Patient complains to provider of: Vaginal discharge Notes: 04/05/20 17:07 Patient here with complaints of some lower abdominal pain/suprapubic pain with some vaginal discharge. The patient states she had a hysterectomy on March 08 and started having intercourse before she was supposed to. She now has a foul- smelling vaginal odor and vaginal pain. She denies any vaginal bleeding. No fever. No nausea, vomiting, diarrhea. No chest pain or shortness of breath. No rash. Nothing makes symptoms better or worse. Pain is mild. Pain is constant. No other complaints. - Related Data Allergies/Adverse Reactions: amoxicillin [Amoxicillin] Allergy (Verified 05/18/19 16:19) ketorolac [Ketorolac] Allergy (Verified 05/18/19 16:19) Home Medications: HCTZ, Lexapro, Losartan Past Medical History - General Information source: Patient - Social History Smoking Status: Unknown if Ever Smoked Family History: Reviewed & Not Pertinent, Arthritis, CVA, Hyperlipidemia, Hypertension, Malignancy, Thyroid Disfunction - Past Medical History Cardiac Medical History: Reports: Hx Hypertension Pulmonary Medical History: Reports: Hx Asthma Neurological Medical History: Reports: Hx Migraine Renal/ Medical History: Denies: Hx Peritoneal Dialysis Psychiatric Medical History: Reports: Hx Anxiety, Hx Depression Past Surgical History: Reports: Hx Oral Surgery, Hx Tonsillectomy - 1987, Hx Tubal Ligation - Immunizations Immunizations up to date: Yes Hx Diphtheria, Pertussis, Tetanus Vaccination: Yes Review of Systems - Review of Systems -: Yes All other systems reviewed and negative Physical Exam - Vital signs Vitals: Temp Pulse Resp BP Pulse Ox 98.7 F 87 18 136/78 H 100 04/05/20 12:51 04/05/20 12:51 04/05/20 12:51 04/05/20 12:51 04/05/20 12:51 - Notes Notes: GENERAL: alert, cooperative, nontoxic, no distress. HEAD: normocephalic, atraumatic EYES: conjunctiva pink without discharge, no external redness or swelling. EARS: no external swelling, no external redness NOSE: atraumatic, no external swelling MOUTH/THROAT: mucous membranes moist and pink, posterior pharynx without erythema, swelling, exudate. No trismus or drooling. NECK: soft, supple, full range of motion, no meningismus. CHEST: no distress, lungs clear and equal throughout. No wheezing, rales, rhonchi. CARDIAC: regular rate and rhythm, no murmur, normal capillary refill, normal pulses. No peripheral edema noted. ABDOMEN: Soft, minimal suprapubic tenderness to palpation. No rebound tenderness or guarding. No mass. BACK: full range of motion, no CVA tenderness. EXTREMITIES: full range of motion of all extremities. No redness, no swelling. NEURO: alert and oriented x 3, no focal deficits, full range of motion of all extremities. PYSCH: appropriate mood, affect. Patient is cooperative. SKIN: pink, warm, dry, no rash. Course - Re-evaluation Re-evalutation: 04/05/20 17:08 Patient nontoxic-appearing with stable vitals. Here with complaints of some suprapubic discomfort and vaginal discharge. She states that she had a hysterectomy on March 08 started having sexual intercourse before she was supposed to. She has minimal suprapubic tenderness on palpation. She is afebrile. Overall she looks well. Urinalysis shows no obvious signs of infection. GC chlamydia is negative. Wet prep is positive for bacterial vaginosis as well as yeast. Patient will be discharged home with Diflucan and Flagyl. Instructions drink plenty of fluids. Follow-up for increased pain, high fever, persistent vomiting, or for any further concerns. - Vital Signs Vital signs: Temp Pulse Resp BP Pulse Ox 98.7 F 87 18 136/78 H 100 04/05/20 12:51 04/05/20 12:51 04/05/20 12:51 04/05/20 12:51 04/05/20 12:51 - Laboratory Results Laboratory Results Interpreted: 04/05/20 13:30 Leukocyte Esterase Rfl SMALL H Critical Laboratory Results Reviewed: No Critical Results - Radiology Results Critical Radiology Results Reviewed: No Critical Results Discharge - Discharge Clinical Impression: Bacterial vaginosis, Yeast infection of the vagina Condition: Stable Disposition: HOME, SELF-CARE Instructions: Vaginal Yeast Infection ([facility]), Vaginosis, Bacterial ([facility]) Additional Instructions: Take medications as prescribed. Drink plenty of fluids. Avoid sexual int ercourse for 1 week. Follow-up with your [facility]ATOR if you continue to have symptoms. Follow-up sooner for worsening pain, high fever, persistent vomiting, or any further concerns. Prescriptions: Fluconazole [Diflucan 100 Mg Tablet] 100 mg PO ONCE #1 tablet Metronidazole [Flagyl 500 mg Tablet] 500 mg PO Q6H #28 tablet Forms: Elevated Blood Pressure Referrals: [facility] [Provider Group] - Follow up as needed
[2020-04-05 17:24] VITALS: BP 130/70
== END 2020-04-05 17:20 | disposition home or self-care (01) ==
LOC: ER 11:55
DX: N76.0 Acute vaginitis (principal); B96.89 Other specified bacterial agents as the cause of diseases classified elsewhere; B37.3 Candidiasis of vulva and vagina; N93.9 Abnormal uterine and vaginal bleeding, unspecified; R10.9 Unspecified abdominal pain; R10.30 Lower abdominal pain, unspecified; Z88.0 Allergy status to penicillin; Z88.8 Allergy status to other drugs, medicaments and biological substances; Z79.899 Other long term (current) drug therapy; I10 Essential (primary) hypertension; J45.909 Unspecified asthma, uncomplicated
CPT/HCPCS: 81001; 87210; 87491; 87591; 99283